=== PATIENT | male | born 1960 | race Caucasian/White ===

== ENCOUNTER 2017-03-27 17:10 | Emergency (ER) | payer OTHER ==
[2017-03-27 17:34] VITALS: BP 131/78
[2017-03-27] MEDS ORDERED: IBUPROFEN 600 MG TABLET PO ONE (17:37)
--- NOTE | 2017-03-27 17:40 | ER Document Report ---
ED Medical Screen (RME) - General Chief Complaint: Fall Stated Complaint: FALL AT WORK/HEAD INJURY Time Seen by Provider: 03/27/17 17:34 Mode of Arrival: Ambulatory Information source: Patient TRAVEL OUTSIDE OF THE [place] IN LAST 30 DAYS: No - HPI Patient complains to provider of: Fall from ladder Onset: This afternoon Notes: 03/27/17 17:39 Patient is a 56-year-old male presenting to the emergency room status post fall from ladder approximately 8 feet in the area, states his right leg got stuck in the latter causing him to land on his head on the ground, he denies loss of consciousness but cannot recall the details of the fall at this point in time, he is complaining of a headache, right sided back pain from the shoulder blade down to the lumbar area, after the fall he went back to work, then went home and took a shower and came to the emergency room - Related Data Allergies/Adverse Reactions: No Known Allergies Allergy (Verified 03/27/17 17:34) Past Medical History - Social History Chew tobacco use (# tins/day): No Frequency of alcohol use: None Drug Abuse: None - Past Medical History Cardiac Medical History: Reports: Hx Hypertension Pulmonary Medical History: Reports: Hx Asthma, Hx COPD Renal/ Medical History: Denies: Hx Peritoneal Dialysis Malignancy Medical History: Reports Hx Skin Cancer - face GI Medical History: Reports: Hx Gastroesophageal Reflux Disease - Immunizations Hx Diphtheria, Pertussis, Tetanus Vaccination: Yes Physical Exam - Vital signs Vitals: Temp Pulse Resp BP Pulse Ox 98.7 F 95 18 131/78 H 98 03/27/17 17:31 03/27/17 17:31 03/27/17 17:31 03/27/17 17:31 03/27/17 17:31 Course - Vital Signs Vital signs: Temp Pulse Resp BP Pulse Ox 98.7 F 95 18 131/78 H 98 03/27/17 17:31 03/27/17 17:31 03/27/17 17:31 03/27/17 17:31 03/27/17 17:31
--- NOTE | 2017-03-27 19:40 | ER Document Report ---
ED Fall - General Chief Complaint: Fall Stated Complaint: FALL AT WORK/HEAD INJURY Time Seen by Provider: 03/27/17 17:34 Mode of Arrival: Ambulatory Information source: Patient TRAVEL OUTSIDE OF THE [place] IN LAST 30 DAYS: No - HPI Patient complains to provider of: fall from ladder Occurred: This afternoon Where: Outdoors, Work Context: Fell from height Associated symptoms: None Location of injury/pain: Back, Head Quality of pain: Achy Severity: Moderate Pain Level: 4 Notes: 03/27/17 17:39 Patient is a 56-year-old male presenting to the emergency room status post fall from ladder approximately 8 feet in the area, states his right leg got stuck in the latter causing him to land on his head on the ground, he denies loss of consciousness but cannot recall the details of the fall at this point in time, he is complaining of a headache, right sided back pain from the shoulder blade down to the lumbar area, after the fall he went back to work, then went home and took a shower and came to the emergency room - Related data Allergies/Adverse Reactions: No Known Allergies Allergy (Verified 03/27/17 17:34) Past Medical History - General Information source: Patient - Social History Smoking Status: Current Some Day Smoker Chew tobacco use (# tins/day): No Frequency of alcohol use: None Drug Abuse: None Family History: Reviewed & Not Pertinent - Past Medical History Cardiac Medical History: Reports: Hx Hypertension Pulmonary Medical History: Reports: Hx Asthma, Hx COPD Renal/ Medical History: Denies: Hx Peritoneal Dialysis Malignancy Medical History: Reports Hx Skin Cancer - face GI Medical History: Reports: Hx Gastroesophageal Reflux Disease - Immunizations Hx Diphtheria, Pertussis, Tetanus Vaccination: Yes Review of Systems - Review of Systems Constitutional: No symptoms reported EENT: No symptoms reported Cardiovascular: No symptoms reported Respiratory: No symptoms reported Gastrointestinal: No symptoms reported Genitourinary: No symptoms reported Male Genitourinary: No symptoms reported Musculoskeletal: See HPI Skin: No symptoms reported Hematologic/Lymphatic: No symptoms reported Neurological/Psychological: No symptoms reported -: Yes All other systems reviewed and negative Physical Exam - Vital signs Vitals: Temp Pulse Resp BP Pulse Ox 98.7 F 95 18 131/78 H 98 03/27/17 17:31 03/27/17 17:31 03/27/17 17:31 03/27/17 17:31 03/27/17 17:31 Interpretation: Normal - General General appearance: Appears well, Alert - HEENT Head: Normocephalic, Atraumatic Eyes: Normal Pupils: PERRL - Respiratory Respiratory status: No respiratory distress Chest status: Nontender Breath sounds: Normal Chest palpation: Normal - Cardiovascular Rhythm: Regular Heart sounds: Normal auscultation Murmur: No - Abdominal Inspection: Normal Distension: No distension Bowel sounds: Normal Tenderness: Nontender Organomegaly: No organomegaly - Back Back: Normal, Tender - Patient has tenderness to palpate in the right paraspinal musculature of the mid to lower thoracic spine in the lumbar spine, there is no ecchymosis, swelling, abrasions or skin lesions - Extremities General upper extremity: Normal inspection, Nontender, Normal color, Normal ROM , Normal temperature General lower extremity: Normal inspection, Nontender, Normal color, Normal ROM , Normal temperature, Normal weight bearing. No: Ludy's sign - Neurological Neuro grossly intact: Yes Cognition: Normal Orientation: AAOx4 [place] Coma Scale Eye Opening: Spontaneous Alex Coma Scale Verbal: Oriented Alex Coma Scale Motor: Obeys Commands [place] Coma Scale Total: 15 Speech: Normal Motor strength normal: LUE, RUE, LLE, RLE Sensory: Normal - Psychological Associated symptoms: Normal affect, Normal mood - Skin Skin Temperature: Warm Skin Moisture: Dry Skin Color: Normal Course - Re-evaluation Re-evalutation: 03/27/17 20:48 Imaging findings were discussed with patient which are unremarkable for acute findings, however he has multiple areas of degenerative changes, he was provided with a copy of CT scan results for the CT head and cervical spine, patient was provided with prescription for pain medication and information for follow-up, advised to return if any additional concerns, patient and spouse acknowledge understanding and agreement with plan - Vital Signs Vital signs: Temp Pulse Resp BP Pulse Ox 98.7 F 95 18 131/78 H 98 03/27/17 17:31 03/27/17 17:31 03/27/17 17:31 03/27/17 17:31 03/27/17 17:31 - Diagnostic Test Radiology reviewed: Image reviewed, Reports reviewed Discharge - Discharge Clinical Impression: Head injury Qualifiers: Encounter type: initial encounter Qualified Code(s): S09.90XA - Unspecified injury of head, initial encounter Lumbar strain Qualifiers: Encounter type: initial encounter Qualified Code(s): S39.012A - Strain of muscle, fascia and tendon of lower back, initial encounter Strain of thoracic region Qualifiers: Encounter type: initial encounter Qualified Code(s): S29.019A - Strain of muscle and tendon of unspecified wall of thorax, initial encounter Condition: Stable Disposition: HOME, SELF-CARE Instructions: Head Injury Precautions ([facility]), Muscle Strain ([facility]), Neck Injury ( Cervical Strain) ([facility]) Additional Instructions: Follow up with your primary care provider in one to 2 days. Return to the emergency room immediately if symptoms worsen or any additional concerns. Prescriptions: Oxycodone HCl/Acetaminophen [Percocet 5-325 mg Tablet] 1 - 2 tab PO ASDIR PRN # 15 tablet PRN Reason: Forms: Return to Work
--- NOTE | 2017-03-29 11:08 | RADIOLOGY REPORT (SQ) ---
EXAM DESCRIPTION: CT CERVICAL SPINE WITHOUT COMPLETED DATE/TIME: 03/27/2017 6:20 pm REASON FOR STUDY: injury COMPARISON: None. TECHNIQUE: Axial images acquired through the cervical spine without intravenous contrast. Images re viewed with lung, soft tissue and bone windows. Reconstructed coronal and sagittal MPR images review ed. Images stored on PACS. LIMITATIONS: None. FINDINGS: ALIGNMENT: Slight scoliosis. No listhesis/subluxation. MINERALIZATION: Normal. VERTEBRAL BODIES: No fractures or dislocation. DISCS: Multilevel disc space narrowing with endplate sclerosis, small osteophytes and irregularities most pronounced at C4-5, C5-6. FACETS, LATERAL MASSES, POSTERIOR ELEMENTS: Lower cervical facet arthropathy. No fracture. VISUALIZED RIBS: No fractures. LUNG APICES AND SOFT TISSUES: No significant or acute findings. OTHER: No other significant finding. IMPRESSION: No acute cervical spine injury evident. TECHNICAL DOCUMENTATION: JOB ID: [id number]
--- NOTE | 2017-03-29 14:05 | RADIOLOGY REPORT (SQ) ---
EXAM DESCRIPTION: T SPINE AP/LAT COMPLETED DATE/TIME: 03/27/2017 7:00 pm REASON FOR STUDY: fall COMPARISON: None. NUMBER OF VIEWS: Two views. TECHNIQUE: AP and lateral radiographic images acquired of the thoracic spine. LIMITATIONS: None. FINDINGS: MINERALIZATION: Normal. ALIGNMENT: Scoliosis convex right thoracolumbar. VERTEBRAE: There appears to be anterior wedge compression of multiple vertebral bodies along the thor acolumbar junction. Associated large osteophytes. Possibly related to Scheuermann's disease althoug h chronic compression fractures in the differential. DISCS: Generalized degenerative disc disease thoracolumbar junction. HARDWARE: None in the spine. MEDIASTINUM AND SOFT TISSUES: Normal heart size and aortic contour. No soft tissue abnormality. VISUALIZED LUNG LARSEN: Clear. OTHER: No other significant finding. IMPRESSION: Thoracolumbar junction scoliosis with anterior wedge compression of multiple to or ronni s and extensive osteophytes. Possibly related to Scheuermann's disease. Appears chronic. TECHNICAL DOCUMENTATION: JOB ID: [id number] [employer]- All Rights Reserved
--- NOTE | 2017-03-29 14:08 | RADIOLOGY REPORT (SQ) ---
EXAM DESCRIPTION: CHEST PA/LAT COMPLETED DATE/TIME: 03/27/2017 7:00 pm REASON FOR STUDY: fall COMPARISON: None. EXAM PARAMETERS: NUMBER OF VIEWS: two views TECHNIQUE: Digital Frontal and Lateral radiographic views of the chest acquired. RADIATION DOSE: NA LIMITATIONS: none FINDINGS: LUNGS AND PLEURA: No opacities, masses or pneumothorax. No pleural effusion. MEDIASTINUM AND HILAR STRUCTURES: No masses or contour abnormalities. HEART AND VASCULAR STRUCTURES: Heart normal size. No evidence for failure. BONES: Multiple age indeterminate thoracolumbar compression fractures. HARDWARE: None in the chest. OTHER: No other significant finding. IMPRESSION: No acute pulmonary disease. TECHNICAL DOCUMENTATION: JOB ID: [id number] [employer]- All Rights Reserved
--- NOTE | 2017-03-29 14:13 | RADIOLOGY REPORT (SQ) ---
EXAM DESCRIPTION: L SPINE WHOLE COMPLETED DATE/TIME: 03/27/2017 7:00 pm REASON FOR STUDY: fall COMPARISON: None. NUMBER OF VIEWS: Five views including obliques. TECHNIQUE: AP, lateral, oblique, and sacral radiographic images acquired of the lumbar spine. LIMITATIONS: None. FINDINGS: MINERALIZATION: Normal. SEGMENTATION: Normal. No transitional anatomy. ALIGNMENT: Scoliosis convex left. VERTEBRAE: There is minimal anterior wedge compression of multiple vertebral bodies at the thoracolum bar junction. Possibly related to Scheuermann's disease. DISCS: Extensive osteophytes in degenerative disc disease thoracolumbar junction at multiple levels. POSTERIOR ELEMENTS: Pedicles and facets are intact. No pars defect or posterior arch defects. HARDWARE: None in the spine. PARASPINAL SOFT TISSUES: Normal. PELVIS: Intact as visualized. No fractures or worrisome bone lesions. SI joints intact. OTHER: No other significant finding. IMPRESSION: Thoracolumbar degenerative disc disease and possible sequelae from Scheuermann's disease . TECHNICAL DOCUMENTATION: JOB ID: [id number] [employer]- All Rights Reserved
--- NOTE | 2017-03-29 15:34 | RADIOLOGY REPORT (SQ) ---
EXAM DESCRIPTION: CT HEAD WITHOUT COMPLETED DATE/TIME: 03/27/2017 6:20 pm REASON FOR STUDY: Injury, pain COMPARISON: none TECHNIQUE: CT brain without IV contrast was performed, 03/27/2017, 1811 hours. Images reviewed at allie ne, subdural, and brain windows. RADIATION DOSE: 64.6 mGy LIMITATIONS: Motion artifact on some of the images FINDINGS: No CT evidence of acute large territory ischemic change, acute intracranial hemorrhage, ma ss effect, or midline shift. Brain parenchyma, ventricles, extra-axial CSF spaces are unremarkable. Bone windows show chronic inflammatory change in the left frontal and left maxillary sinuses. No warner varial fracture. Mastoid air cells clear. IMPRESSION: Limited study from motion artifact. No acute changes.
== END 2017-03-27 19:43 | disposition home or self-care (01) ==
LOC: ER 17:10
DX: S39.012A Strain of muscle, fascia and tendon of lower back, initial encounter (principal); S29.012A Strain of muscle and tendon of back wall of thorax, initial encounter; W11.XXXA Fall on and from ladder, initial encounter; Y99.0 Civilian activity done for income or pay; R51 Headache; F17.200 Nicotine dependence, unspecified, uncomplicated; I10 Essential (primary) hypertension; J44.9 Chronic obstructive pulmonary disease, unspecified; Z85.828 Personal history of other malignant neoplasm of skin; M47.9 Spondylosis, unspecified
CPT/HCPCS: 70450; 71020; 72070; 72110; 72125; 99284

== ENCOUNTER 2017-04-03 12:29 | Emergency (ER) | payer OTHER ==
--- NOTE | 2017-04-03 14:10 | ER Document Report ---
ED General - General Chief Complaint: Back Pain Stated Complaint: WC FOLLOW UP LOWER BACK PAIN Time Seen by Provider: 04/03/17 13:45 Mode of Arrival: Ambulatory Information source: Patient Notes: 56-year-old male presents to ED for complaint of back pain with bilateral arm hand pain and nose pain difficulties urinating. He states he has had back pain since his fall on 03/27/2017 but he has had increased pain now radiating down both legs worse on the left. With no loss of control of bowel or bladder but has had increase in difficulty in urinating. States he since Saturday he has started having difficulty starting his stream even though he feels like he has to urinate. Patient was seen in the emergency room on 03/27/2017. TRAVEL OUTSIDE OF THE [place] IN LAST 30 DAYS: No - HPI Onset: Other - 03/27/2017 with increase in symptoms on 03/30/2017 Onset/Duration: Worse Quality of pain: Sharp, Throbbing Severity: Severe Pain Level: 5 Associated symptoms: Other - Low back pain radiating down to both legs worse on the left increase in difficulty in urinating pain to the left elbow and left hand and increase in pain and the nose. Exacerbated by: Sitting, Movement, Walking Relieved by: Denies Similar symptoms previously: Yes Recently seen / treated by doctor: Yes - Related Data Allergies/Adverse Reactions: No Known Allergies Allergy (Verified 04/03/17 12:48) Past Medical History - General Information source: Patient - Social History Smoking Status: Current Every Day Smoker Cigarette use (# per day): Yes - One third a pack per day Chew tobacco use (# tins/day): No Smoking Education Provided: Yes - Less than 2 minutes Frequency of alcohol use: Social - Couple times a week Drug Abuse: None Occupation: [employer] Lives with: Spouse/Significant other Family History: Reviewed & Not Pertinent Patient has suicidal ideation: No Patient has homicidal ideation: No - Past Medical History Cardiac Medical History: Reports: Hx Hypertension Pulmonary Medical History: Reports: Hx Asthma, Hx COPD Neurological Medical History: Reports: None Endocrine Medical History: Reports: None Renal/ Medical History: Reports: None Malignancy Medical History: Reports Hx Skin Cancer - face GI Medical History: Reports: Hx Gastroesophageal Reflux Disease Musculoskeltal Medical History: Reports None Skin Medical History: Reports None Psychiatric Medical History: Reports: None Traumatic Medical History: Reports: None Infectious Medical History: Reports: None Surgical Hx: Negative Past Surgical History: Reports: None - Immunizations Immunizations up to date: Yes Hx Diphtheria, Pertussis, Tetanus Vaccination: Yes Review of Systems - Review of Systems Constitutional: No symptoms reported EENT: No symptoms reported Cardiovascular: No symptoms reported Respiratory: No symptoms reported Gastrointestinal: No symptoms reported Genitourinary: Other - Difficulty starting his stream but is able to urinate Male Genitourinary: No symptoms reported Musculoskeletal: Back pain, Joint pain - Left elbow and hand, Muscle pain, Muscle stiffness Skin: No symptoms reported Hematologic/Lymphatic: No symptoms reported Neurological/Psychological: No symptoms reported -: Yes All other systems reviewed and negative Physical Exam - Vital signs Vitals: Temp Pulse Resp BP Pulse Ox 98.9 F 84 20 120/60 96 04/03/17 12:52 04/03/17 12:52 04/03/17 12:52 04/03/17 12:52 04/03/17 12:52 Interpretation: Normal - General General appearance: Appears well, Alert - HEENT Head: Normocephalic, Atraumatic Eyes: Normal Pupils: PERRL - Respiratory Respiratory status: No respiratory distress Chest status: Nontender Breath sounds: Normal Chest palpation: Normal - Cardiovascular Rhythm: Regular Heart sounds: Normal auscultation Murmur: No - Abdominal Inspection: Normal Distension: No distension Bowel sounds: Normal Tenderness: Nontender Organomegaly: No organomegaly - Back Back: Normal, Tender, Vertebra tenderness. No: Deformity/step-off, CVA tenderness, Scars, Scoliosis - Extremities General upper extremity: Normal inspection, Nontender, Normal color, Normal ROM , Normal temperature General lower extremity: Normal inspection, Nontender, Normal color, Normal ROM , Normal temperature, Normal weight bearing. No: Ludy's sign - Neurological Neuro grossly intact: Yes Cognition: Normal Orientation: AAOx4 Alex Coma Scale Eye Opening: Spontaneous Alex Coma Scale Verbal: Oriented Mertzon Coma Scale Motor: Obeys Commands Alex Coma Scale Total: 15 Speech: Normal Cranial nerves: Normal Cerebellar coordination: Normal Motor strength normal: LUE, RUE, LLE, RLE Additional motor exam normals: Equal manager protein Babinski reflex: Normal (flexor plantar) Sensory: Normal Biceps - Reflex grade: 2 = Normal Triceps - Reflex grade: 2 = Normal Brachioradialis - Reflex grade: 2 = Normal Knee - Reflex grade: 2 = Normal Ankle - Reflex grade: 2 = Normal - Psychological Associated symptoms: Normal affect, Normal mood - Skin Skin Temperature: Warm Skin Moisture: Dry Skin Color: Normal Course - Re-evaluation Re-evalutation: 04/03/17 17:5 After examining patient early today I called Dr. Valdovinos and discussed his assessment with her and she stated that he would need a MRI with contrast to the lumbar spine. CBC and chemistry were ordered an IV placed. MRI was completed. Dr. Duron just called me and stated that she thinks she can see a fracture of the T10 just out of the line of her MRI and if the pain patient is in a lot of pain and will need some pain medicine and then go to CT for CT of the thoracic spine. CT of the thoracic spine was ordered and morphine was ordered. 04/03/17 19:59 CT of the bite spine showed nothing acute. Patient was discharged home with instructions to follow-up with his Workmen's Comp. doctor tomorrow. Results of the x-ray MRI and CT were given to the patient to take to his primary doctor. Patient encouraged to use ibuprofen ice and warm to his back. Patient instructed to use ice to his elbow and hand. - Vital Signs Vital signs: Temp Pulse Resp BP Pulse Ox 97.8 F 70 12 113/83 96 04/03/17 19:45 04/03/17 19:45 04/03/17 19:45 04/03/17 19:45 04/03/17 19:45 - Laboratory Result Diagrams: 04/03/17 14:20 Laboratory results interpreted by me: 04/03/17 14:20 BUN 26 H - Diagnostic Test Radiology reviewed: Image reviewed, Reports reviewed Discharge - Discharge Clinical Impression: Lumbar strain Qualifiers: Encounter type: subsequent encounter Qualified Code(s): S39.012D - Strain of muscle, fascia and tendon of lower back, subsequent encounter Strain of thoracic region Qualifiers: Encounter type: subsequent encounter Qualified Code(s): S29.019D - Strain of muscle and tendon of unspecified wall of thorax, subsequent encounter Left elbow contusion Qualifiers: Encounter type: initial encounter Qualified Code(s): S50.02XA - Contusion of left elbow, initial encounter Contusion of left hand Qualifiers: Encounter type: initial encounter Qualified Code(s): S60.222A - Contusion of left hand, initial encounter Condition: Stable Disposition: HOME, SELF-CARE Additional Instructions: MUSCLE STRAIN: You have strained a muscle -- torn the fibers within the muscle. This often occurs with strenuous exertion, or during an injury that suddenly stretches the muscle. The seriousness of a strain varies. Some strains heal within days, others cause problems for months. X-rays cannot show a muscle strain. X-rays are taken only if symptoms suggest that a fracture could be present. The usual treatment of a muscle strain is rest and ice packs. Sometimes, a sling, splint, or crutches may be necessary to rest the muscle. The muscle can be used again once pain subsides. Severe strains require a special exercise and stretching program to prevent permanent stiffness and disability. Your doctor will advise you if this will be necessary. Call the doctor immediately if pain or swelling becomes severe, or if numbness or discoloration develop. CONTUSION: Your injury has resulted in a contusion -- a crushing of the deep tissues. No injury to important structures was detected during the physician's exam. Contusions vary in the amount of pain they cause, and in the length of time required for healing. Typically, the area will become bruised, and will remain painful to touch for two or three weeks. However, most patients are back to working and playing within a few days. After the initial period of rest and cold-packs, your symptoms (together with the doctor's recommendations) will determine how rapidly you can get back to full activity. Usually this means "do what feels okay, but don't do things that hurt." If re-examination was recommended, it's important to follow up as instructed. Call the doctor or return any time if pain increases, if swelling becomes severe, if you develop numbness or weakness in an injured extremity, or if any other alarming symptoms occur. LOW BACK PAIN: Three out of every four people will have an episode of disabling back pain during their lifetime. Most commonly the pain is due to straining of the muscles and ligaments in the low back. Usual treatment includes: (1) Rest on a firm surface. Avoid lying on your stomach. (2) Ice pack the painful area. After a few days, gentle heat may be used intermittently to relax the area, or ice packs can be continued. (3) Medication may be needed -- muscle relaxers and antiinflammatory medicines are commonly used. (4) As the back improves, exercises are prescribed to strengthen the back and abdominal muscles. Your doctor will advise you on the proper care for your back at each stage in your recovery. You may be better in a few days -- or healing may take several weeks. If new symptoms of a "herniated disc" (radiation of pain, numbness, or tingling down the back of the leg or weakness in the leg) occur, you should be re-examined. Further testing may be necessary. PAIN MEDICATION INJECTION: You have received an injection of a pain medication. You should experience significant pain relief within 45 minutes. If this medication is a narcotic, it will impair your judgement, slow your reaction time and make you sleepy (as well as relieve your pain). Narcotics also can cause nausea. You should not drive, work with machinery, or perform any task requiring mental alertness until all effects of the medication are gone -- six to eight hours. Do not take any alcohol, or sedatives, and do not take any other medication without checking with your physician. USE OF TYLENOL (ACETAMINOPHEN): Acetaminophen may be taken for pain relief or fever control. It's much safer than aspirin, offering a wider range of "safe" dosages. It is safe during . Some brand names are Tylenol, Panadol, Datril, Anacin 3, Tempra, and Liquiprin. Acetaminophen can be repeated every four hours. The following are maximum recommended dosages: WEIGHT Dose Drops Elixir Chewable( 80mg) (LBS.) drprs=droppers tsp=teaspoon 6 40 mg 0.4 ml (1/2) 6-11 80 mg 0.8 ml (full) tsp 1 tab 12-16 120 mg 1 1/2 drprs 3/4 tsp 1 1/2 tabs 17-23 160 mg 2 drprs 1 tsp 2 tabs 24-30 240 mg 3 drprs 1 1/2 tsp 3 tabs 30-35 320 mg 2 tsp 4 tabs 36-41 360 mg 2 1/4 tsp 4 1/2 tabs 42-47 400 mg 2 1/2 tsp 5 tabs 48-53 480 mg 3 tsp 6 tabs 54-59 520 mg 3 1/4 tsp 6 1/2 tabs 60-64 560 mg 3 1/2 tsp 7 tabs 65-70 600 mg 3 3/4 tsp 7 1/2 tabs 71-76 640 mg 4 tsp 8 tabs 77-82 720 mg 4 1/2 tsp 9 tabs 83-88 800 mg 5 tsp 10 tabs >89 pounds or adults 650 mg to 900 mg Acetaminophen can be repeated every four hours. Maximum dose not to exceed 4000 mg a day. These maximum recommended dosages are slightly higher than the dosages written on the product container, but these dosages are very safe and below the toxic dosage for acetaminophen. ICE PACKS: Apply ice packs frequently against the painful area. Many different schedules are recommended, such as "20 minutes on, 20 minutes off" or "one hour ice, two hours rest." If you need to work, you may need to go longer between ice treatments. You should plan to have the area ice packed AT LEAST one fourth of the time. The ice should be applied over the wrap, tape, or splint, or over a layer of cloth -- not directly against the skin. Some ice bags have a built-in cloth and can be put directly on the skin. WARM PACKS: After approximately two days, apply gentle heat (such as a heating pad or hot water bottle) for about 20 to 30 minutes about every two hours -- at least four times daily. Warmth and elevation will help you make a more rapid recovery , and will ease the pain considerably. Do not use HOT heat, and never apply heat for longer than 30 minutes. The continuous heat can invisibly damage skin and muscles -- even when no burn is seen on the surface. Damaged muscles can make you MORE sore. FOLLOW-UP CARE: If you have been referred to a physician for follow-up care, call the physician s office for an appointment as you were instructed or within the next two days. If you experience worsening or a significant change in your symptoms, notify the physician immediately or return to the Emergency Department at any time for re-evaluation. You have had a x-ray of your hand and elbow that showed no acute injuries. He then had a MRI of your lumbar spine due to you stating you were having difficulty urinating. The MRI showed swelling at the thoracic spine and the radiologist recommended a CT of the thoracic spine. This was completed but there was no fractures of the thoracic spine. All changes were degenerative changes with no acute injuries. A written report of your CT, MRI, and x-rays were given to you to take to your primary doctor to follow-up.
[2017-04-03 14:55] LABS: ANION GAP 6 (5-19); BLOOD UREA NITROGEN 26 mg/dL (7-20); CALCIUM 9.3 mg/dL (8.4-10.2); CARBON DIOXIDE 29 mmol/L (22-30); CHLORIDE 106 mmol/L (98-107); CREATININE RESULT 0.75 mg/dL (0.52-1.25); GLUCOSE 95 mg/dL (75-110); POTASSIUM 4.3 mmol/L (3.6-5.0); SODIUM 141.3 mmol/L (137-145)
[2017-04-03 15:08] LABS: APPEARANCE,URINE CLEAR; BILIRUBIN,URINE NEGATIVE (NEGATIVE); GLUCOSE, URINE NEGATIVE (NEGATIVE); KETONES,URINE NEGATIVE (NEGATIVE); LEUKOCYTE ESTERASE,URINE NEGATIVE (NEGATIVE); NITRITE,URINE NEGATIVE (NEGATIVE); PROTEIN,URINE NEGATIVE (NEGATIVE); URINE SPECIFIC GRAVITY 1.028; UROBILINOGEN,URINE NEGATIVE mg/dL (<2.0)
--- NOTE | 2017-04-03 15:29 | RADIOLOGY REPORT (SQ) ---
EXAM DESCRIPTION: HAND LEFT 3 VIEWS COMPLETED DATE/TIME: 04/03/2017 3:05 pm REASON FOR STUDY: fall 03/27/17 increase in pain COMPARISON: None. EXAM PARAMETERS: NUMBER OF VIEWS: Three views. TECHNIQUE: AP, lateral and oblique radiographic images acquired of the left hand. LIMITATIONS: None. FINDINGS: MINERALIZATION: Normal. BONES: No acute fracture or dislocation. No worrisome bone lesions. JOINTS: Mild joint space narrowing and bony spurring at the left thumb interphalangeal joint. SOFT TISSUES: Faintly radiopaque 4 x 0.5 mm soft tissue foreign body in the ulnar aspect of the thumb soft tissues at the level of the distal phalanx. This is marked with an arrow. OTHER: No other significant finding. IMPRESSION: No acute fracture or malalignment. Faintly radiopaque foreign body in the soft tissues ulnar aspect, left thumb TECHNICAL DOCUMENTATION: JOB ID: [id number] [id number]- All Rights Reserved
--- NOTE | 2017-04-03 15:30 | RADIOLOGY REPORT (SQ) ---
EXAM DESCRIPTION: ELBOW LEFT OVER 2 VIEWS COMPLETED DATE/TIME: 04/03/2017 3:05 pm REASON FOR STUDY: fall 03/27/17 increase in pain COMPARISON: None. NUMBER OF VIEWS: Four views. TECHNIQUE: AP, lateral, and both oblique radiographic images acquired of the left elbow. LIMITATIONS: None. FINDINGS: MINERALIZATION: Normal. BONES: No acute fracture or dislocation. No worrisome bone lesions. JOINT: No effusion. SOFT TISSUES: No soft tissue swelling. No foreign body. OTHER: No other significant finding. IMPRESSION: NEGATIVE STUDY OF THE LEFT ELBOW. NO RADIOGRAPHIC EVIDENCE OF ACUTE INJURY. TECHNICAL DOCUMENTATION: JOB ID: [id number] [employer]- All Rights Reserved
[2017-04-03] MEDS ORDERED: MORPHINE SULFATE 10 MG/ML INJ IV ONE (17:54)
--- NOTE | 2017-04-03 17:59 | RADIOLOGY REPORT (SQ) ---
EXAM DESCRIPTION: MRI LUMBAR SPINE WITHOUT COMPLETED DATE/TIME: 04/03/2017 5:41 pm REASON FOR STUDY: urinary retention back injury consulted Dr Ashford COMPARISON: Lumbar spine plain films 03/27/2017 TECHNIQUE: Sagittal and Axial imaging includes T1, T2, STIR and gradient echo sequences. Coronal T2/ HASTE imaging. LIMITATIONS: Motion artifact on the T1 and STIR images FINDINGS: VISUALIZED UPPER ABDOMEN: Limited evaluation. No acute or suspicious findings suggested. SEGMENTATION: No transitional anatomy. The lowest well-developed disc space is labeled L5-S1. ALIGNMENT: Mild grade 1 anterolisthesis of L4 over L5 related to advanced facet arthropathy. VERTEBRAE: Intact. BONE MARROW: There is edema in the bilateral pedicles at T10 and the facet articular processes. Frac tures do this area could not be excluded. This finding was discussed with Sherry in the emergency ro om DISC SIGNAL: Diffuse decreased T2 weighted intervertebral disc signal with multilevel disc space loss of height. POSTERIOR ELEMENTS: Generally intact. No pars defect evident. HARDWARE: None in the spine. CORD AND CONUS: Normal in size and signal intensity. Conus at the T12-L1 level. SOFT TISSUES: No aortic aneurysm seen. No bulky retroperitoneal adenopathy or mass. No paraspinal mas s or fluid. T10-11: At the upper edge of the field of view. There is broad diffuse posterior disc bulging left greater than right with mild central canal stenosis and moderate left foraminal narrowing. No right foraminal narrowing. T11-12: Broad diffuse posterior disc bulging is present with mild central canal stenosis and mild bi lateral inferior foraminal narrowing. No distal thoracic cord impingement. T12-L1: Broad diffuse posterior disc bulging is present with mild bilateral facet hypertrophy. Mild central canal stenosis. Moderate right, mild left foraminal narrowing from facet hypertrophy and di sc bulging. L1-L2: Moderate central canal stenosis with effacement of the CSF around the lumbar nerve roots from broad diffuse posterior disc bulging and bulky bilateral facet and ligament hypertrophy. Moderate ri ght, mild left foraminal narrowing. L2-L3: Moderate to high-grade central canal stenosis results from broad diffuse posterior disc bulge and bony spurring and bulky bilateral facet and ligament hypertrophy. There is effacement of the CSF around the lumbar nerve roots. This is best shown on axial T2 series 6, image 17. Mild right, mode rate left foraminal narrowing without definite exiting L2 nerve root impingement. L3-L4: Mild central canal stenosis results from broad diffuse disc bulge and bony spurring and bulky bilateral facet and ligament hypertrophy. Mild bilateral inferior foraminal narrowing without exitin g L3 nerve root impingement. L4-L5: Moderate central canal stenosis results from broad diffuse posterior disc bulge and bulky bila teral facet and ligament hypertrophy along with grade 1 anterolisthesis of L4 over L5. This is best shown on axial T2 series 6, image 28. Mild right, moderate left foraminal narrowing without exiting L4 nerve root impingement. L5-S1: No significant spinal stenosis or exit foraminal stenosis. SACRUM: Visualized upper sacrum intact. OTHER: No evidence of epidural hematoma. No evidence of acute lumbar compression fracture. Bilatera l T10 pedicle and posterior facet articular process edema, fracture this area could not be excluded IMPRESSION: Bilateral T10 pedicle and posterior facet articular process edema, fracture in this area could not be excluded. This is at the upper edge of the field of view on today's lumbar MR No acute changes over the lumbar spine TECHNICAL DOCUMENTATION: JOB ID: [id number] [employer]- All Rights Reserved
--- NOTE | 2017-04-03 19:05 | RADIOLOGY REPORT (SQ) ---
EXAM DESCRIPTION: CT THORACIC SPINE WITHOUT COMPLETED DATE/TIME: 04/03/2017 6:26 pm REASON FOR STUDY: back pain recommended ct by Dr Muniz COMPARISON: MRI dated 04/03/2017 TECHNIQUE: Axial images acquired through the thoracic spine without intravenous contrast. Images re viewed with lung, soft tissue and bone windows. Reconstructed coronal and sagittal MPR images review ed. Images stored on PACS. All CT scanners at this facility use dose modulation, iterative reconstruction, and/or weight based d osing when appropriate to reduce radiation dose to as low as reasonably achievable (ALARA). [facility]: Dose Right [facility]: CareDose [facility]: Dose Right [facility]: Teradose 4D [facility]: Smart [employer] RADIATION DOSE: Up-to-date CT equipment and radiation dose reduction techniques were employed. CTDIv ol: 38.2 mGy. DLP: 1366 mGy-cm. mGy. LIMITATIONS: None. FINDINGS: VISUALIZED LUNGS: No acute opacities. No pneumothorax. SOFT TISSUES: No soft tissue swelling. No masses. VERTEBRAL BODIES: Mild chronic wedging of T11 and T12. No acute fracture DISCS: Mild degenerative disc disease extending from T1 through T11 with severe degenerative disc dis ease extending from T11 through L3. ALIGNMENT: Mild scoliosis. TRANSVERSE PROCESSES, POSTERIOR ELEMENTS: No fracture. Severe degenerative changes involving some of the facet joints including T10-T11 which would account for the edema seen on recent MRI. HARDWARE: None in the spine. VISUALIZED RIBS: No fractures. OTHER: No other significant finding. IMPRESSION: 1. Degenerative changes without evidence of acute fracture. 2. The edema described on recent MRI is related to severe degenerative changes involving the facet j oints. TECHNICAL DOCUMENTATION: JOB ID: [id number] Quality ID # [id number]: Final reports with documentation of one or more dose reduction techniques (e.g., Au tomated exposure control, adjustment of the mA and/or kV according to patient size, use of iterative reconstruction technique) 2010 [employer]- All Rights Reserved
[2017-04-03 19:47] VITALS: BP 113/83
== END 2017-04-03 19:52 | disposition home or self-care (01) ==
LOC: ER 12:29
DX: S39.012A Strain of muscle, fascia and tendon of lower back, initial encounter (principal); S29.012A Strain of muscle and tendon of back wall of thorax, initial encounter; S50.02XA Contusion of left elbow, initial encounter; S60.222A Contusion of left hand, initial encounter; W11.XXXA Fall on and from ladder, initial encounter; Y99.0 Civilian activity done for income or pay; R39.12 Poor urinary stream; I10 Essential (primary) hypertension; J44.9 Chronic obstructive pulmonary disease, unspecified; F17.210 Nicotine dependence, cigarettes, uncomplicated
CPT/HCPCS: 99284; 96374; 36415; 80048; 81001; 72148; 73080; 73130; 72128; J2270

== ENCOUNTER 2017-04-25 12:07 | Emergency (ER) | payer OTHER ==
[2017-04-25] MEDS ORDERED: NORMAL SALINE 1000 ML 1,000 ML IV ONE (12:37)
[2017-04-25] MEDS ORDERED: KETOROLAC TROMETHAMINE INJ/PF 30 MG/1 ML SDV IV ONE (12:37)
--- NOTE | 2017-04-25 12:44 | ER Document Report ---
ED Medical Screen (RME) - General Chief Complaint: Abdominal Pain Stated Complaint: RIGH SIDE ABDOMINAL PAIN, SWELLING Time Seen by Provider: 04/25/17 12:36 Mode of Arrival: Ambulatory Information source: Patient TRAVEL OUTSIDE OF THE [place] IN LAST 30 DAYS: No - HPI Patient complains to provider of: abd pain Onset: Other - pt. with 2-3 day h/o R-sided abd pain with exacerbation today. Also has noticed some swelling of abd. on that side. - Related Data Allergies/Adverse Reactions: No Known Allergies Allergy (Verified 04/25/17 12:14) Past Medical History - Social History Chew tobacco use (# tins/day): No Frequency of alcohol use: Occasional Drug Abuse: None - Past Medical History Cardiac Medical History: Reports: Hx Hypertension Pulmonary Medical History: Reports: Hx Asthma, Hx COPD Renal/ Medical History: Denies: Hx Peritoneal Dialysis Malignancy Medical History: Reports Hx Skin Cancer - face GI Medical History: Reports: Hx Gastroesophageal Reflux Disease - Immunizations Immunizations up to date: Yes Hx Diphtheria, Pertussis, Tetanus Vaccination: Yes Physical Exam - Vital signs Vitals: Temp Pulse BP Pulse Ox 97.9 F 103 H 151/89 H 96 04/25/17 12:11 04/25/17 12:11 04/25/17 12:11 04/25/17 12:11 Course - Vital Signs Vital signs: Temp Pulse Resp BP Pulse Ox 97.9 F 103 H 151/89 H 96 04/25/17 12:11 04/25/17 12:11 04/25/17 12:11 04/25/17 12:11
[2017-04-25 13:27] LABS: ABSOLUTE BASOPHILS # (AUTO) 0.1 10^3/uL (0.0-0.2); ABSOLUTE EOSINOPHILS # (AUTO) 0.2 10^3/uL (0.0-0.6); ABSOLUTE LYMPHOCYTES (AUTO) 1.7 10^3/uL (0.5-4.7); ABSOLUTE MONOCYTES (AUTO) 0.5 10^3/uL (0.1-1.4); ABSOLUTE NEUT (AUTO) 4.9 10^3/uL (1.7-8.2); APPEARANCE,URINE CLEAR; BASOPHILS % (AUTO) 0.9 % (0-2); BILIRUBIN,URINE NEGATIVE (NEGATIVE); GLUCOSE, URINE NEGATIVE (NEGATIVE); HEMATOCRIT 48.6 % (37.9-51.0); HEMOGLOBIN 16.6 g/dL (13.5-17.0); HGB HCT DIFFERENCE 1.2; KETONES,URINE NEGATIVE (NEGATIVE); LEUKOCYTE ESTERASE,URINE SMALL (NEGATIVE); LYMPHOCYTES % (AUTO) 23.2 % (13-45); MEAN CORPUSCULAR HEMOGLOBIN 32.4 pg (27.0-33.4); MEAN CORPUSCULAR HGB CONC 34.1 g/dL (32.0-36.0); MEAN CORPUSCULAR VOLUME 95 fl (80-97); NITRITE,URINE NEGATIVE (NEGATIVE); PROTEIN,URINE NEGATIVE (NEGATIVE); RED BLOOD COUNT 5.12 10^6/uL (4.35-5.55); RED CELL DISTRIBUTION WIDTH 13.8 % (11.5-14.0); SEGMENTED NEUTROPHILS % (AUTO) 66.9 % (42-78); URINE SPECIFIC GRAVITY 1.008; UROBILINOGEN,URINE NEGATIVE mg/dL (<2.0); WHITE BLOOD COUNT 7.4 10^3/uL (4.0-10.5)
[2017-04-25 13:43] LABS: ALANINE AMINOTRANSFERASE 38 U/L (21-72); ALBUMIN 4.3 g/dL (3.5-5.0); ALKALINE PHOSPHATASE 129 U/L (38-126); ANION GAP 13 (5-19); ASPARTATE AMINO TRANSFERASE 25 U/L (17-59); BILIRUBIN,DIRECT 0.3 mg/dL (0.0-0.4); BILIRUBIN,TOTAL 0.5 mg/dL (0.2-1.3); BLOOD UREA NITROGEN 14 mg/dL (7-20); CARBON DIOXIDE 26 mmol/L (22-30); CHLORIDE 103 mmol/L (98-107); CREATININE RESULT 0.73 mg/dL (0.52-1.25); GLUCOSE 97 mg/dL (75-110); LIPASE 50.4 U/L (23-300); POTASSIUM 4.6 mmol/L (3.6-5.0); SODIUM 141.7 mmol/L (137-145); TOTAL PROTEIN 7.3 g/dL (6.3-8.2)
[2017-04-25] MEDS ORDERED: MORPHINE SULFATE 10 MG/ML INJ IV ONE (13:53)
--- NOTE | 2017-04-25 13:53 | ER Document Report ---
ED General - General Chief Complaint: Abdominal Pain Stated Complaint: RIGH SIDE ABDOMINAL PAIN, SWELLING Time Seen by Provider: 04/25/17 12:36 Mode of Arrival: Ambulatory Information source: Patient Notes: 56-year-old male presents with complaints of right flank pain that started 2 days prior. Patient denies any fevers or chills denies any nausea vomiting. Patient admits that it hurts on the side more than on the abdomen itself. Patient still has his appendix TRAVEL OUTSIDE OF THE [place] IN LAST 30 DAYS: No - HPI Onset: Other Onset/Duration: Persistent Quality of pain: Achy Severity: Mild Pain Level: 1 Associated symptoms: Other Exacerbated by: Movement Relieved by: Denies Similar symptoms previously: No Recently seen / treated by doctor: No - Related Data Allergies/Adverse Reactions: No Known Allergies Allergy (Verified 04/25/17 12:14) Home Medications: Current Home Medications Amlodipine Besylate/Benazepril [Amlodipine-Benazepril 10-40 mg] 1 cap PO DAILY 04/25/17 [History] Baclofen [Baclofen 20 Mg Tablet] 20 mg PO BID PRN 04/25/17 [History] Budesonide/Formoterol Fumarate [Symbicort 160-4.5 Mcg Inhaler] 2 puff IH BID [History] Clonazepam 0.5 mg PO DAILY 04/25/17 [History] Cyclobenzaprine HCl [Flexeril 10 mg Tablet] 10 mg PO TIDP PRN 04/25/17 [History] Naproxen 500 mg PO BID 04/25/17 [History] Sertraline HCl [Zoloft] 25 mg PO DAILY 04/25/17 [History] Tiotropium [place] [Spiriva] 2 puff IH DAILY 04/25/17 [History] Past Medical History - General Information source: Patient - Social History Smoking Status: Current Some Day Smoker Cigarette use (# per day): Yes Chew tobacco use (# tins/day): No Smoking Education Provided: No Frequency of alcohol use: Occasional Drug Abuse: None Family History: Reviewed & Not Pertinent - Past Medical History Cardiac Medical History: Reports: Hx Hypertension Pulmonary Medical History: Reports: Hx Asthma, Hx COPD Renal/ Medical History: Denies: Hx Peritoneal Dialysis Malignancy Medical History: Reports Hx Skin Cancer - face GI Medical History: Reports: Hx Gastroesophageal Reflux Disease - Immunizations Immunizations up to date: Yes Hx Diphtheria, Pertussis, Tetanus Vaccination: Yes Review of Systems - Review of Systems Notes: REVIEW OF SYSTEMS: CONSTITUTIONAL : Denies fever, chills, or sweats. Denies recent illness. EENT: Denies eye, ear, throat, or mouth pain or symptoms. Denies nasal or sinus congestion or discharge. Denies throat, tongue, or mouth swelling or difficulty swallowing. CARDIOVASCULAR: Denies chest pain. Denies palpitations or racing or irregular heart beat. Denies ankle edema. RESPIRATORY: Denies cough, cold, or chest congestion. Denies shortness of breath, difficulty breathing, or wheezing. GASTROINTESTINAL: Admits to right flank pain GENITOURINARY: Denies difficulty urinating, painful urination, burning, frequency, blood in urine, or discharge. MUSCULOSKELETAL: Denies back or neck pain or stiffness. Denies joint pain or swelling. SKIN: Denies rash, lesions or sores. HEMATOLOGIC : Denies easy bruising or bleeding. LYMPHATIC: Denies swollen, enlarged glands. NEUROLOGICAL: Denies confusion or altered mental status. Denies passing out or loss of consciousness. Denies dizziness or lightheadedness. Denies headache. Denies weakness or paralysis or loss of use of either side. Denies problems with gait or speech. Denies sensory loss, numbness, or tingling. Denies seizures. PSYCHIATRIC: Denies anxiety or stress. Denies depression, suicidal ideation, or homicidal ideation. ALL OTHER SYSTEMS REVIEWED AND NEGATIVE. Dictation was performed using [employer] voice recognition software PHYSICAL EXAMINATION: GENERAL: Well-appearing, well-nourished and in no acute distress. HEAD: Atraumatic, normocephalic. EYES: Pupils equal round and reactive to light, extraocular movements intact, sclera anicteric, conjunctiva are normal. ENT: Nares patent, oropharynx clear without exudates. Moist mucous membranes. NECK: Normal range of motion, supple without lymphadenopathy LUNGS: Breath sounds clear to auscultation bilaterally and equal. No wheezes rales or rhonchi. HEART: Regular rate and rhythm without murmurs ABDOMEN: Soft, right flank pain Musculoskeletal: Normal range of motion, no pitting or edema. No cyanosis. NEUROLOGICAL: Cranial nerves grossly intact. Normal speech, normal gait. Normal sensory, motor exams PSYCH: Normal mood, normal affect. SKIN: Warm, Dry, normal turgor, no rashes or lesions noted. Physical Exam - Vital signs Vitals: Temp Pulse BP Pulse Ox 97.9 F 103 H 151/89 H 96 04/25/17 12:11 04/25/17 12:11 04/25/17 12:11 04/25/17 12:11 Course - Re-evaluation Re-evalutation: 04/25/17 13:52 Patient will be sent for CT imaging, lab work so far notes no significant abnormality - Vital Signs Vital signs: Temp Pulse Resp BP Pulse Ox 97.9 F 103 H 151/89 H 96 04/25/17 12:11 04/25/17 12:11 04/25/17 12:11 04/25/17 12:11 - Laboratory Result Diagrams: 04/25/17 13:10 04/25/17 13:10 Laboratory results interpreted by me: 04/25/17 04/25/17 13:10 13:10 Alkaline Phosphatase 129 H Ur Leukocyte Esterase SMALL H Discharge - Discharge Clinical Impression: Right flank pain DDD (degenerative disc disease) Qualifiers: Spinal region: lumbar Qualified Code(s): M51.36 - Other intervertebral disc degeneration, lumbar region Condition: Stable Disposition: HOME, SELF-CARE Instructions: Flank Pain ([facility]) Additional Instructions: Follow up with your physician tomorrow for further care or return to the ED IMMEDIATELY if symptoms worsen or new concerns occur. If you cannot afford to follow up with your primary care physician a list of low cost clinics have been provided at the end of your discharge papers as well. Prescriptions: Hydrocodone/Acetaminophen [[place] 5-325 mg Tablet] 1 tab PO Q6 #14 tablet
--- NOTE | 2017-04-25 14:37 | RADIOLOGY REPORT (SQ) ---
EXAM DESCRIPTION: CT ABD/PELVIS WITH IV ONLY COMPLETED DATE/TIME: 04/25/2017 2:14 pm REASON FOR STUDY: abd pain COMPARISON: None. TECHNIQUE: CT scan of the abdomen and pelvis performed using helical scanning technique with dynamic intravenous contrast injection. No oral contrast. Images reviewed with lung, soft tissue, and bone windows. Reconstructed coronal and sagittal MPR images reviewed. Delayed images for evaluation of the urinary system also acquired. All images stored on PACS. All CT scanners at this facility use dose modulation, iterative reconstruction, and/or weight based d osing when appropriate to reduce radiation dose to as low as reasonably achievable (ALARA). [facility]: Dose Right [facility]: CareDose [facility]: Dose Right [facility]: Teradose 4D [facility]: [employer] CONTRAST TYPE AND DOSE: contrast/concentration: Isovue 370.00 mg/ml; Total Contrast Delivered: 100.0 ml; Total Saline Delivered: 70.0 ml RENAL FUNCTION: Creatinine 0.73. RADIATION DOSE: Up-to-date CT equipment and radiation dose reduction techniques were employed. CTDIv ol: 16.4 - 19.5 mGy. DLP: 1729 mGy-cm.. LIMITATIONS: None. FINDINGS: LOWER CHEST: No significant findings. No nodules or infiltrates. LIVER: Normal size. No masses. No dilated ducts. SPLEEN: Normal size. No focal lesions. PANCREAS: No masses. No significant calcifications. No adjacent inflammation or peripancreatic fluid collections. Pancreatic duct not dilated. GALLBLADDER: No identified stones by CT criteria. No inflammatory changes to suggest cholecystitis. ADRENAL GLANDS: No significant masses or asymmetry. RIGHT KIDNEY AND URETER: No solid masses. No significant calcifications. No hydronephrosis or hyd roureter. LEFT KIDNEY AND URETER: No solid masses. No significant calcifications. No hydronephrosis or hydr oureter. AORTA AND VESSELS: No aneurysm. No dissection. Renal arteries, SMA, celiac without stenosis. RETROPERITONEUM: No retroperitoneal adenopathy, hemorrhage or masses. BOWEL AND PERITONEAL CAVITY: No masses or inflammatory changes. No free fluid or peritoneal masses. APPENDIX: Normal. PELVIS: No mass. No free fluid. Normal bladder. ABDOMINAL WALL: No masses. No hernias. BONES: No significant or acute findings. Severe degenerative disc disease extending from T11 through L2. Mild chronic anterior wedging of T10 and T11. Mild grade 1 anterolisthesis of L4 on L5 which a ppears degenerative OTHER: No other significant finding. IMPRESSION: ACUTE FINDING IN THE ABDOMEN OR PELVIS ON CT SCAN WITH IV CONTRAST. TECHNICAL DOCUMENTATION: JOB ID: [id number] Quality ID # [id number]: Final reports with documentation of one or more dose reduction techniques (e.g., Au tomated exposure control, adjustment of the mA and/or kV according to patient size, use of iterative reconstruction technique) 2010 [employer]- All Rights Reserved
[2017-04-25 15:30] VITALS: BP 124/84
== END 2017-04-25 15:30 | disposition home or self-care (01) ==
LOC: ER 12:07
DX: R10.9 Unspecified abdominal pain (principal); M51.36 Other intervertebral disc degeneration, lumbar region; F17.210 Nicotine dependence, cigarettes, uncomplicated; I10 Essential (primary) hypertension; J44.9 Chronic obstructive pulmonary disease, unspecified; J45.909 Unspecified asthma, uncomplicated; Z85.828 Personal history of other malignant neoplasm of skin
CPT/HCPCS: 99284; 96361; 96374; 96375; 36415; 83690; 85025; 80053; 81001; 74177; J1885; J2270; J7030

== ENCOUNTER 2018-04-14 14:20 | Emergency (ER) | payer OTHER ==
[2018-04-14] MEDS ORDERED: MORPHINE SULFATE 10 MG/ML INJ IV ONE (15:02)
--- NOTE | 2018-04-14 15:09 | ER Document Report ---
ED General - General Chief Complaint: Breathing Difficulty Stated Complaint: TROUBLE BREATHING Time Seen by Provider: 04/14/18 14:54 TRAVEL OUTSIDE OF THE [place] IN LAST 30 DAYS: No - HPI Notes: 57-year-old male history of COPD and hypertension presents with increasing shortness of breath and left-sided rib pain over the past week. He admits to falling last week and hit his left fist against his left ribs when he fell. He was seen by his primary care physician the next day. X-ray was unremarkable. He was prescribed prednisone and Mobic. He has been using regularly scheduled inhalers and has had continued shortness of breath. He also feels as if his lips are tingling. He feels like his tongue is swollen because he keeps biting the right side of his tongue. He has chronic leg swelling that is unchanged. Denies history of clots or travel. No fevers, but has had sweats and chills. Denies hemoptysis or significant cough. Patient states left-sided rib pain is worse with any attempted cough. After I left the room he told the nurse that he fell again last night and hit his nose while looking in the mirror. - Related Data Allergies/Adverse Reactions: No Known Allergies Allergy (Verified 04/14/18 14:23) Past Medical History - Social History Smoking Status: Current Every Day Smoker Family History: Reviewed & Not Pertinent - Past Medical History Cardiac Medical History: Reports: Hx Hypertension Pulmonary Medical History: Reports: Hx Asthma, Hx COPD Renal/ Medical History: Denies: Hx Peritoneal Dialysis Malignancy Medical History: Reports Hx Skin Cancer - face GI Medical History: Reports: Hx Gastroesophageal Reflux Disease - Immunizations Immunizations up to date: Yes Hx Diphtheria, Pertussis, Tetanus Vaccination: Yes Review of Systems - Review of Systems Notes: Constitutional: Negative for fever. Positive for sweats and chills HENT: Negative for sore throat. Eyes: Negative for visual changes. Cardiovascular: Positive for chest pain. Respiratory: Positive for shortness of breath. Negative for cough or hemoptysis Gastrointestinal: Negative for abdominal pain, vomiting or diarrhea. Genitourinary: Negative for dysuria. Musculoskeletal: Negative for back pain. Skin: Negative for rash. Neurological: Negative for headaches, weakness or numbness. 10 point ROS negative except as marked above and in HPI. Physical Exam - Vital signs Vitals: Temp Pulse Resp BP Pulse Ox 98.6 F 109 H 26 H 138/94 H 96 04/14/18 14:23 04/14/18 14:23 04/14/18 14:23 04/14/18 14:23 04/14/18 14:23 - Notes Notes: PHYSICAL EXAMINATION: GENERAL: Well-appearing, well-nourished and in no acute distress. Appears anxious HEAD: Atraumatic, normocephalic. EYES: Pupils equal round and reactive to light, extraocular movements intact, conjunctiva are normal. ENT: nares patent, oropharynx clear without exudates. Moist mucous membranes. NECK: Normal range of motion, supple without lymphadenopathy LUNGS: Breath sounds clear to auscultation bilaterally and equal. No wheezes rales or rhonchi. Tachypnea. Slightly diminished breath sounds HEART: Regular rhythm, tachycardic, moderate left lower lateral rib tenderness. Few scattered areas of ecchymosis. No crepitus ABDOMEN: Soft, nontender, normoactive bowel sounds. No guarding, no rebound. No masses appreciated. EXTREMITIES: Normal range of motion, mild bilateral nonpitting edema. No cyanosis. NEUROLOGICAL: Cranial nerves grossly intact. Normal speech, normal gait. Normal sensory and motor exams. PSYCH: Normal mood, normal affect. SKIN: Warm, Dry, normal turgor, no rashes or lesions noted. Course - Re-evaluation Re-evalutation: 04/14/18 19:34 Extensive workup unremarkable. No hypoxia. CT shows no pulmonary embolism, small pleural effusion or pneumothorax. No obvious rib fractures. 2 troponins negative. No significant wheezing or diminished lung sounds. Advised importance of primary care follow-up. At this time will discharge with return precautions and follow-up recommendations. Verbal discharge instructions given a the bedside and opportunity for questions given. Medication warnings reviewed. Patient is in agreement with this plan and has verbalized understanding of return precautions and the need for primary care follow-up in the next 24-72 hours. Voice dictation software was used. Chart was reviewed, but errors may exist. - Vital Signs Vital signs: Temp Pulse Resp BP Pulse Ox 98.6 F 109 H 23 H 147/96 H 92 04/14/18 14:23 04/14/18 14:23 04/14/18 16:00 04/14/18 15:16 04/14/18 16:00 - Laboratory Result Diagrams: 04/14/18 15:15 04/14/18 15:15 Laboratory results interpreted by me: 04/14/18 04/14/18 04/14/18 15:15 15:15 15:15 WBC 11.7 H RBC 4.14 L Hgb 13.1 L Absolute Neutrophils 8.4 H D-Dimer 0.96 H BUN 39 H AST 87 H Discharge - Discharge Clinical Impression: Left-sided chest wall pain Dyspnea Qualifiers: Dyspnea type: unspecified Qualified Code(s): R06.00 - Dyspnea, unspecified Condition: Stable Disposition: HOME, SELF-CARE Instructions: Chest Wall Pain ([facility]) Additional Instructions: You must follow-up with your doctor for further evaluation and treatment. Return for worsening or concerning symptoms. Referrals: NASH HAQ MD [ACTIVE STAFF] - Follow up in 3-5 days
[2018-04-14 15:38] LABS: ABSOLUTE EOSINOPHILS # (AUTO) 0.1 10^3/uL (0.0-0.6); ABSOLUTE MONOCYTES (AUTO) 1.1 10^3/uL (0.1-1.4); ABSOLUTE NEUT (AUTO) 8.4 10^3/uL (1.7-8.2); BASOPHILS % (AUTO) 0.4 % (0-2); EOSINOPHILS % (AUTO) 0.9 % (0-6); HEMATOCRIT 39.3 % (37.9-51.0); HEMOGLOBIN 13.1 g/dL (13.5-17.0); LYMPHOCYTES % (AUTO) 17.6 % (13-45); MEAN CORPUSCULAR HEMOGLOBIN 31.6 pg (27.0-33.4); MEAN CORPUSCULAR HGB CONC 33.3 g/dL (32.0-36.0); MEAN CORPUSCULAR VOLUME 95 fl (80-97); MONOCYTES % (AUTO) 9.5 % (3-13); PLATELET COUNT 272 10^3/uL (150-450); RED BLOOD COUNT 4.14 10^6/uL (4.35-5.55); SEGMENTED NEUTROPHILS % (AUTO) 71.6 % (42-78); TOTAL CELLS COUNTED % (AUTO) 100 %; WHITE BLOOD COUNT 11.7 10^3/uL (4.0-10.5)
[2018-04-14 15:51] LABS: ALANINE AMINOTRANSFERASE 64 U/L (21-72); ALKALINE PHOSPHATASE 115 U/L (38-126); ANION GAP 12 (5-19); ASPARTATE AMINO TRANSFERASE 87 U/L (17-59); BILIRUBIN,DIRECT 0.4 mg/dL (0.0-0.4); BILIRUBIN,TOTAL 0.9 mg/dL (0.2-1.3); BLOOD UREA NITROGEN 39 mg/dL (7-20); CALCIUM 9.3 mg/dL (8.4-10.2); CARBON DIOXIDE 24 mmol/L (22-30); CHLORIDE 106 mmol/L (98-107); GLUCOSE 86 mg/dL (75-110); POTASSIUM 4.4 mmol/L (3.6-5.0); SODIUM 141.7 mmol/L (137-145); TOTAL PROTEIN 6.5 g/dL (6.3-8.2)
--- NOTE | 2018-04-14 15:56 | RADIOLOGY REPORT (SQ) ---
EXAM DESCRIPTION: CHEST 2 VIEWS COMPLETED DATE/TIME: 04/14/2018 3:35 pm REASON FOR STUDY: sob, left rib pain COMPARISON: 03/27/2017 EXAM PARAMETERS: NUMBER OF VIEWS: two views TECHNIQUE: Digital Frontal and Lateral radiographic views of the chest acquired. RADIATION DOSE: NA LIMITATIONS: none FINDINGS: LUNGS AND PLEURA: No opacities, masses or pneumothorax. No pleural effusion. MEDIASTINUM AND HILAR STRUCTURES: No masses or contour abnormalities. HEART AND VASCULAR STRUCTURES: Heart normal size. No evidence for failure. BONES: No acute findings. HARDWARE: None in the chest. OTHER: No other significant finding. IMPRESSION: NO ACUTE RADIOGRAPHIC FINDING IN THE CHEST. TECHNICAL DOCUMENTATION: JOB ID: [id number] [employer]- All Rights Reserved Reading location - IP/workstation name: [email or web address]
[2018-04-14] MEDS ORDERED: IPRATROPIUM/ALBUTEROL 0.5-2.5 MG/3 ML AMPUL NEB ONE (16:00)
--- NOTE | 2018-04-14 17:17 | EKG REPORT ---
SEVERITY:- OTHERWISE NORMAL ECG - SINUS TACHYCARDIA : Confirmed by: Ovidio Shukla MD 14-Apr-2018 17:16:45
--- NOTE | 2018-04-14 18:12 | RADIOLOGY REPORT (SQ) ---
EXAM DESCRIPTION: CTA CHEST COMPLETED DATE/TIME: 04/14/2018 5:17 pm REASON FOR STUDY: sob, elevated d dimer COMPARISON: Chest x-ray 04/14/2018 TECHNIQUE: CT scan of the chest performed using helical scanning technique with dynamic intravenous contrast injection. Images reviewed with lung, soft tissue and bone windows. Reconstructed coronal and sagittal MPR images reviewed. Additional 3 dimensional post-processing performed to develop Maximal Intensity Projection images (GA P). All images stored on PACS. All CT scanners at this facility use dose modulation, iterative reconstruction, and/or weight based d osing when appropriate to reduce radiation dose to as low as reasonably achievable (ALARA). [facility]: Dose Right [facility]: CareDose [facility]: Dose Right [facility]: Teradose 4D [facility]: [employer] CONTRAST TYPE AND DOSE: contrast/concentration: Isovue 350.00 mg/ml; Total Contrast Delivered: 154.0 ml; Total Saline Delivered: 185.0 ml Contrast bolus optimized for the pulmonary arteries. Not diagnostic for the aorta. RENAL FUNCTION: BUN 39 creatinine 0.8 RADIATION DOSE: CT Rad equipment meets quality standard of care and radiation dose reduction techniq ues were employed. CTDIvol: 26.9 - 46.3 mGy. DLP: 2000 mGy-cm. . LIMITATIONS: None. FINDINGS: LUNGS AND PLEURA: No masses, infiltrates, or pneumothorax. No pleural effusions or pleura l calcifications. AORTA AND GREAT VESSELS: No aneurysm. Contrast bolus not optimized for the aorta. HEART: No pericardial effusion. No significant coronary artery calcifications. PULMONARY ARTERIES: No emboli visualized in the main pulmonary arteries or the segmental branches. HILAR AND MEDIASTINAL STRUCTURES: No identified masses or abnormal nodes. HARDWARE: None in the chest. UPPER ABDOMEN: No significant findings. Limited exam. THYROID AND OTHER SOFT TISSUES: No masses. No adenopathy. BONES: Scoliosis. No acute findings. 3D MIPS: Confirm above findings. OTHER: No other significant finding. IMPRESSION: NORMAL CTA OF THE CHEST. NO PULMONARY EMBOLI. COMMENT: Quality ID # 436: Final reports with documentation of one or more dose reduction techniques (e.g., Automated exposure control, adjustment of the mA and/or kV according to patient size, use of iterative reconstruction technique) TECHNICAL DOCUMENTATION: JOB ID: [id number] [employer]- All Rights Reserved Reading location - IP/workstation name: [email or web address]
[2018-04-14 19:52] VITALS: BP 141/85
== END 2018-04-14 19:42 | disposition home or self-care (01) ==
LOC: ER 14:20
DX: R07.89 Other chest pain (principal); R06.00 Dyspnea, unspecified; J44.9 Chronic obstructive pulmonary disease, unspecified; I10 Essential (primary) hypertension; R07.81 Pleurodynia; W19.XXXA Unspecified fall, initial encounter; R20.0 Anesthesia of skin; M79.89 Other specified soft tissue disorders; F17.200 Nicotine dependence, unspecified, uncomplicated
CPT/HCPCS: 93005; 94640; 99285; 96374; 36415; 85025; 80053; 84484; 85379; 71046; 71275; 93010; J2270; J7620

== ENCOUNTER 2018-12-31 08:54 | Inpatient (IN) | payer OTHER ==
[2018-12-31] MEDS ORDERED: NORMAL SALINE 1000 ML 1,000 ML IV ONE ×3 (09:04→11:19)
[2018-12-31 09:19] LABS: HEMATOCRIT 44.7 % (37.9-51.0); HEMOGLOBIN 14.8 g/dL (13.5-17.0); MEAN CORPUSCULAR HEMOGLOBIN 31.1 pg (27.0-33.4); MEAN CORPUSCULAR HGB CONC 33.2 g/dL (32.0-36.0); MEAN CORPUSCULAR VOLUME 94 fl (80-97); PLATELET COUNT 305 10^3/uL (150-450); RED BLOOD COUNT 4.77 10^6/uL (4.35-5.55); RED CELL DISTRIBUTION WIDTH 14.9 % (11.5-14.0)
--- NOTE | 2018-12-31 09:23 | ER Document Report ---
Entered by GERMAIN LEY SCRIBE 12/31/18 0919 Acting as scribe for:ARIELLA CARDENAS MD ED General - General Stated Complaint: POSSIBLE STROKE Mode of Arrival: Medic Information source: Emergency Med Personnel Notes: Patient is a 58 year old male with HTN presents to the emergency department via EMS due to altered mental status. According to EMS, patient's neighbors went to check on the patient after they haven't heard from him this morning. They state the patient was found supine in the living room floor in his underwear, wrapped in a shower curtain and chewing on his right hand. They state the patient normal ly lives with his and disabled son however his is currently in [place]. According to EMS patient became combative upon their arrival and they administered 400 mg of ketamine IM. TRAVEL OUTSIDE OF THE [place] IN LAST 30 DAYS: No - Related Data Allergies/Adverse Reactions: No Known Allergies Allergy (Verified 04/14/18 14:23) Past Medical History - General Information source: Emergency Med Personnel, [facility] Records - Social History Smoking Status: Current Every Day Smoker Cigarette use (# per day): Yes Chew tobacco use (# tins/day): No Family History: Reviewed & Not Pertinent - Past Medical History Cardiac Medical History: Reports: Hx Hypertension Pulmonary Medical History: Reports: Hx Asthma, Hx COPD Malignancy Medical History: Reports Hx Skin Cancer - face GI Medical History: Reports: Hx Gastroesophageal Reflux Disease - Immunizations Immunizations up to date: Yes Hx Diphtheria, Pertussis, Tetanus Vaccination: Yes Review of Systems - Review of Systems Notes: ROS obtained from EMS. Constitutional: No symptoms reported EENT: No symptoms reported Cardiovascular: No symptoms reported Respiratory: No symptoms reported Gastrointestinal: No symptoms reported Genitourinary: No symptoms reported Male Genitourinary: No symptoms reported Musculoskeletal: No symptoms reported Skin: No symptoms reported Hematologic/Lymphatic: No symptoms reported Neurological/Psychological: See HPI -: Yes All other systems reviewed and negative Physical Exam - Vital signs Vitals: Pulse Ox 94 12/31/18 09:02 - Notes Notes: GENERAL: Patient is encephalopathic. He is thrashing about, he is yelling out in a moaning manner. He is completely unaware of his surroundings. HEAD: Bald. Several old wounds that are scabbing over on his forehead and top of the head. There is a history of him falling a few weeks ago and striking his head. EYES: Pupils equal approximately 2mm, reactive to light. Extraocular movements intact. ENT: Oral mucosa dry, tongue midline. NECK: Full range of motion. Supple. Trachea midline. LUNGS: Clear to auscultation bilaterally, no wheezes, rales, or rhonchi. No respiratory distress. HEART: Regular rate and rhythm. No murmurs, gallops, or rubs. ABDOMEN: Obese. Soft, non-tender. Non-distended. Bowel sounds present in all 4 quadrants. No guarding, rigidity, or rebound. EXTREMITIES: Moves all 4 extremities spontaneously. No edema, radial and dorsalis pedis pulses 2/4 bilaterally. No cyanosis. There are abrasions and minor skin avulsions on both hands with the right worse than left. These are reportedly from him chewing on his hands this morning. NEUROLOGICAL: Encephalopathic, not aware of his surroundings or communicating. PSYCH: Encephalopathic. SKIN: Warm, dry, normal turgor. Linear erythema to the anterior chest wall. What appears to be chewing hernandez to the bilateral hands consistent with history. Old wounds to the forehead and top of head, consistent with history of recent fall. Course - Re-evaluation Re-evalutation: 12/31/18 10:30 Late history obtained from family: States the patient was with his 5 year old step granddaughter last night. They state she reported the patient was complaining of tooth pain and began pulling at his teeth. He then began to appear confused and started knocking things over in his home. They also report a history of heavy alcohol use. 12/31/18 10:42 As the ketamine began to wear off, the patient again yelling and fighting against his restraints, is still completely unaware of his surroundings. 12/31/18 11:53 The patient was given 75 mg of ketamine IV which provided some control of his combativeness. He received an additional 75 mg of ketamine when he was taken to radiology for f luoroscopic lumbar puncture. During the procedure he received several more doses of ketamine 30 mg IV each time. The radiologist made several attempts including a long needle that he was certain went to the back of the vertebra, it still no fluid came out. This is most likely due to his severe dehydration. The lumbar puncture attempt was stopped at this point the patient was brought back to the emergency department. - Vital Signs Vital signs: Temp Pulse Resp BP Pulse Ox 19 121/66 94 12/31/18 09:21 12/31/18 09:21 12/31/18 09:21 - Laboratory Result Diagrams: 12/31/18 08:45 12/31/18 08:45 Laboratory results interpreted by me: 12/31/18 12/31/18 12/31/18 08:45 08:45 08:45 WBC 23.0 H RDW 14.9 H Seg Neuts % (Manual) 85 H Lymphocytes % (Manual) 11 L Abs Neuts (Manual) 19.6 H Sodium 150.0 H Potassium 5.1 H Chloride 108 H Carbon Dioxide 18 L Anion Gap 24 H BUN 89 H Creatinine 4.93 H Est GFR ( Amer) 15 L Est GFR (Non-Af Amer) 12 L Glucose 73 L Magnesium 2.9 H Total Bilirubin 1.5 H Direct Bilirubin 0.7 H AST 97 H Alkaline Phosphatase 156 H Creatine Kinase 8363 H CK-MB (CK-2) 18.40 H Urine Protein Urine Ketones Urine Blood 12/31/18 11:15 WBC RDW Seg Neuts % (Manual) Lymphocytes % (Manual) Abs Neuts (Manual) Sodium Potassium Chloride Carbon Dioxide Anion Gap BUN Creatinine Est GFR ( Amer) Est GFR (Non-Af Amer) Glucose Magnesium Total Bilirubin Direct Bilirubin AST Alkaline Phosphatase Creatine Kinase CK-MB (CK-2) Urine Protein 30 H Urine Ketones 100 H Urine Blood LARGE H - Diagnostic Test Radiology reviewed: Image reviewed, Reports reviewed - CT scan of the head does not show any acute abnormality. - EKG Interpretation by Me EKG shows normal: Sinus rhythm, [place], Intervals, QRS Complexes, ST-T Waves Rate: Tachycardia - 115 Rhythm: PVC's Critical Care Note - Critical Care Note Total time excluding time spent on procedures (mins): 65 Discharge - Discharge Clinical Impression: Encephalopathy acute, Dehydration Rhabdomyolysis Qualifiers: Rhabdomyolysis type: traumatic Encounter type: initial encounter Qualified Code(s): T79.6XXA - Traumatic ischemia of muscle, initial encounter Acute renal failure Qualifiers: Acute renal failure type: unspecified Qualified Code(s): N17.9 - Acute kidney failure, unspecified Condition: Fair Disposition: ADMITTED INPATIENT Admitting Provider: Darcy (Hospitalist) Unit Admitted: ICU Scribe Attestation: 12/31/18 11:13 I personally performed the services described in the documentation, reviewed and edited the documentation which was dictated to the scribe in my presence, and it accurately records my words and actions. I personally performed the services described in the documentation, reviewed and edited the documentation which was dictated to the scribe in my presence, and it accurately records my words and actions.
--- NOTE | 2018-12-31 09:31 | RADIOLOGY REPORT (SQ) ---
EXAM DESCRIPTION: CT HEAD WITHOUT COMPLETED DATE/TIME: 12/31/2018 9:20 am REASON FOR STUDY: Altered mental status COMPARISON: 03/27/2017 TECHNIQUE: Axial images acquired through the brain without intravenous contrast. Images reviewed wi th bone, brain and subdural windows. Additional sagittal and coronal reconstructions were generated. Images stored on PACS. All CT scanners at this facility use dose modulation, iterative reconstruction, and/or weight based d osing when appropriate to reduce radiation dose to as low as reasonably achievable (ALARA). [facility]: Dose Right [facility]: CareDose [facility]: Dose Right [facility]: Teradose 4D [facility]: [employer] RADIATION DOSE: CT Rad equipment meets quality standard of care and radiation dose reduction techniq ues were employed. CTDIvol: 53.2 mGy. DLP: 1017 mGy-cm. mGy. LIMITATIONS: None. FINDINGS: VENTRICLES: Normal size and contour. CEREBRUM: No masses. No hemorrhage. No midline shift. No evidence for acute infarction. Normal gra y/white matter differentiation. No areas of low density in the white matter. There is physiologic ca lcification in the basal ganglia. CEREBELLUM: No masses. No hemorrhage. No alteration of density. No evidence for acute infarction. EXTRAAXIAL SPACES: No fluid collections. No masses. ORBITS AND GLOBE: No intra- or extraconal masses. Normal contour of globe without masses. CALVARIUM: No fracture. PARANASAL SINUSES: There is chronic left maxillary sinusitis. SOFT TISSUES: No mass or hematoma. OTHER: No other significant finding. IMPRESSION: NORMAL BRAIN CT WITHOUT CONTRAST. EVIDENCE OF ACUTE STROKE: NO. COMMENT: Quality ID # 436: Final reports with documentation of one or more dose reduction techniques (e.g., Automated exposure control, adjustment of the mA and/or kV according to patient size, use of iterative reconstruction technique) TECHNICAL DOCUMENTATION: JOB ID: [id number] [employer]- All Rights Reserved Reading location - IP/workstation name: [email or web address]
[2018-12-31 09:49] LABS: ALANINE AMINOTRANSFERASE 51 U/L (21-72); ALBUMIN 4.8 g/dL (3.5-5.0); ALKALINE PHOSPHATASE 156 U/L (38-126); ASPARTATE AMINO TRANSFERASE 97 U/L (17-59); BILIRUBIN,DIRECT 0.7 mg/dL (0.0-0.4); BILIRUBIN,TOTAL 1.5 mg/dL (0.2-1.3); BLOOD UREA NITROGEN 89 mg/dL (7-20); CALCIUM 9.4 mg/dL (8.4-10.2); GLUCOSE 73 mg/dL (75-110); POTASSIUM 5.1 mmol/L (3.6-5.0); TOTAL PROTEIN 7.4 g/dL (6.3-8.2)
[2018-12-31 09:54] LABS: CARBON DIOXIDE 18 mmol/L (22-30); CHLORIDE 108 mmol/L (98-107)
[2018-12-31 09:57] LABS: ABSOLUTE LYMPHOCYTES# (MANUAL) 2.5 10^3/uL (0.5-4.7); ABSOLUTE MONOCYTES # (MANUAL) 0.9 10^3/uL (0.1-1.4); ABSOLUTE NEUTROPHILS# (MANUAL) 19.6 10^3/uL (1.7-8.2); BASOPHILS % (MANUAL) 0 % (0-2); EOSINOPHILS % (MANUAL) 0 % (0-6); LYMPHOCYTES % (MANUAL) 11 % (13-45); MONOCYTES % (MANUAL) 4 % (3-13); SEGMENTED NEUTROPHILS % (MAN) 85 % (42-78); TOTAL CELLS COUNTED 100
[2018-12-31 09:58] LABS: ANISOCYTOSIS SLIGHT; OVALOCYTES SLIGHT; PLATELET COMMENT ADEQUATE; POIKILOCYTOSIS SLIGHT
[2018-12-31 09:59] LABS: ANION GAP 24 (5-19)
[2018-12-31 10:11] LABS: TROPONIN I < 0.012 ng/mL
[2018-12-31 10:12] LABS: CREATINE KINASE 8363 U/L (55-170)
[2018-12-31] MEDS ORDERED: LORAZEPAM INJ 2 MG/1 ML VIAL IV ONE ×2 (10:25→10:39)
[2018-12-31 10:30] LABS: ALCOHOL < 10 mg/dL (NONE DETECTED)
[2018-12-31 10:40] LABS: INTERNATIONAL RATION (INR) 1.03
[2018-12-31] MEDS ORDERED: KETAMINE HCL INJ 500 MG/10 ML VIAL IV ONE ×3 (10:45→12:24)
[2018-12-31] MEDS ORDERED: KETAMINE HCL INJ 500 MG/10 ML VIAL ONE (11:07)
[2018-12-31] MEDS ORDERED: ACYCLOVIR SODIUM INJ/PF 500 MG/10 ML SDV IV ONE (12:02)
[2018-12-31 12:16] LABS: APPEARANCE,URINE SLIGHTLY HAZY; BILIRUBIN,URINE NEGATIVE (NEGATIVE); COLOR,URINE YELLOW; GLUCOSE, URINE NEGATIVE (NEGATIVE); KETONES,URINE 100 mg/dL (NEGATIVE); PROTEIN,URINE 30 mg/dL (NEGATIVE)
[2018-12-31 12:17] LABS: ADD MANUAL MICROSCOPIC YES; LEUKOCYTE ESTERASE,URINE NEGATIVE (NEGATIVE); NITRITE,URINE NEGATIVE (NEGATIVE); UROBILINOGEN,URINE NEGATIVE mg/dL (<2.0)
[2018-12-31 12:25] LABS: URINE AMPHETAMINES SCREEN NEGATIVE; URINE BARBITURATES SCREEN NEGATIVE; URINE BENZODIAZEPINES SCREEN NEGATIVE; URINE COCAINE SCREEN NEGATIVE; URINE MARIJUANA (THC) SCREEN NEGATIVE; URINE METHADONE SCREEN NEGATIVE; URINE PHENCYCLIDINE SCREEN NEGATIVE
[2018-12-31 12:27] LABS: RBC,URINE 0-1 /HPF
[2018-12-31 12:28] LABS: AMORPHOUS SEDIMENT,UR 2+; BACTERIA,URINE TRACE /HPF; WAXY CASTS,URINE 0-1 /LPF
[2018-12-31] MEDS ORDERED: CEFTRIAXONE 2 GM/D5W RTU 2 GM/50 ML RTUPB IV ONE (12:30)
[2018-12-31] MEDS ORDERED: HALOPERIDOL LACTATE INJ 5 MG/1 ML VIAL IV PRN (12:49)
[2018-12-31] MEDS ORDERED: NORMAL SALINE 1000 ML 1,000 ML IV PRN (12:49)
[2018-12-31] MEDS ORDERED: DEXTROSE 40% GEL 15 GM TUBE PO PRN ×2 (12:55)
[2018-12-31] MEDS ORDERED: DEXTROSE 50%-WATER 25 GM/50 ML DISP.SYRIN IV PRN ×2 (12:55)
[2018-12-31] MEDS ORDERED: GLUCAGON,HUMAN RECOMB 1 MG INJ IM PRN (12:55)
[2018-12-31] MEDS ORDERED: VANCOMYCIN HCL 0 MG in DEXTROSE 5%-WATER 250 ML IV NR (13:00)
[2018-12-31] MEDS ORDERED: DIAZEPAM INJ 10 MG/2 ML DISP.SYRIN IV ONE (14:20)
--- NOTE | 2018-12-31 14:33 | RADIOLOGY REPORT (SQ) ---
EXAM DESCRIPTION: CHEST SINGLE VIEW COMPLETED DATE/TIME: 12/31/2018 2:20 pm REASON FOR STUDY: sob COMPARISON: 04/14/2018 NUMBER OF VIEWS: One view. TECHNIQUE: Single frontal radiographic image of the chest acquired. LIMITATIONS: None. FINDINGS: LUNGS AND PLEURA: Stable appearance. MEDIASTINUM AND HILAR STRUCTURES: Stable heart size and mediastinal structures. HEART AND VASCULAR STRUCTURES: Stable appearance. SUPPORT DEVICES: Appropriate location without change. BONES: No acute findings. OTHER: No other significant finding. IMPRESSION: STABLE APPEARANCE OF THE CHEST. SUPPORT DEVICES UNCHANGED. TECHNICAL DOCUMENTATION: JOB ID: [id number] [employer]- All Rights Reserved Reading location - IP/workstation name: [email or web address]
[2018-12-31] MEDS: CEFTRIAXONE 2 GM/D5W RTU 2 GM/50 ML RTUPB IV SCH (14:52)
[2018-12-31] MEDS ORDERED: CHLORPROMAZINE HCL INJ 25 MG/1 ML AMPULE IV ONE (15:19)
[2018-12-31 15:20] LABS: ARTERIAL BLOOD BASE EXCESS -10.9 mmol/L; ARTERIAL BLOOD H2CO3 0.84 mmol/L (1.05-1.35); ARTERIAL BLOOD HCO3 13.7 mmol/L (20-24); ARTERIAL BLOOD O2 SATURATION 99.3 % (94-98); ARTERIAL BLOOD PCO2 27.8 mmHg (35-45); ARTERIAL BLOOD PH 7.31 (7.35-7.45); ARTERIAL BLOOD PO2 201.9 mmHg (80-100); ARTERIAL BLOOD TOTAL CO2 14.6 mmol/L (23-27)
[2018-12-31] MEDS ORDERED: DIPHENHYDRAMINE HCL 50 MG/ML VIAL IV ONE (15:20)
[2018-12-31 15:23] LABS: ARTERIAL BLOOD FIO2 10
[2018-12-31] MEDS: DEXAMETHASONE SOD PHOS INJ 10 MG/1 ML VIAL IV SCH (15:27)
[2018-12-31 15:33] LABS: ABSOLUTE BASOPHILS # (AUTO) 0.1 10^3/uL (0.0-0.2); ABSOLUTE LYMPHOCYTES (AUTO) 1.1 10^3/uL (0.5-4.7); ABSOLUTE MONOCYTES (AUTO) 1.1 10^3/uL (0.1-1.4); ABSOLUTE NEUT (AUTO) 13.4 10^3/uL (1.7-8.2); BASOPHILS % (AUTO) 0.3 % (0-2); HEMATOCRIT 37.3 % (37.9-51.0); LYMPHOCYTES % (AUTO) 6.9 % (13-45); MEAN CORPUSCULAR HEMOGLOBIN 30.7 pg (27.0-33.4); MEAN CORPUSCULAR HGB CONC 32.9 g/dL (32.0-36.0); MEAN CORPUSCULAR VOLUME 94 fl (80-97); MONOCYTES % (AUTO) 7.1 % (3-13); PLATELET COUNT 264 10^3/uL (150-450); RED BLOOD COUNT 3.99 10^6/uL (4.35-5.55); RED CELL DISTRIBUTION WIDTH 14.7 % (11.5-14.0); SEGMENTED NEUTROPHILS % (AUTO) 85.7 % (42-78); TOTAL CELLS COUNTED % (AUTO) 100 %; WHITE BLOOD COUNT 15.7 10^3/uL (4.0-10.5)
--- NOTE | 2018-12-31 15:36 | RADIOLOGY REPORT (SQ) ---
EXAM DESCRIPTION: FLUORO/NEEDLE PLACEMENT/SPINE COMPLETE DATE/TIME: 12/31/2018 3:20 pm REASON FOR STUDY: ALTERED MENTAL STATUS, LEUKOCYTOSIS FINDINGS: Please see combined report for performance of procedure and radiologic supervision and int erpretation. IMPRESSION: Please see combined report for performance of procedure and radiologic supervision and i nterpretation. Reading location - IP/workstation name: [email or web address]
--- NOTE | 2018-12-31 15:36 | RADIOLOGY REPORT (SQ) ---
EXAM DESCRIPTION: LUMBAR PUNCTURE COMPLETED DATE/TIME: 12/31/2018 3:20 pm REASON FOR STUDY: Altered mental status, leukocytosis COMPARISON: None. FLUOROSCOPY TIME: 1 minutes 42 seconds 3 images saved to PACS. TECHNIQUE: Fluoroscopic guided lumbar puncture. LIMITATIONS: None. PROCEDURE: After written consent and assessment were obtained, the patient was brought into the fluo roscopy room and placed prone on the table. The patient's lower back was prepped in a sterile fashio n and an entry site was selected under live fluoroscopic guidance. The entry site was anesthetized wi th 1% lidocaine. A 22 gauge needle was advanced through the skin and into the thecal sac at multiple levels including L4 and L5. Despite AP and cross-table lateral films demonstrating good positioning of the needle CSF could not be obtained. The patient will be hydrated in the LP re- attempted at a l ater time. FINDINGS: Unsuccessful lumbar puncture attempt. IMPRESSION: Lumbar puncture under fluoroscopy. No immediate complication. COMMENT: Patient medication list reviewed: Yes- Quality ID# [id number]:Eligible professional attests to doc umenting in the medical record they obtained, updated, or reviewed the patient's current medications. . Quality ID 145: Final reports for procedures using fluoroscopy that document radiation exposure marge siobhan, or exposure time and number of fluorographic images (if radiation exposure indices are not avail able) TECHNICAL DOCUMENTATION: JOB ID: [id number] [employer]- All Rights Reserved Reading location - IP/workstation name: [email or web address]
--- NOTE | 2018-12-31 15:38 | PDOC H&P ---
History of Present Illness Admission Date/PCP: 12/31/18 12:35 DORETHA CAMPOS MD Patient complains of: confusion History of Present Illness: NASH MORAN is a 58 year old male with a past medical history of COPD, hypertension, currently being worked up for possible rheumatoid arthritis and chronic alcohol abuse who was brought in due to acute confusion. Patient is on bedside. Patient was reportedly fine yesterday until last night when he reportedly complained that his these were hurting. He was then reported to be having an episode of confusion last night. This morning, patient was found on the floor minimally responsive and was also noted to be confused. EMS was called and he was noted to be very agitated and required multiple doses of ketamine. In the ER he was given p.o. doses of ketamine. His initial head CT is unremarkable. BMP is remarkable for acute renal failure and rhabdomyolysis. Multiple attempts to do a lumbar puncture by radiology where unsuccessful unfortunately. Patient's says that he only drinks 4 beers a day. However another family member did report that he drinks at least 10 cans of beer a day and that patient also uses amphetamine from time to time and after unrecalled recreational drugs. Nobody is able to determine when his last alcohol intake was. UDS and alcohol levels are unremarkable. Family denies any recent fever or chills. On encounter he appears to have a mild left facial droop which the family says they have noticed for 40 minutes prior to this encounter. Past Medical History Cardiac Medical History: Reports: Hypertension Pulmonary Medical History: Reports: Asthma, Chronic Obstructive Pulmonary Disease (COPD) Malignancy Medical History: Reports: Skin Cancer - face GI Medical History: Reports: Gastroesophageal Reflux Disease Social History Smoking Status: Current Every Day Smoker Family History Family History: Reviewed & Not Pertinent Parental Family History Reviewed: Yes - no premature CAD Children Family History Reviewed: No Sibling(s) Family History Reviewed.: No Medication/Allergy Home Medications: Amlodipine Besylate/Benazepril [Amlodipine-Benazepril 10-40 mg] 1 cap PO DAILY 04/25/17 Clonazepam 0.5 mg PO DAILY 04/25/17 Budesonide/Formoterol Fumarate [Symbicort Hfa 160-4.5 Mcg Inhaler 6 gm] 1 puff IH Q12 12/31/18 Fluticasone/Vilanterol [Breo 200-25 Mcg Ellipta 14 Dose/Dpi] 1 inh IH Q12 12/31/18 Naproxen/Esomeprazole Mag [Vimovo Dr 500-20 mg Tablet] 1 each PO Q12 12/31/18 Sertraline HCl [Zoloft 50 mg Tablet] 150 mg PO DAILY 12/31/18 Tiotropium [place] [Spiriva Respimat] 1 puff IH BID 12/31/18 Trazodone HCl [Desyrel 50 mg Tablet] 100 mg PO QHS 12/31/18 Allergies/Adverse Reactions: No Known Allergies Allergy (Verified 04/14/18 14:23) Review of Systems ROS unobtainable: Due to mental status Physical Exam Vital Signs: Temp Pulse Resp BP Pulse Ox 19 121/66 94 12/31/18 09:21 12/31/18 09:21 12/31/18 09:21 Intake & Output 12/30/18 12/31/18 01/01/19 06:59 06:59 06:59 Intake Total 2700 Balance 2700 General appearance: PRESENT: other - agitated Eye exam: PRESENT: conjunctiva pink, EOMI, PERRLA. ABSENT: scleral icterus Ear exam: PRESENT: normal external ear exam Mouth exam: PRESENT: moist, tongue midline Neck exam: ABSENT: carotid bruit, JVD, lymphadenopathy, thyromegaly Respiratory exam: PRESENT: clear to auscultation mandi. ABSENT: rales, rhonchi, wheezes Cardiovascular exam: PRESENT: RRR. ABSENT: diastolic murmur, rubs, systolic murmur Vascular exam: PRESENT: normal capillary refill GI/Abdominal exam: PRESENT: normal bowel sounds, soft. ABSENT: distended, guarding, mass, organolmegaly, rebound, tenderness Rectal exam: PRESENT: deferred Neurological exam: PRESENT: altered, awake, CN II-XII grossly intact - left facial droop. ABSENT: motor sensory deficit Results Laboratory Results: 12/31/18 08:45 12/31/18 08:45 12/31/18 12/31/18 12/31/18 08:45 08:45 11:15 WBC 23.0 H RBC 4.77 Hgb 14.8 Hct 44.7 MCV 94 MCH 31.1 MCHC 33.2 RDW 14.9 H Plt Count 305 Seg Neutrophils % Not Reportable Lymphocytes % Not Reportable Monocytes % Not Reportable Eosinophils % Not Reportable Basophils % Not Reportable Absolute Neutrophils Not Reportable Absolute Lymphocytes Not Reportable Absolute Monocytes Not Reportable Absolute Eosinophils Not Reportable Absolute Basophils Not Reportable Sodium 150.0 H Potassium 5.1 H Chloride 108 H Carbon Dioxide 18 L Anion Gap 24 H BUN 89 H Creatinine 4.93 H Est GFR ( Amer) 15 L Est GFR (Non-Af Amer) 12 L Glucose 73 L Calcium 9.4 Magnesium 2.9 H Total Bilirubin 1.5 H AST 97 H ALT 51 Alkaline Phosphatase 156 H Total Protein 7.4 Albumin 4.8 Urine Color YELLOW Urine Appearance SLIGHTLY HAZY Urine pH 6.0 Ur Specific [place] 1.020 Urine Protein 30 H Urine Glucose (UA) NEGATIVE Urine Ketones 100 H Urine Blood LARGE H Urine Nitrite NEGATIVE Ur Leukocyte Esterase NEGATIVE 12/31/18 12/31/18 08:45 08:45 Creatine Kinase 8363 H CK-MB (CK-2) 18.40 H Troponin I < 0.012 Impressions: Head CT 12/31/18 09:02 IMPRESSION: NORMAL BRAIN CT WITHOUT CONTRAST. EVIDENCE OF ACUTE STROKE: NO. Assessment and Plan - Diagnosis (1) Acute encephalopathy Is this a current diagnosis for this admission?: Yes Plan: Multifactorial. Differentials include encephalopathy from acute renal failure, possibility of alcohol withdrawal will with reported history of heavy alcohol abuse and normal alcohol level on presentation. As mentioned, multiple attempts to do an LP by radiology were unsuccessful. On encounter he appears to have a mild left facial droop which the family says they have noticed for 40 minutes prior to this encounter. CT of the head was unremarkable. Will try to sedate patient to pursue an MRI. No nuchal rigidity on examination. No Kernig's or Brudzinski's signs. Will however empirically cover with Rocephin and vancomycin for now until LP is done. He is currently protecting his airway. (2) Acute renal failure Qualifiers: Acute renal failure type: unspecified Qualified Code(s): N17.9 - Acute kidney failure, unspecified Is this a current diagnosis for this admission?: Yes Plan: He has received 3 L of fluid bolus in the ER. We will continue normal saline at 150 cc/h. Repeat BMP later today. (3) Rhabdomyolysis Qualifiers: Rhabdomyolysis type: traumatic Encounter type: initial encounter Qualified Code(s): T79.6XXA - Traumatic ischemia of muscle, initial encounter Is this a current diagnosis for this admission?: Yes Plan: IV fluids as mentioned. (4) Hypernatremia Is this a current diagnosis for this admission?: Yes Plan: Possibly from dehydration. IV fluids as mentioned. Repeat BMP this afternoon. (5) Alcohol abuse Is this a current diagnosis for this admission?: Yes - Time Time Spent with patient: 25-34 minutes
[2018-12-31 15:44] LABS: HEMOGLOBIN 12.3 g/dL (13.5-17.0)
--- NOTE | 2018-12-31 15:49 | ADVANCED CARE ---
- Diagnosis (1) Acute encephalopathy Diagnosis Current: Yes (2) Acute renal failure Diagnosis Current: Yes (3) Rhabdomyolysis Diagnosis Current: Yes (4) Hypernatremia Diagnosis Current: Yes (5) Alcohol abuse Diagnosis Current: Yes Attendance: Family sent bedside including children and . They expressed patient is a full code. Patient surrogate decision-maker is his . Resuscitation Status: Full Code
[2018-12-31 15:55] LABS: ALANINE AMINOTRANSFERASE 50 U/L (21-72); ALBUMIN 3.5 g/dL (3.5-5.0); ALKALINE PHOSPHATASE 112 U/L (38-126); ANION GAP 17 (5-19); ASPARTATE AMINO TRANSFERASE 92 U/L (17-59); BILIRUBIN,DIRECT 0.4 mg/dL (0.0-0.4); BILIRUBIN,TOTAL 0.8 mg/dL (0.2-1.3); BLOOD UREA NITROGEN 89 mg/dL (7-20); CALCIUM 8.3 mg/dL (8.4-10.2); CARBON DIOXIDE 15 mmol/L (22-30); CHLORIDE 117 mmol/L (98-107); GLUCOSE 92 mg/dL (75-110); POTASSIUM 5.3 mmol/L (3.6-5.0); SODIUM 149.3 mmol/L (137-145); TOTAL PROTEIN 6.1 g/dL (6.3-8.2)
[2018-12-31] MEDS ORDERED: VANCOMYCIN HCL 2,000 MG in DEXTROSE 5%-WATER 500 ML IV ONE (16:00)
--- NOTE | 2018-12-31 18:08 | RADIOLOGY REPORT (SQ) ---
EXAM DESCRIPTION: CT ABD/PELVIS NO ORAL OR IV COMPLETED DATE/TIME: 12/31/2018 5:56 pm REASON FOR STUDY: acute renal failure,?hepatic enceph COMPARISON: None. TECHNIQUE: CT scan of the abdomen and pelvis performed without intravenous or oral contrast. Images reviewed with lung, soft tissue, and bone windows. Reconstructed coronal and sagittal MPR images revi ewed. All images stored on PACS. All CT scanners at this facility use dose modulation, iterative reconstruction, and/or weight based d osing when appropriate to reduce radiation dose to as low as reasonably achievable (ALARA). [facility]: Dose Right [facility]: CareDose [facility]: Dose Right [facility]: Teradose 4D [facility]: [employer] RADIATION DOSE: CT Rad equipment meets quality standard of care and radiation dose reduction techniq ues were employed. CTDIvol: 15.8 mGy. DLP: 854 mGy-cm.mGy. LIMITATIONS: None. FINDINGS: LOWER CHEST: There is considerable opacification in the right lower lobe. NON-CONTRASTED LIVER, SPLEEN, ADRENALS: Evaluation limited by lack of IV contrast. No identified sign ificant masses. PANCREAS: No masses. No peripancreatic inflammatory changes. GALLBLADDER: No identified stones by CT criteria. No inflammatory changes to suggest cholecystitis. RIGHT KIDNEY AND URETER: No suspicious masses. Assessment limited by lack of IV contrast. No signif icant calcifications. No hydronephrosis or hydroureter. LEFT KIDNEY AND URETER: No suspicious masses. Assessment limited by lack of IV contrast. No signifi cant calcifications. No hydronephrosis or hydroureter. AORTA AND RETROPERITONEUM: No aneurysm. No retroperitoneal masses or adenopathy. BOWEL AND PERITONEAL CAVITY: No obvious masses or inflammatory changes. No free fluid. APPENDIX: Normal. PELVIS, BLADDER, AND ABDOMINAL WALL:A Martel catheter is present in the urinary bladder. No pelvic ma sses or fluid collections. BONES: Mild scoliosis. Degenerative disc disease. OTHER: No other significant finding. IMPRESSION: Right lower lobe pneumonia. No acute finding in the abdomen or pelvis. Osseous finding s as described COMMENT: Quality ID # [id number]: Final reports with documentation of one or more dose reduction techniques (e.g., Automated exposure control, adjustment of the mA and/or kV according to patient size, use of iterative reconstruction technique) TECHNICAL DOCUMENTATION: JOB ID: [id number]- All Rights Reserved Reading location - IP/workstation name: [email or web address]
--- NOTE | 2018-12-31 18:09 | RADIOLOGY REPORT (SQ) ---
EXAM DESCRIPTION: MRI HEAD WITHOUT COMPLETED DATE/TIME: 12/31/2018 5:53 pm REASON FOR STUDY: acute facial droop COMPARISON: CT brain 12/31/2018 TECHNIQUE: Multiplanar imaging includes non-contrasted T1, T2, FLAIR, and diffusion with ADC map seq uences. Images stored on PACS. LIMITATIONS: Motion artifact. FINDINGS: ANATOMY: No anomalies. Normal vascular flow voids. Pituitary fossa normal. CSF SPACES: Normal in size and contour. No hemorrhage. CEREBRUM: Sulci and gyri normal in size and contour. Normal white matter signal on FLAIR imaging. No evidence of hemorrhage, mass, or extraaxial fluid collection. POSTERIOR FOSSA: No signal alteration. No hemorrhage. No edema, masses or mass effect. Internal german tory canals, cerebello-pontine angles, mastoids normal. DIFFUSION IMAGING: Negative for acute or sub-acute infarction. ORBITS: No masses. Globes normal. PARANASAL SINUSES: Left maxillary and frontal sinus disease. OTHER: No other significant finding. IMPRESSION: NORMAL MRI OF THE BRAIN WITHOUT INTRAVENOUS GADOLINIUM CONTRAST. EVIDENCE OF ACUTE STROKE: NO. TECHNICAL DOCUMENTATION: JOB ID: [id number] [employer]- All Rights Reserved Reading location - IP/workstation name: [email or web address]
[2018-12-31] MEDS: INSULIN LISPRO 100 UNIT/ML 3 ML VIAL SUBCUT SCH (18:22)
[2018-12-31 21:04] LABS: ARTERIAL BLOOD H2CO3 1.63 mmol/L (1.05-1.35); ARTERIAL BLOOD HCO3 18.1 mmol/L (20-24); ARTERIAL BLOOD O2 SATURATION 98.4 % (94-98); ARTERIAL BLOOD PCO2 54.2 mmHg (35-45); ARTERIAL BLOOD PO2 158.7 mmHg (80-100); ARTERIAL BLOOD TOTAL CO2 19.7 mmol/L (23-27)
[2018-12-31 21:09] LABS: ARTERIAL BLOOD FIO2 60%; ARTERIAL BLOOD PH 7.14 (7.35-7.45)
[2018-12-31] MEDS ORDERED: 1/2 NORMAL SALINE 1,000 ML IV SCH (21:15)
[2018-12-31] MEDS ORDERED: PHARMACY COMMUNICATION ORDER MC NR ×2 (21:15→21:30)
--- NOTE | 2018-12-31 21:25 | RADIOLOGY REPORT (SQ) ---
EXAM DESCRIPTION: [facility]Lex: XR CHEST 1 VIEW CLINICAL HISTORY: 58 years Male, shortness of breath FINDINGS: Since earlier today at 1418, lungs are hypoinflated. This results in interstitial crowding bilaterally. In the lateral right upper lobe, there is a slightly denser area of alveolar/interstitial infiltrate. No pneumothorax or pleural effusion. No mediastinal shift. IMPRESSION: 1. Hypoinflation since earlier this afternoon. 2. Focal density in the lateral right upper lobe is somewhat suspicious for pneumonia. Depending on level of clinical suspicion, repeat radiographs (with better inspiratory effort) may be helpful to confirm pneumonia.
[2018-12-31] MEDS: FENTANYL CITRATE INJ/PF 100 MCG/2 ML AMPUL IV PRN (21:30)
[2018-12-31] MEDS: MIDAZOLAM HCL 50 MG/100 ML RTUINJ IV PRN (21:37)
--- NOTE | 2018-12-31 22:06 | RADIOLOGY REPORT (SQ) ---
XR CHEST 1 VIEW HISTORY: ET/ NG placement. COMPARISON: Radiographs from earlier the same day. FINDINGS: There is a new endotracheal tube with the tip approximately 2 cm from the noel. There is an enteric tube with the tip overlying the proximal stomach near the GE junction. Unchanged appearance of lungs. Stable heart size. IMPRESSION: ET tube in satisfactory position. Enteric tube tip near GE junction; recommend advancement 2 to 3 cm.
[2018-12-31] MEDS ORDERED: LORAZEPAM INJ 2 MG/1 ML VIAL IV PRN (22:20)
[2018-12-31] MEDS ORDERED: FENTANYL CITRATE INJ/PF 100 MCG/2 ML AMPUL ONE (22:21)
[2018-12-31] MEDS ORDERED: LORAZEPAM INJ 2 MG/1 ML VIAL ONE (22:21)
--- NOTE | 2018-12-31 23:39 | EKG REPORT ---
SEVERITY:- ABNORMAL ECG - SINUS TACHYCARDIA SINUS PAUSE/ARREST W/ SUPRAVENTRICULAR ESCAPE : Confirmed by: Beti House 31-Dec-2018 23:38:24
[2018-12-31 23:59] LABS: ARTERIAL BLOOD BASE EXCESS -9.5 mmol/L; ARTERIAL BLOOD FIO2 50%; ARTERIAL BLOOD H2CO3 1.29 mmol/L (1.05-1.35); ARTERIAL BLOOD HCO3 17.6 mmol/L (20-24); ARTERIAL BLOOD O2 SATURATION 98.8 % (94-98); ARTERIAL BLOOD PCO2 42.7 mmHg (35-45); ARTERIAL BLOOD PH 7.23 (7.35-7.45); ARTERIAL BLOOD PO2 167.6 mmHg (80-100); ARTERIAL BLOOD TOTAL CO2 18.9 mmol/L (23-27)
[2019-01-01 01:42] LABS: ANION GAP 11 (5-19); BLOOD UREA NITROGEN 92 mg/dL (7-20); CALCIUM 8.2 mg/dL (8.4-10.2); CARBON DIOXIDE 18 mmol/L (22-30); CHLORIDE 119 mmol/L (98-107); GLUCOSE 128 mg/dL (75-110); POTASSIUM 5.6 mmol/L (3.6-5.0); SODIUM 147.9 mmol/L (137-145)
[2019-01-01] MEDS: MIDAZOLAM HCL 50 MG/100 ML RTUINJ IV PRN ×4 (02:21→17:07)
[2019-01-01] MEDS: 1/2 NORMAL SALINE 1,000 ML IV PRN ×3 (02:29→13:19)
[2019-01-01] MEDS: INSULIN LISPRO 100 UNIT/ML 3 ML VIAL SUBCUT SCH ×4 (02:44→17:09)
[2019-01-01] MEDS: DEXAMETHASONE SOD PHOS INJ 10 MG/1 ML VIAL IV SCH ×5 (02:47→21:37)
[2019-01-01] MEDS ORDERED: SODIUM POLYSTYRENE SULFONATE 15 GM/60 ML NG ONE (05:00)
[2019-01-01 05:31] LABS: HEMATOCRIT 34.7 % (37.9-51.0); HEMOGLOBIN 11.5 g/dL (13.5-17.0); MEAN CORPUSCULAR HEMOGLOBIN 31.3 pg (27.0-33.4); MEAN CORPUSCULAR VOLUME 95 fl (80-97); PLATELET COUNT 197 10^3/uL (150-450); RED BLOOD COUNT 3.67 10^6/uL (4.35-5.55); RED CELL DISTRIBUTION WIDTH 15.1 % (11.5-14.0); WHITE BLOOD COUNT 13.5 10^3/uL (4.0-10.5)
[2019-01-01 05:49] LABS: ABSOLUTE LYMPHOCYTES# (MANUAL) 0.3 10^3/uL (0.5-4.7); ABSOLUTE MONOCYTES # (MANUAL) 0.3 10^3/uL (0.1-1.4); BASOPHILS % (MANUAL) 0 % (0-2); EOSINOPHILS % (MANUAL) 0 % (0-6); LYMPHOCYTES % (MANUAL) 2 % (13-45); MONOCYTES % (MANUAL) 2 % (3-13); PLATELET COMMENT ADEQUATE; SEGMENTED NEUTROPHILS % (MAN) 96 % (42-78); TOTAL CELLS COUNTED 100
[2019-01-01 05:50] LABS: RBC MORPHOLOGY COMMENT NORMO-CYTIC/CHROMIC
[2019-01-01 05:54] LABS: ALANINE AMINOTRANSFERASE 63 U/L (21-72); ALBUMIN 3.3 g/dL (3.5-5.0); ALKALINE PHOSPHATASE 98 U/L (38-126); ANION GAP 9 (5-19); ASPARTATE AMINO TRANSFERASE 110 U/L (17-59); BILIRUBIN,DIRECT 0.3 mg/dL (0.0-0.4); BILIRUBIN,TOTAL 0.6 mg/dL (0.2-1.3); BLOOD UREA NITROGEN 80 mg/dL (7-20); CALCIUM 8.7 mg/dL (8.4-10.2); CARBON DIOXIDE 19 mmol/L (22-30); CHLORIDE 119 mmol/L (98-107); GLUCOSE 130 mg/dL (75-110); POTASSIUM 5.2 mmol/L (3.6-5.0); SODIUM 146.8 mmol/L (137-145); TOTAL PROTEIN 5.8 g/dL (6.3-8.2)
[2019-01-01 06:28] LABS: ARTERIAL BLOOD BASE EXCESS -8.3 mmol/L; ARTERIAL BLOOD H2CO3 1.04 mmol/L (1.05-1.35); ARTERIAL BLOOD O2 SATURATION 96.8 % (94-98); ARTERIAL BLOOD PCO2 34.4 mmHg (35-45); ARTERIAL BLOOD PH 7.31 (7.35-7.45); ARTERIAL BLOOD PO2 95.5 mmHg (80-100)
[2019-01-01 06:30] LABS: ARTERIAL BLOOD FIO2 30%
[2019-01-01] MEDS: CEFTRIAXONE 2 GM/D5W RTU 2 GM/50 ML RTUPB IV SCH ×3 (07:33→21:36)
[2019-01-01] MEDS: HEPARIN SOD (PORCINE) 5,000 UNIT/ML 1 ML SYRINGE SUBCUT SCH ×3 (07:33→21:39)
--- NOTE | 2019-01-01 08:44 | RADIOLOGY REPORT (SQ) ---
EXAM DESCRIPTION: CHEST SINGLE VIEW COMPLETED DATE/TIME: 01/01/2019 6:30 am REASON FOR STUDY: resp. failure NGT placement COMPARISON: 12/31/2018 NUMBER OF VIEWS: One view. TECHNIQUE: Single frontal radiographic image of the chest acquired. LIMITATIONS: None. FINDINGS: LUNGS AND PLEURA: Perihilar and right upper lobe airspace opacities are not significantly changed. There is no pneumothorax. MEDIASTINUM AND HEART: Stable heart size and mediastinal structures. SUPPORT DEVICES: Appropriate location without change. BONY STRUCTURES: No acute findings. HARDWARE: None. OTHER: No other significant finding. IMPRESSION: STABLE APPEARANCE OF THE CHEST. SUPPORT DEVICES UNCHANGED. Reading location - IP/workstation name: [email or web address]
[2019-01-01 09:08] LABS: HEMATOCRIT 34.8 % (37.9-51.0); HEMOGLOBIN 11.4 g/dL (13.5-17.0); MEAN CORPUSCULAR HEMOGLOBIN 30.8 pg (27.0-33.4); MEAN CORPUSCULAR HGB CONC 32.7 g/dL (32.0-36.0); MEAN CORPUSCULAR VOLUME 94 fl (80-97); PLATELET COUNT 191 10^3/uL (150-450); RED BLOOD COUNT 3.69 10^6/uL (4.35-5.55); WHITE BLOOD COUNT 11.8 10^3/uL (4.0-10.5)
[2019-01-01 09:38] LABS: ABSOLUTE LYMPHOCYTES# (MANUAL) 0.1 10^3/uL (0.5-4.7); ABSOLUTE MONOCYTES # (MANUAL) 0.2 10^3/uL (0.1-1.4); ABSOLUTE NEUTROPHILS# (MANUAL) 11.4 10^3/uL (1.7-8.2); BASOPHILS % (MANUAL) 0 % (0-2); EOSINOPHILS % (MANUAL) 0 % (0-6); LYMPHOCYTES % (MANUAL) 1 % (13-45); MONOCYTES % (MANUAL) 2 % (3-13); SEGMENTED NEUTROPHILS % (MAN) 97 % (42-78); TOTAL CELLS COUNTED 100
[2019-01-01 09:39] LABS: PLATELET COMMENT ADEQUATE; RBC MORPHOLOGY COMMENT NORMO-CYTIC/CHROMIC
[2019-01-01] MEDS: VANCOMYCIN HCL 750 MG in DEXTROSE 5%-WATER 250 ML IV SCH ×2 (09:39→21:40)
[2019-01-01] MEDS: PANTOPRAZOLE SODIUM 40 MG VIAL IV SCH (09:39)
[2019-01-01] MEDS ORDERED: PROPOFOL 1,000 MG/100 ML INFUS..BTL IV ONE (09:42)
[2019-01-01] MEDS: PROPOFOL 1,000 MG/100 ML INFUS..BTL IV PRN ×3 (09:50→21:34)
[2019-01-01] MEDS ORDERED: ALPRAZOLAM 0.5 MG TABLET NG PRN (10:09)
[2019-01-01 10:35] LABS: APPEARANCE,URINE CLEAR; BILIRUBIN,URINE NEGATIVE (NEGATIVE); COLOR,URINE YELLOW; GLUCOSE, URINE NEGATIVE (NEGATIVE); KETONES,URINE 20 mg/dL (NEGATIVE); LEUKOCYTE ESTERASE,URINE TRACE (NEGATIVE); NITRITE,URINE NEGATIVE (NEGATIVE); PROTEIN,URINE NEGATIVE (NEGATIVE); URINE SPECIFIC GRAVITY 1.016; UROBILINOGEN,URINE NEGATIVE mg/dL (<2.0)
--- NOTE | 2019-01-01 12:00 | PDOC PROGRESS REPORT ---
Subjective Progress Note for:: 01/01/19 Subjective:: This is a 58 years old male patient with past medical history of COPD, hypertension, alcohol and drug abuse brought with chief complaint of altered mental status. Patient was found on the floor minimally responsive and also noted to be confused. His initial blood work shows marked leukocytosis of 23,000 and markedly elevated creatinine of 4.93. Possibility of bacterial meningitis considered and the patient has been empirically started on ceftriaxone vancomycin and dexamethasone. 3 attempts to get lumbar puncture by interventional radiology failed. I put in the order for LP today. On top of Vanco and ceftriaxone I started him also on acyclovir. This morning his blood work shows his white cells is trending remarkably down yesterday it was 26,000 today it is 13.5 and his creatinine dropped from 4.932 2.10. Reason For Visit: ACUTE ENCEPHALOPATHY,ACUTE RENAL FAILURE, Physical Exam Vital Signs: Temp Pulse Resp BP Pulse Ox 97.5 F 85 18 97/85 L 97 01/01/19 08:00 01/01/19 10:00 01/01/19 10:00 01/01/19 10:00 01/01/19 10:00 Intake & Output 12/31/18 01/01/19 01/02/19 06:59 06:59 06:59 Intake Total 5336 1359 Output Total 1795 730 Balance 3541 629 Weight 90.1 kg General appearance: PRESENT: no acute distress Head exam: PRESENT: atraumatic Eye exam: PRESENT: conjunctiva pink Neck exam: ABSENT: carotid bruit, JVD, lymphadenopathy, thyromegaly Respiratory exam: PRESENT: clear to auscultation mandi. ABSENT: rales, rhonchi, wheezes Cardiovascular exam: PRESENT: RRR. ABSENT: diastolic murmur, rubs, systolic murmur GI/Abdominal exam: PRESENT: normal bowel sounds, soft. ABSENT: distended, guarding, mass, organolmegaly, rebound, tenderness Results Laboratory Results: 01/01/19 08:57 01/01/19 05:18 12/31/18 12/31/18 12/31/18 11:15 15:05 15:11 WBC 15.7 H RBC 3.99 L Hgb 12.3 L D Hct 37.3 L MCV 94 MCH 30.7 MCHC 32.9 RDW 14.7 H Plt Count 264 Seg Neutrophils % 85.7 H Lymphocytes % 6.9 L Monocytes % 7.1 Eosinophils % 0.0 Basophils % 0.3 Absolute Neutrophils 13.4 H Absolute Lymphocytes 1.1 Absolute Monocytes 1.1 Absolute Eosinophils 0.0 Absolute Basophils 0.1 Carbonic Acid 0.84 L HCO3/H2CO3 Ratio 16:1 ABG pH 7.31 L ABG pCO2 27.8 L ABG pO2 201.9 H ABG HCO3 13.7 L ABG O2 Saturation 99.3 H ABG Base Excess -10.9 Carboxyhemoglobin FiO2 10 Sodium Potassium Chloride Carbon Dioxide Anion Gap BUN Creatinine Est GFR ( Amer) Est GFR (Non-Af Amer) Glucose Serum Osmolality Lactic Acid Calcium Total Bilirubin AST ALT Alkaline Phosphatase Ammonia Total Protein Albumin Urine Color YELLOW Urine Appearance SLIGHTLY HAZY Urine pH 6.0 Ur Specific [place] 1.020 Urine Protein 30 H Urine Glucose (UA) NEGATIVE Urine Ketones 100 H Urine Blood LARGE H Urine Nitrite NEGATIVE Ur Leukocyte Esterase NEGATIVE Urine WBC (Auto) Urine RBC (Auto) 12/31/18 12/31/18 12/31/18 15:11 19:06 19:06 WBC RBC Hgb Hct MCV MCH MCHC RDW Plt Count Seg Neutrophils % Lymphocytes % Monocytes % Eosinophils % Basophils % Absolute Neutrophils Absolute Lymphocytes Absolute Monocytes Absolute Eosinophils Absolute Basophils Carbonic Acid HCO3/H2CO3 Ratio ABG pH ABG pCO2 ABG pO2 ABG HCO3 ABG O2 Saturation ABG Base Excess Carboxyhemoglobin 1.4 FiO2 Sodium 149.3 H Potassium 5.3 H Chloride 117 H Carbon Dioxide 15 L Anion Gap 17 BUN 89 H Creatinine 4.01 H Est GFR ( Amer) 19 L Est GFR (Non-Af Amer) 16 L Glucose 92 Serum Osmolality Lactic Acid Calcium 8.3 L Total Bilirubin 0.8 AST 92 H ALT 50 Alkaline Phosphatase 112 Ammonia 15.7 Total Protein 6.1 L Albumin 3.5 Urine Color Urine Appearance Urine pH Ur Specific [place] Urine Protein Urine Glucose (UA) Urine Ketones Urine Blood Urine Nitrite Ur Leukocyte Esterase Urine WBC (Auto) Urine RBC (Auto) 12/31/18 12/31/18 12/31/18 19:06 20:57 23:15 WBC RBC Hgb Hct MCV MCH MCHC RDW Plt Count Seg Neutrophils % Lymphocytes % Monocytes % Eosinophils % Basophils % Absolute Neutrophils Absolute Lymphocytes Absolute Monocytes Absolute Eosinophils Absolute Basophils Carbonic Acid 1.63 H Cancelled HCO3/H2CO3 Ratio 11:1 Cancelled ABG pH 7.14 L* Cancelled ABG pCO2 54.2 H Cancelled ABG pO2 158.7 H Cancelled ABG HCO3 18.1 L Cancelled ABG O2 Saturation 98.4 H Cancelled ABG Base Excess -11.0 Cancelled Carboxyhemoglobin FiO2 60% Cancelled Sodium Potassium Chloride Carbon Dioxide Anion Gap BUN Creatinine Est GFR ( Amer) Est GFR (Non-Af Amer) Glucose Serum Osmolality 343 H Lactic Acid Calcium Total Bilirubin AST ALT Alkaline Phosphatase Ammonia Total Protein Albumin Urine Color Urine Appearance Urine pH Ur Specific [place] Urine Protein Urine Glucose (UA) Urine Ketones Urine Blood Urine Nitrite Ur Leukocyte Esterase Urine WBC (Auto) Urine RBC (Auto) 12/31/18 01/01/19 01/01/19 23:52 00:46 01:17 WBC RBC Hgb Hct MCV MCH MCHC RDW Plt Count Seg Neutrophils % Lymphocytes % Monocytes % Eosinophils % Basophils % Absolute Neutrophils Absolute Lymphocytes Absolute Monocytes Absolute Eosinophils Absolute Basophils Carbonic Acid 1.29 HCO3/H2CO3 Ratio 13:1 ABG pH 7.23 L ABG pCO2 42.7 ABG pO2 167.6 H ABG HCO3 17.6 L ABG O2 Saturation 98.8 H ABG Base Excess -9.5 Carboxyhemoglobin FiO2 50% Sodium Cancelled 147.9 H Potassium Cancelled 5.6 H Chloride Cancelled 119 H Carbon Dioxide Cancelled 18 L Anion Gap Cancelled 11 BUN Cancelled 92 H Creatinine Cancelled 2.64 H Est GFR ( Amer) Cancelled 31 L Est GFR (Non-Af Amer) Cancelled 25 L Glucose Cancelled 128 H Serum Osmolality Lactic Acid Calcium Cancelled 8.2 L Total Bilirubin AST ALT Alkaline Phosphatase Ammonia Total Protein Albumin Urine Color Urine Appearance Urine pH Ur Specific [place] Urine Protein Urine Glucose (UA) Urine Ketones Urine Blood Urine Nitrite Ur Leukocyte Esterase Urine WBC (Auto) Urine RBC (Auto) 01/01/19 01/01/19 01/01/19 05:18 05:18 06:20 WBC 13.5 H RBC 3.67 L Hgb 11.5 L Hct 34.7 L MCV 95 MCH 31.3 MCHC 33.0 RDW 15.1 H Plt Count 197 Seg Neutrophils % Not Reportable Lymphocytes % Not Reportable Monocytes % Not Reportable Eosinophils % Not Reportable Basophils % Not Reportable Absolute Neutrophils Not Reportable Absolute Lymphocytes Not Reportable Absolute Monocytes Not Reportable Absolute Eosinophils Not Reportable Absolute Basophils Not Reportable Carbonic Acid 1.04 L HCO3/H2CO3 Ratio 16:1 ABG pH 7.31 L ABG pCO2 34.4 L ABG pO2 95.5 ABG HCO3 17.0 L ABG O2 Saturation 96.8 ABG Base Excess -8.3 Carboxyhemoglobin FiO2 30% Sodium 146.8 H Potassium 5.2 H Chloride 119 H Carbon Dioxide 19 L Anion Gap 9 BUN 80 H Creatinine 2.10 H Est GFR ( Amer) 40 L Est GFR (Non-Af Amer) 33 L Glucose 130 H Serum Osmolality Lactic Acid Calcium 8.7 Total Bilirubin 0.6 AST 110 H ALT 63 Alkaline Phosphatase 98 Ammonia Total Protein 5.8 L Albumin 3.3 L Urine Color Urine Appearance Urine pH Ur Specific [place] Urine Protein Urine Glucose (UA) Urine Ketones Urine Blood Urine Nitrite Ur Leukocyte Esterase Urine WBC (Auto) Urine RBC (Auto) 01/01/19 01/01/19 01/01/19 08:57 09:58 10:00 WBC 11.8 H RBC 3.69 L Hgb 11.4 L Hct 34.8 L MCV 94 MCH 30.8 MCHC 32.7 RDW 15.0 H Plt Count 191 Seg Neutrophils % Not Reportable Lymphocytes % Not Reportable Monocytes % Not Reportable Eosinophils % Not Reportable Basophils % Not Reportable Absolute Neutrophils Not Reportable Absolute Lymphocytes Not Reportable Absolute Monocytes Not Reportable Absolute Eosinophils Not Reportable Absolute Basophils Not Reportable Carbonic Acid HCO3/H2CO3 Ratio ABG pH ABG pCO2 ABG pO2 ABG HCO3 ABG O2 Saturation ABG Base Excess Carboxyhemoglobin FiO2 Sodium Potassium Chloride Carbon Dioxide Anion Gap BUN Creatinine Est GFR ( Amer) Est GFR (Non-Af Amer) Glucose Serum Osmolality Lactic Acid 0.6 L Calcium Total Bilirubin AST ALT Alkaline Phosphatase Ammonia Total Protein Albumin Urine Color YELLOW Urine Appearance CLEAR Urine pH 6.0 Ur Specific [place] 1.016 Urine Protein NEGATIVE Urine Glucose (UA) NEGATIVE Urine Ketones 20 H Urine Blood LARGE H Urine Nitrite NEGATIVE Ur Leukocyte Esterase TRACE H Urine WBC (Auto) 2 Urine RBC (Auto) 3 12/31/18 12/31/18 01/01/19 08:45 08:45 05:18 Creatine Kinase 8363 H 6942 H CK-MB (CK-2) 18.40 H Troponin I < 0.012 Impressions: Abdomen/Pelvis CT 12/31/18 00:00 IMPRESSION: Right lower lobe pneumonia. No acute finding in the abdomen or pelvis. Osseous findings as described Guidance Fluoroscopy 12/31/18 00:00 IMPRESSION: Please see combined report for performance of procedure and radiologic supervision and interpretation. Head CT 12/31/18 09:02 IMPRESSION: NORMAL BRAIN CT WITHOUT CONTRAST. EVIDENCE OF ACUTE STROKE: NO. Lumbar Puncture 12/31/18 10:00 IMPRESSION: Lumbar puncture under fluoroscopy. No immediate complication. Head MRI 12/31/18 12:55 IMPRESSION: NORMAL MRI OF THE BRAIN WITHOUT INTRAVENOUS GADOLINIUM CONTRAST. EVIDENCE OF ACUTE STROKE: NO. Chest X-Ray 01/01/19 00:00 IMPRESSION: STABLE APPEARANCE OF THE CHEST. SUPPORT DEVICES UNCHANGED. Assessment and Plan - Diagnosis (1) Acute metabolic encephalopathy Is this a current diagnosis for this admission?: Yes Plan: Lipid failed 3 times. The order is in place. Patient is being empirically treated with vancomycin, ceftriaxone, dexamethasone and acyclovir. (2) Leukocytosis Is this a current diagnosis for this admission?: Yes Plan: Trending down (3) Acute kidney injury Is this a current diagnosis for this admission?: Yes Plan: Has been improving (4) Hypernatremia Is this a current diagnosis for this admission?: Yes Plan: Continue monitoring. (5) Rhabdomyolysis Qualifiers: Rhabdomyolysis type: non-traumatic Qualified Code(s): M62.82 - Rhabdomyolysis Is this a current diagnosis for this admission?: Yes Plan: It is mild and it will improve with hydration. (6) Alcohol abuse Is this a current diagnosis for this admission?: Yes Plan: We will counseled and encouraged patient to its alcohol.
[2019-01-01] MEDS: ACYCLOVIR SODIUM 500 MG in NORMAL SALINE 100 ML IV SCH ×2 (12:41→17:07)
--- NOTE | 2019-01-01 14:51 | RADIOLOGY REPORT (SQ) ---
EXAM DESCRIPTION: LUMBAR PUNCTURE; FLUORO/NEEDLE PLACEMENT/SPINE COMPLETED DATE/TIME: 01/01/2019 2:26 pm REASON FOR STUDY: Acute encephalopathy; ACUTE ENCEPHALOPATHY COMPARISON: None. FLUOROSCOPY TIME: 36 seconds 3 images saved to PACS. TECHNIQUE: Fluoroscopic guided lumbar puncture. LIMITATIONS: None. PROCEDURE: After written consent and assessment were obtained, the patient was brought into the fluo roscopy room and placed prone on the table. The patient's lower back was prepped in a sterile fashio n and an entry site was selected under live fluoroscopic guidance. The entry site was anesthetized wi th 1% lidocaine. A 22 gauge needle was advanced through the skin and into the thecal sac at the level of L4-L5. After approximately 7 ml was drained, the needle was removed and a sterile bandage was reid rocael of the site. Specimens were sent to the lab for testing. A fluoroscopic spot image was saved to PACS confirming level access. FINDINGS: Cloudy CSF. IMPRESSION: Lumbar puncture under fluoroscopy. No immediate complication. COMMENT: Patient medication list reviewed: Yes- Quality ID# [id number]:Eligible professional attests to doc umenting in the medical record they obtained, updated, or reviewed the patient's current medications. . Quality ID 145: Final reports for procedures using fluoroscopy that document radiation exposure marge siobhan, or exposure time and number of fluorographic images (if radiation exposure indices are not avail able) TECHNICAL DOCUMENTATION: JOB ID: [id number] [employer]- All Rights Reserved Reading location - IP/workstation name: [email or web address]
[2019-01-01 15:00] LABS: GLUCOSE,CSF 126 mg/dL (40-70)
[2019-01-01 15:19] LABS: COLOR TUBE 1 STRAW; COLOR TUBE 2 YELLOW; COLOR TUBE 3 YELLOW; COLOR TUBE 4 STRAW; CSF TUBE NUMBER 3
[2019-01-01 15:20] LABS: APPEARANCE TUBE 1 HAZY; APPEARANCE TUBE 2 SLIGHTLY HAZY; APPEARANCE TUBE 3 CLEAR; APPEARANCE TUBE 4 CLEAR; VOLUME TUBE 2 1.3 CC; VOLUME TUBE 3 1.8 CC
[2019-01-01 15:21] LABS: CSF TOTAL VOLUME 7.1 CC; RED BLOOD CELL,CSF 675 /uL (0-10); WHITE BLOOD CELL,CSF 12 /uL (0-5)
[2019-01-01 15:45] LABS: MONONUCLEAR CELLS CSF 68 %; POLYMORPHONUCLEAR CELLS CSF 32 %
[2019-01-01 15:58] LABS: PROTEIN,CSF 2125 mg/dL (12-60)
[2019-01-02] MEDS: MIDAZOLAM HCL 50 MG/100 ML RTUINJ IV PRN ×3 (01:35→23:15)
[2019-01-02] MEDS: ACYCLOVIR SODIUM 500 MG in NORMAL SALINE 100 ML IV SCH ×3 (01:39→17:29)
[2019-01-02] MEDS: PROPOFOL 1,000 MG/100 ML INFUS..BTL IV PRN ×5 (02:27→22:15)
[2019-01-02] MEDS: DEXAMETHASONE SOD PHOS INJ 10 MG/1 ML VIAL IV SCH ×4 (02:29→22:03)
[2019-01-02 04:23] LABS: ARTERIAL BLOOD BASE EXCESS -6.2 mmol/L; ARTERIAL BLOOD H2CO3 1.04 mmol/L (1.05-1.35); ARTERIAL BLOOD HCO3 18.7 mmol/L (20-24); ARTERIAL BLOOD O2 SATURATION 96.5 % (94-98); ARTERIAL BLOOD PCO2 34.4 mmHg (35-45); ARTERIAL BLOOD PH 7.35 (7.35-7.45); ARTERIAL BLOOD PO2 88.6 mmHg (80-100); ARTERIAL BLOOD TOTAL CO2 19.7 mmol/L (23-27)
[2019-01-02 04:26] LABS: ARTERIAL BLOOD FIO2 35%
[2019-01-02 04:59] LABS: HEMATOCRIT 34.9 % (37.9-51.0); HEMOGLOBIN 11.7 g/dL (13.5-17.0); MEAN CORPUSCULAR HEMOGLOBIN 31.5 pg (27.0-33.4); MEAN CORPUSCULAR HGB CONC 33.5 g/dL (32.0-36.0); MEAN CORPUSCULAR VOLUME 94 fl (80-97); PLATELET COUNT 182 10^3/uL (150-450); RED BLOOD COUNT 3.72 10^6/uL (4.35-5.55); RED CELL DISTRIBUTION WIDTH 14.4 % (11.5-14.0); WHITE BLOOD COUNT 9.6 10^3/uL (4.0-10.5)
[2019-01-02 05:03] LABS: ALANINE AMINOTRANSFERASE 64 U/L (21-72); ALKALINE PHOSPHATASE 87 U/L (38-126); ANION GAP 8 (5-19); ASPARTATE AMINO TRANSFERASE 79 U/L (17-59); BILIRUBIN,DIRECT 0.3 mg/dL (0.0-0.4); BILIRUBIN,TOTAL 0.4 mg/dL (0.2-1.3); BLOOD UREA NITROGEN 62 mg/dL (7-20); CARBON DIOXIDE 20 mmol/L (22-30); CHLORIDE 118 mmol/L (98-107); GLUCOSE 129 mg/dL (75-110); POTASSIUM 4.4 mmol/L (3.6-5.0); TOTAL PROTEIN 5.6 g/dL (6.3-8.2)
[2019-01-02 05:17] LABS: CREATINE KINASE 2143 U/L (55-170)
[2019-01-02 05:42] LABS: ABSOLUTE LYMPHOCYTES# (MANUAL) 0.4 10^3/uL (0.5-4.7); ABSOLUTE MONOCYTES # (MANUAL) 0.2 10^3/uL (0.1-1.4); ANISOCYTOSIS SLIGHT; BASOPHILS % (MANUAL) 0 % (0-2); EOSINOPHILS % (MANUAL) 0 % (0-6); LYMPHOCYTES % (MANUAL) 4 % (13-45); MONOCYTES % (MANUAL) 2 % (3-13); PLATELET COMMENT ADEQUATE; SEGMENTED NEUTROPHILS % (MAN) 94 % (42-78); TOTAL CELLS COUNTED 100
[2019-01-02] MEDS: 1/2 NORMAL SALINE 1,000 ML IV PRN (06:30)
--- NOTE | 2019-01-02 07:37 | RADIOLOGY REPORT (SQ) ---
EXAM DESCRIPTION: XR CHEST 1 VIEW COMPLETED DATE/TME: 01/02/2019 06:00 CLINICAL HISTORY: 58 years Male, pna/resp failure COMPARISON: One day prior. NUMBER OF VIEWS/TECHNIQUE: 1/AP FINDINGS: Mild/moderate mixed interstitial and airspace opacity, small left basilar atelectasis or scar.Adequate appearing endotracheal tube. Adequate appearing enteric tube partially obscured. Normal cardiac silhouette size. No pneumothorax. Stable bony thorax. IMPRESSION: No significant change.
[2019-01-02] MEDS: INSULIN LISPRO 100 UNIT/ML 3 ML VIAL SUBCUT SCH ×5 (08:12→23:20)
[2019-01-02] MEDS: CEFTRIAXONE 2 GM/D5W RTU 2 GM/50 ML RTUPB IV SCH ×2 (09:31→22:04)
[2019-01-02] MEDS: HEPARIN SOD (PORCINE) 5,000 UNIT/ML 1 ML SYRINGE SUBCUT SCH ×2 (09:31→22:03)
[2019-01-02] MEDS: PANTOPRAZOLE SODIUM 40 MG VIAL IV SCH (09:31)
[2019-01-02] MEDS: VANCOMYCIN HCL 750 MG in DEXTROSE 5%-WATER 250 ML IV SCH ×2 (09:32→22:04)
--- NOTE | 2019-01-02 13:19 | PDOC PROGRESS REPORT ---
Subjective Progress Note for:: 01/02/19 Subjective:: Patient seen while lying in bed and intubated and on mechanical ventilation. Patient is hemodynamically stable. Yesterday he he had lumbar puncture and CSF analysis shows WBC of 12, protein 2125 and glucose of 126 it has questionable picture of septic meningitis. Patient has been on vancomycin, ceftriaxone, dexamethasone and acyclovir. Dr. Alessandro lopez has been consulted. I reviewed his labs and it shows remarkable improvement his white cell count was 23,000 now 9000 and his creatinine was 4 now it is 1.04. All these parameters shows positive progress. Reason For Visit: ACUTE ENCEPHALOPATHY,ACUTE RENAL FAILURE, Physical Exam Vital Signs: Temp Pulse Resp BP Pulse Ox 98.1 F 96 21 H 143/87 H 96 01/02/19 10:00 01/02/19 10:00 01/02/19 10:01 01/02/19 10:01 01/02/19 12:00 Intake & Output 01/01/19 01/02/19 01/03/19 06:59 06:59 06:59 Intake Total 5336 2183 710 Output Total 1795 2180 360 Balance 3541 3 350 Weight 90.1 kg 92.4 kg General appearance: PRESENT: no acute distress Eye exam: PRESENT: conjunctiva pink Mouth exam: PRESENT: moist, tongue midline Respiratory exam: PRESENT: clear to auscultation mandi. ABSENT: rales, rhonchi, wheezes Cardiovascular exam: PRESENT: RRR. ABSENT: diastolic murmur, rubs, systolic murmur Results Laboratory Results: 01/02/19 04:12 01/02/19 04:12 01/01/19 01/01/19 01/02/19 14:07 14:07 04:04 WBC RBC Hgb Hct MCV MCH MCHC RDW Plt Count Seg Neutrophils % Lymphocytes % Monocytes % Eosinophils % Basophils % Absolute Neutrophils Absolute Lymphocytes Absolute Monocytes Absolute Eosinophils Absolute Basophils Carbonic Acid 1.04 L HCO3/H2CO3 Ratio 17:1 ABG pH 7.35 ABG pCO2 34.4 L ABG pO2 88.6 ABG HCO3 18.7 L ABG O2 Saturation 96.5 ABG Base Excess -6.2 FiO2 35% Sodium Potassium Chloride Carbon Dioxide Anion Gap BUN Creatinine Est GFR ( Amer) Est GFR (Non-Af Amer) Glucose Calcium Phosphorus Magnesium Total Bilirubin AST ALT Alkaline Phosphatase Total Protein Albumin Fluid Tube Number 3 CSF Volume 7.1 CSF WBC 12 H CSF RBC 675 CSF Color (1) STRAW CSF Appearance (1) HAZY CSF Color (2) YELLOW CSF Appearance (2) SLIGHTLY HAZY CSF Color (3) YELLOW CSF Appearance (3) CLEAR CSF Color (4) STRAW CSF Appearance (4) CLEAR CSF Polymorphonuclear 32 CSF Glucose 126 H CSF Total Protein 2125 H 01/02/19 01/02/19 04:12 04:12 WBC 9.6 RBC 3.72 L Hgb 11.7 L Hct 34.9 L MCV 94 MCH 31.5 MCHC 33.5 RDW 14.4 H Plt Count 182 Seg Neutrophils % Not Reportable Lymphocytes % Not Reportable Monocytes % Not Reportable Eosinophils % Not Reportable Basophils % Not Reportable Absolute Neutrophils Not Reportable Absolute Lymphocytes Not Reportable Absolute Monocytes Not Reportable Absolute Eosinophils Not Reportable Absolute Basophils Not Reportable Carbonic Acid HCO3/H2CO3 Ratio ABG pH ABG pCO2 ABG pO2 ABG HCO3 ABG O2 Saturation ABG Base Excess FiO2 Sodium 146.0 H Potassium 4.4 Chloride 118 H Carbon Dioxide 20 L Anion Gap 8 BUN 62 H Creatinine 1.04 Est GFR ( Amer) > 60 Est GFR (Non-Af Amer) > 60 Glucose 129 H Calcium 9.0 Phosphorus 4.0 Magnesium 2.8 H Total Bilirubin 0.4 AST 79 H ALT 64 Alkaline Phosphatase 87 Total Protein 5.6 L Albumin 3.0 L Fluid Tube Number CSF Volume CSF WBC CSF RBC CSF Color (1) CSF Appearance (1) CSF Color (2) CSF Appearance (2) CSF Color (3) CSF Appearance (3) CSF Color (4) CSF Appearance (4) CSF Polymorphonuclear CSF Glucose CSF Total Protein 12/31/18 12/31/18 01/01/19 08:45 08:45 05:18 Creatine Kinase 8363 H 6942 H CK-MB (CK-2) 18.40 H Troponin I < 0.012 01/02/19 04:12 Creatine Kinase 2143 H CK-MB (CK-2) Troponin I Impressions: Abdomen/Pelvis CT 12/31/18 00:00 IMPRESSION: Right lower lobe pneumonia. No acute finding in the abdomen or pelvis. Osseous findings as described Head CT 12/31/18 09:02 IMPRESSION: NORMAL BRAIN CT WITHOUT CONTRAST. EVIDENCE OF ACUTE STROKE: NO. Head MRI 12/31/18 12:55 IMPRESSION: NORMAL MRI OF THE BRAIN WITHOUT INTRAVENOUS GADOLINIUM CONTRAST. EVIDENCE OF ACUTE STROKE: NO. Guidance Fluoroscopy 01/01/19 00:00 IMPRESSION: Lumbar puncture under fluoroscopy. No immediate complication. Lumbar Puncture 01/01/19 00:00 IMPRESSION: Lumbar puncture under fluoroscopy. No immediate complication. Chest X-Ray 01/02/19 06:00 IMPRESSION: No significant change. Assessment and Plan - Diagnosis (1) Acute metabolic encephalopathy Is this a current diagnosis for this admission?: Yes Plan: Patient still remains intubated. (2) Leukocytosis Is this a current diagnosis for this admission?: Yes Plan: Has resolved (3) Acute kidney injury Is this a current diagnosis for this admission?: Yes Plan: Has been resolving (4) Hypernatremia Is this a current diagnosis for this admission?: Yes Plan: Improved (5) Rhabdomyolysis Qualifiers: Rhabdomyolysis type: non-traumatic Qualified Code(s): M62.82 - Rhabdomyolysis Is this a current diagnosis for this admission?: Yes Plan: Improving (6) Alcohol abuse Is this a current diagnosis for this admission?: Yes Plan: We will counseled and encouraged patient to its alcohol.
--- NOTE | 2019-01-02 17:51 | Progress Note ---
Provider Note Provider Note: ID Consult Note Asked to review patient's chart by Dr Padilla. Pt not seen or examined. Mr. Arriaga is a 58 year old man who was PMH of obesity, COPD, HTN, and chronic alcohol abuse who was brought in due to acute confusion. He was found on the floor minimally responsive and became agitated when transported by EMS. In the ED on 12/31, the history was obtained that the patient was found wrapped in a shower curtain and chewing on his hand. Last alcohol intake unknown. Pt also reportedly also engages in some amphetamine use and other unknown recreational drugs. In the ED he became combative. He was noted to have tachycardia, temperature of 100.3-100.5 F, minor skin avulsions on his right hand worse than the left. He was able to move all extremities spontaneously. His pupils were described as equal. Oral mucosa was dry. Mild acute facial droop was noted. Initial labs included serum sodium 150, creatinine 4.9, bicarb 18, WBC 23. CPK was elevated. He required sedation and intubation. His CSF had 12 WBCs, a remarkably high protein 2125, normal glucose 126, and 675 RBCs. UDS and alcohol levels were unremarkable. His initial peripheral leukocytosis has improved, as has his serum creatinine. CT abdomen/pelvis was read as showing RLL consolidation, which was not seen on subsequent CXR, although a RUL airspace opacity was noted instead. MRI of the brain without contrast did not show any abnormalities. He has had no fever since admission. Impression/Recommendations This is a challenging case of a patient with acute encephalopathy and a markedly abnormal CSF protein but otherwise a CSF formula that is not particularly suggestive of an infectious etiology with no hypoglychorrhachia and only minimally abnormal CSF WBC count. Fungal and mycobacterial causes of meningitis would be expected to present as a chronic meningitis or to have subacute presentation, evolving over weeks, not acute. Bacterial meningitis would be expected to result in more profound changes with regard to CSF glucose and WBC count. Even a viral process would typically have more of an elevation in CSF WBC count. Rocephin, vancomycin and dexamethasone were started empirically, but with the above information now available regarding the CSF formula, the patient does not appear to have a bacterial meningitis. CSF Gram stain shows no organisms. Thus far CSF bacterial culture has been negative. Blood cultures are negative. He should not need Rocephin, vancomycin and dexamethasone for this indication. Typically with encephalitis WBC count would be higher, but it is reasonable to continue IV acyclovir pending result of CSF HSV PCR. Acyclovir needs to be dose adjusted based on renal function and, if he has recovered renal function, full dose of 10 mg/kg q8h IV may be appropriate. Other considerations - Even though he is and presumably at less risk for HIV, screening all adults at some point is recommended. Alessandro Ely MD [facility] Infectious Diseases pager [phone]
[2019-01-02 22:35] LABS: VANCOMYCIN,TROUGH 14.5 ug/mL (5.0-20.0)
[2019-01-03] MEDS: ACYCLOVIR SODIUM 500 MG in NORMAL SALINE 100 ML IV SCH ×3 (01:15→18:04)
[2019-01-03] MEDS: PROPOFOL 1,000 MG/100 ML INFUS..BTL IV PRN ×5 (02:41→19:50)
[2019-01-03] MEDS: DEXAMETHASONE SOD PHOS INJ 10 MG/1 ML VIAL IV SCH ×3 (02:43→22:03)
[2019-01-03 04:14] LABS: ABSOLUTE LYMPHOCYTES (AUTO) 0.4 10^3/uL (0.5-4.7); ABSOLUTE MONOCYTES (AUTO) 0.3 10^3/uL (0.1-1.4); ABSOLUTE NEUT (AUTO) 7.1 10^3/uL (1.7-8.2); BASOPHILS % (AUTO) 0.1 % (0-2); HEMATOCRIT 33.9 % (37.9-51.0); HEMOGLOBIN 11.3 g/dL (13.5-17.0); LYMPHOCYTES % (AUTO) 5.1 % (13-45); MEAN CORPUSCULAR HGB CONC 33.3 g/dL (32.0-36.0); MEAN CORPUSCULAR VOLUME 93 fl (80-97); MONOCYTES % (AUTO) 4.3 % (3-13); PLATELET COUNT 209 10^3/uL (150-450); RED BLOOD COUNT 3.64 10^6/uL (4.35-5.55); RED CELL DISTRIBUTION WIDTH 14.5 % (11.5-14.0); SEGMENTED NEUTROPHILS % (AUTO) 90.5 % (42-78); TOTAL CELLS COUNTED % (AUTO) 100 %; WHITE BLOOD COUNT 7.8 10^3/uL (4.0-10.5)
[2019-01-03 04:27] LABS: ALANINE AMINOTRANSFERASE 57 U/L (21-72); ALBUMIN 2.9 g/dL (3.5-5.0); ALKALINE PHOSPHATASE 76 U/L (38-126); ANION GAP 6 (5-19); ASPARTATE AMINO TRANSFERASE 36 U/L (17-59); BILIRUBIN,DIRECT 0.3 mg/dL (0.0-0.4); BILIRUBIN,TOTAL 0.4 mg/dL (0.2-1.3); BLOOD UREA NITROGEN 55 mg/dL (7-20); CALCIUM 8.8 mg/dL (8.4-10.2); CARBON DIOXIDE 22 mmol/L (22-30); CHLORIDE 117 mmol/L (98-107); GLUCOSE 124 mg/dL (75-110); PHOSPHORUS 3.6 mg/dL (2.5-4.5); POTASSIUM 4.8 mmol/L (3.6-5.0); SODIUM 145.2 mmol/L (137-145); TOTAL PROTEIN 5.3 g/dL (6.3-8.2)
[2019-01-03 04:57] LABS: ARTERIAL BLOOD BASE EXCESS -1.1 mmol/L; ARTERIAL BLOOD FIO2 35%; ARTERIAL BLOOD H2CO3 1.11 mmol/L (1.05-1.35); ARTERIAL BLOOD HCO3 23.2 mmol/L (20-24); ARTERIAL BLOOD O2 SATURATION 96.7 % (94-98); ARTERIAL BLOOD PH 7.42 (7.35-7.45); ARTERIAL BLOOD PO2 85.7 mmHg (80-100); ARTERIAL BLOOD TOTAL CO2 24.3 mmol/L (23-27)
[2019-01-03] MEDS: INSULIN LISPRO 100 UNIT/ML 3 ML VIAL SUBCUT SCH ×3 (05:13→18:04)
[2019-01-03] MEDS: 1/2 NORMAL SALINE 1,000 ML IV PRN ×2 (05:23→22:04)
--- NOTE | 2019-01-03 07:10 | RADIOLOGY REPORT (SQ) ---
EXAM DESCRIPTION: XR CHEST 1 VIEW COMPLETED DATE/TME: 01/03/2019 06:00 CLINICAL HISTORY: 58 years Male, pna COMPARISON: One day prior. NUMBER OF VIEWS/TECHNIQUE: 1/AP FINDINGS: Tip of an endotracheal tube is 1.4 cm from the noel; consider 3.6 cm retraction. Adequate appearing enteric tube.Mild interstitial markings. Small patchy opacity of the lateral right upper lung. Normal cardiac silhouette size. No pneumothorax. Stable bony thorax. IMPRESSION: No significant change.
[2019-01-03 07:39] LABS: HSV I DNA Negative (Negative)
[2019-01-03] MEDS: PANTOPRAZOLE SODIUM 40 MG VIAL IV SCH (09:42)
[2019-01-03] MEDS: HEPARIN SOD (PORCINE) 5,000 UNIT/ML 1 ML SYRINGE SUBCUT SCH ×2 (09:42→22:04)
--- NOTE | 2019-01-03 12:30 | PDOC PROGRESS REPORT ---
Subjective Progress Note for:: 01/03/19 Subjective:: Patient remains intubated. His vital signs are stable. His white cell swelling his kidney function completely normalized. Is on weaning trial for possible extubation. The input of Dr. Alessandro lopez appreciated and I discontinue ceftriaxone and vancomycin per her recommendation. And continue with acyclovir. Reason For Visit: ACUTE ENCEPHALOPATHY,ACUTE RENAL FAILURE, Physical Exam Vital Signs: Temp Pulse Resp BP Pulse Ox 98.4 F 64 18 113/72 95 01/03/19 11:59 01/03/19 11:59 01/03/19 11:59 01/03/19 11:59 01/03/19 11:59 Intake & Output 01/02/19 01/03/19 01/04/19 06:59 06:59 06:59 Intake Total 2183 2557 289 Output Total 2180 1795 490 Balance 3 762 -201 Weight 92.4 kg 94.4 kg General appearance: PRESENT: no acute distress Respiratory exam: PRESENT: crackles, decreased breath sounds Cardiovascular exam: PRESENT: RRR. ABSENT: diastolic murmur, rubs, systolic murmur GI/Abdominal exam: PRESENT: normal bowel sounds, soft. ABSENT: distended, guarding, mass, organolmegaly, rebound, tenderness Results Laboratory Results: 01/03/19 03:37 01/03/19 03:37 01/02/19 01/03/19 01/03/19 21:40 03:37 03:37 WBC 7.8 RBC 3.64 L Hgb 11.3 L Hct 33.9 L MCV 93 MCH 31.0 MCHC 33.3 RDW 14.5 H Plt Count 209 Seg Neutrophils % 90.5 H Lymphocytes % 5.1 L Monocytes % 4.3 Eosinophils % 0.0 Basophils % 0.1 Absolute Neutrophils 7.1 Absolute Lymphocytes 0.4 L Absolute Monocytes 0.3 Absolute Eosinophils 0.0 Absolute Basophils 0.0 Carbonic Acid HCO3/H2CO3 Ratio ABG pH ABG pCO2 ABG pO2 ABG HCO3 ABG O2 Saturation ABG Base Excess FiO2 Sodium 145.2 H Potassium 4.8 Chloride 117 H Carbon Dioxide 22 Anion Gap 6 BUN 55 H Creatinine 0.93 1.00 Est GFR ( Amer) > 60 > 60 Est GFR (Non-Af Amer) > 60 > 60 Glucose 124 H Calcium 8.8 Phosphorus 3.6 Magnesium 2.7 H Total Bilirubin 0.4 AST 36 ALT 57 Alkaline Phosphatase 76 Total Protein 5.3 L Albumin 2.9 L Triglycerides 01/03/19 01/03/19 03:37 04:43 WBC RBC Hgb Hct MCV MCH MCHC RDW Plt Count Seg Neutrophils % Lymphocytes % Monocytes % Eosinophils % Basophils % Absolute Neutrophils Absolute Lymphocytes Absolute Monocytes Absolute Eosinophils Absolute Basophils Carbonic Acid 1.11 HCO3/H2CO3 Ratio 20:1 ABG pH 7.42 ABG pCO2 37.0 ABG pO2 85.7 ABG HCO3 23.2 ABG O2 Saturation 96.7 ABG Base Excess -1.1 FiO2 35% Sodium Potassium Chloride Carbon Dioxide Anion Gap BUN Creatinine Est GFR ( Amer) Est GFR (Non-Af Amer) Glucose Calcium Phosphorus Magnesium Total Bilirubin AST ALT Alkaline Phosphatase Total Protein Albumin Triglycerides 248 H 12/31/18 12/31/18 01/01/19 08:45 08:45 05:18 Creatine Kinase 8363 H 6942 H CK-MB (CK-2) 18.40 H Troponin I < 0.012 01/02/19 04:12 Creatine Kinase 2143 H CK-MB (CK-2) Troponin I Impressions: Abdomen/Pelvis CT 12/31/18 00:00 IMPRESSION: Right lower lobe pneumonia. No acute finding in the abdomen or pelvis. Osseous findings as described Head CT 12/31/18 09:02 IMPRESSION: NORMAL BRAIN CT WITHOUT CONTRAST. EVIDENCE OF ACUTE STROKE: NO. Head MRI 12/31/18 12:55 IMPRESSION: NORMAL MRI OF THE BRAIN WITHOUT INTRAVENOUS GADOLINIUM CONTRAST. EVIDENCE OF ACUTE STROKE: NO. Guidance Fluoroscopy 01/01/19 00:00 IMPRESSION: Lumbar puncture under fluoroscopy. No immediate complication. Lumbar Puncture 01/01/19 00:00 IMPRESSION: Lumbar puncture under fluoroscopy. No immediate complication. Chest X-Ray 01/03/19 06:00 IMPRESSION: No significant change. Assessment and Plan - Diagnosis (1) Acute metabolic encephalopathy Is this a current diagnosis for this admission?: Yes Plan: Patient still remains intubated. (2) Leukocytosis Is this a current diagnosis for this admission?: Yes Plan: Resolved (3) Acute kidney injury Is this a current diagnosis for this admission?: Yes Plan: Resolved (4) Hypernatremia Is this a current diagnosis for this admission?: Yes (5) Rhabdomyolysis Qualifiers: Rhabdomyolysis type: non-traumatic Qualified Code(s): M62.82 - Rhabdo myolysis Is this a current diagnosis for this admission?: Yes Plan: Improving (6) Alcohol abuse Is this a current diagnosis for this admission?: Yes Plan: We will counseled and encouraged patient to its alcohol.
[2019-01-03] MEDS: MIDAZOLAM HCL 50 MG/100 ML RTUINJ IV PRN (15:20)
[2019-01-03] MEDS ORDERED: IPRATROPIUM/ALBUTEROL 0.5-2.5 MG/3 ML AMPUL NEB PRN (15:50)
[2019-01-03 17:35] LABS: HSV II DNA Negative (Negative)
[2019-01-03] MEDS: FENTANYL CITRATE INJ/PF 100 MCG/2 ML AMPUL IV PRN (22:03)
[2019-01-04] MEDS: PROPOFOL 1,000 MG/100 ML INFUS..BTL IV PRN ×7 (00:11→23:03)
[2019-01-04] MEDS: MIDAZOLAM HCL 50 MG/100 ML RTUINJ IV PRN ×2 (00:13→13:00)
[2019-01-04] MEDS: ACYCLOVIR SODIUM 500 MG in NORMAL SALINE 100 ML IV SCH ×3 (01:49→17:14)
[2019-01-04] MEDS: INSULIN LISPRO 100 UNIT/ML 3 ML VIAL SUBCUT SCH ×4 (01:49→17:11)
[2019-01-04] MEDS: FENTANYL CITRATE INJ/PF 100 MCG/2 ML AMPUL IV PRN (03:41)
[2019-01-04 03:45] LABS: ARTERIAL BLOOD H2CO3 1.11 mmol/L (1.05-1.35); ARTERIAL BLOOD HCO3 22.3 mmol/L (20-24); ARTERIAL BLOOD O2 SATURATION 81.9 % (94-98); ARTERIAL BLOOD PCO2 36.9 mmHg (35-45); ARTERIAL BLOOD PO2 45.6 mmHg (80-100); ARTERIAL BLOOD TOTAL CO2 23.5 mmol/L (23-27)
[2019-01-04 03:46] LABS: ARTERIAL BLOOD FIO2 35%
[2019-01-04 03:52] LABS: ABSOLUTE EOSINOPHILS # (AUTO) 0.1 10^3/uL (0.0-0.6); ABSOLUTE LYMPHOCYTES (AUTO) 0.6 10^3/uL (0.5-4.7); ABSOLUTE MONOCYTES (AUTO) 0.6 10^3/uL (0.1-1.4); BASOPHILS % (AUTO) 0.2 % (0-2); EOSINOPHILS % (AUTO) 0.7 % (0-6); HEMATOCRIT 34.7 % (37.9-51.0); HEMOGLOBIN 11.6 g/dL (13.5-17.0); LYMPHOCYTES % (AUTO) 6.2 % (13-45); MEAN CORPUSCULAR HEMOGLOBIN 31.3 pg (27.0-33.4); MEAN CORPUSCULAR HGB CONC 33.4 g/dL (32.0-36.0); MEAN CORPUSCULAR VOLUME 94 fl (80-97); MONOCYTES % (AUTO) 6.2 % (3-13); PLATELET COUNT 197 10^3/uL (150-450); RED BLOOD COUNT 3.71 10^6/uL (4.35-5.55); RED CELL DISTRIBUTION WIDTH 14.1 % (11.5-14.0); SEGMENTED NEUTROPHILS % (AUTO) 86.7 % (42-78); TOTAL CELLS COUNTED % (AUTO) 100 %; WHITE BLOOD COUNT 9.2 10^3/uL (4.0-10.5)
[2019-01-04 04:11] LABS: ANION GAP 8 (5-19); BLOOD UREA NITROGEN 49 mg/dL (7-20); CALCIUM 8.3 mg/dL (8.4-10.2); CARBON DIOXIDE 23 mmol/L (22-30); CHLORIDE 112 mmol/L (98-107); GLUCOSE 111 mg/dL (75-110); POTASSIUM 4.6 mmol/L (3.6-5.0); SODIUM 142.5 mmol/L (137-145)
--- NOTE | 2019-01-04 07:05 | RADIOLOGY REPORT (SQ) ---
EXAM DESCRIPTION: XR CHEST 1 VIEW COMPLETED DATE/TME: 01/04/2019 06:00 CLINICAL HISTORY: 58 years Male, VENTED/ETT PLACEMENT COMPARISON: One day prior. NUMBER OF VIEWS/TECHNIQUE: 1/AP FINDINGS: Small left basilar atelectasis or scar. Adequate appearing endotracheal tube. Adequate appearing enteric tube partially obscured. Mild interstitial markings. Normal cardiac silhouette size. No pneumothorax. Stable bony thorax. IMPRESSION: No significant change.
[2019-01-04] MEDS: HEPARIN SOD (PORCINE) 5,000 UNIT/ML 1 ML SYRINGE SUBCUT SCH ×2 (09:54→22:28)
[2019-01-04] MEDS: DEXAMETHASONE SOD PHOS INJ 10 MG/1 ML VIAL IV SCH ×2 (09:55→22:22)
--- NOTE | 2019-01-04 10:58 | PDOC PROGRESS REPORT ---
Subjective Progress Note for:: 01/04/19 Subjective:: Patient remained intubated. Yesterday he failed weaning trial. His blood works are unremarkable. We do not know the patient how long he had been unconscious and face down when he was found by EMS. The possibility of anoxic brain damage considered and EEG requested for evaluation. Reason For Visit: ACUTE ENCEPHALOPATHY,ACUTE RENAL FAILURE, Physical Exam Vital Signs: Temp Pulse Resp BP Pulse Ox 98.1 F 56 L 16 111/70 98 01/04/19 10:00 01/04/19 10:00 01/04/19 10:00 01/04/19 10:00 01/04/19 10:00 Intake & Output 01/03/19 01/04/19 01/05/19 06:59 06:59 06:59 Intake Total 2557 2414 41 Output Total 1795 1915 250 Balance 762 499 -209 Weight 94.4 kg 93.6 kg General appearance: PRESENT: no acute distress Head exam: PRESENT: atraumatic Eye exam: PRESENT: conjunctiva pink Mouth exam: PRESENT: moist, tongue midline Respiratory exam: PRESENT: crackles, decreased breath sounds Cardiovascular exam: PRESENT: RRR. ABSENT: diastolic murmur, rubs, systolic murmur Results Laboratory Results: 01/04/19 03:35 01/04/19 03:35 01/04/19 01/04/19 01/04/19 03:30 03:35 03:35 WBC 9.2 RBC 3.71 L Hgb 11.6 L Hct 34.7 L MCV 94 MCH 31.3 MCHC 33.4 RDW 14.1 H Plt Count 197 Seg Neutrophils % 86.7 H Lymphocytes % 6.2 L Monocytes % 6.2 Eosinophils % 0.7 Basophils % 0.2 Absolute Neutrophils 8.0 Absolute Lymphocytes 0.6 Absolute Monocytes 0.6 Absolute Eosinophils 0.1 Absolute Basophils 0.0 Carbonic Acid 1.11 HCO3/H2CO3 Ratio 20:1 ABG pH 7.40 ABG pCO2 36.9 ABG pO2 45.6 L ABG HCO3 22.3 ABG O2 Saturation 81.9 L ABG Base Excess -2.0 FiO2 35% Sodium 142.5 Potassium 4.6 Chloride 112 H Carbon Dioxide 23 Anion Gap 8 BUN 49 H Creatinine 0.71 Est GFR ( Amer) > 60 Est GFR (Non-Af Amer) > 60 Glucose 111 H Calcium 8.3 L 12/31/18 12/31/18 01/01/19 08:45 08:45 05:18 Creatine Kinase 8363 H 6942 H CK-MB (CK-2) 18.40 H Troponin I < 0.012 01/02/19 04:12 Creatine Kinase 2143 H CK-MB (CK-2) Troponin I Impressions: Abdomen/Pelvis CT 12/31/18 00:00 IMPRESSION: Right lower lobe pneumonia. No acute finding in the abdomen or pelvis. Osseous findings as described Head CT 12/31/18 09:02 IMPRESSION: NORMAL BRAIN CT WITHOUT CONTRAST. EVIDENCE OF ACUTE STROKE: NO. Head MRI 12/31/18 12:55 IMPRESSION: NORMAL MRI OF THE BRAIN WITHOUT INTRAVENOUS GADOLINIUM CONTRAST. EVIDENCE OF ACUTE STROKE: NO. Guidance Fluoroscopy 01/01/19 00:00 IMPRESSION: Lumbar puncture under fluoroscopy. No immediate complication. Lumbar Puncture 01/01/19 00:00 IMPRESSION: Lumbar puncture under fluoroscopy. No immediate complication. Chest X-Ray 01/04/19 06:00 IMPRESSION: No significant change. Assessment and Plan - Diagnosis (1) Acute metabolic encephalopathy Is this a current diagnosis for this admission?: Yes Plan: Patient still remained intubated. The possibility of anoxic brain damage considered and EEG requested. (2) Leukocytosis Is this a current diagnosis for this admission?: Yes Plan: Resolved (3) Acute kidney injury Is this a current diagnosis for this admission?: Yes Plan: Resolved (4) Hypernatremia Is this a current diagnosis for this admission?: Yes Plan: Improved (5) Rhabdomyolysis Qualifiers: Rhabdomyolysis type: non-traumatic Qualified Code(s): M62.82 - Rhabdomyolysis Is this a current diagnosis for this admission?: Yes Plan: Improving (6) Alcohol abuse Is this a current diagnosis for this admission?: Yes Plan: We will counseled and encouraged patient to its alcohol.
[2019-01-04] MEDS: 1/2 NORMAL SALINE 1,000 ML IV PRN (14:32)
[2019-01-05] MEDS: MIDAZOLAM HCL 50 MG/100 ML RTUINJ IV PRN ×3 (00:09→22:36)
[2019-01-05] MEDS: INSULIN LISPRO 100 UNIT/ML 3 ML VIAL SUBCUT SCH ×5 (00:14→23:04)
[2019-01-05] MEDS: PROPOFOL 1,000 MG/100 ML INFUS..BTL IV PRN ×5 (02:43→19:59)
[2019-01-05] MEDS: ACYCLOVIR SODIUM 500 MG in NORMAL SALINE 100 ML IV SCH ×3 (02:43→17:52)
[2019-01-05 04:12] LABS: ARTERIAL BLOOD H2CO3 1.05 mmol/L (1.05-1.35); ARTERIAL BLOOD HCO3 22.8 mmol/L (20-24); ARTERIAL BLOOD O2 SATURATION 97.2 % (94-98); ARTERIAL BLOOD PH 7.43 (7.35-7.45); ARTERIAL BLOOD PO2 90.1 mmHg (80-100); ARTERIAL BLOOD TOTAL CO2 23.9 mmol/L (23-27)
[2019-01-05 04:15] LABS: HEMATOCRIT 32.5 % (37.9-51.0); HEMOGLOBIN 10.9 g/dL (13.5-17.0); MEAN CORPUSCULAR HEMOGLOBIN 31.4 pg (27.0-33.4); MEAN CORPUSCULAR HGB CONC 33.5 g/dL (32.0-36.0); MEAN CORPUSCULAR VOLUME 94 fl (80-97); PLATELET COUNT 176 10^3/uL (150-450); RED BLOOD COUNT 3.46 10^6/uL (4.35-5.55); RED CELL DISTRIBUTION WIDTH 14.4 % (11.5-14.0); WHITE BLOOD COUNT 7.2 10^3/uL (4.0-10.5)
[2019-01-05 04:18] LABS: ARTERIAL BLOOD FIO2 45%
[2019-01-05 04:31] LABS: ALANINE AMINOTRANSFERASE 105 U/L (21-72); ALBUMIN 2.5 g/dL (3.5-5.0); ALKALINE PHOSPHATASE 69 U/L (38-126); ANION GAP 5 (5-19); ASPARTATE AMINO TRANSFERASE 40 U/L (17-59); BILIRUBIN,DIRECT 0.3 mg/dL (0.0-0.4); BILIRUBIN,TOTAL 0.4 mg/dL (0.2-1.3); BLOOD UREA NITROGEN 35 mg/dL (7-20); CARBON DIOXIDE 24 mmol/L (22-30); CHLORIDE 113 mmol/L (98-107); GLUCOSE 104 mg/dL (75-110); PHOSPHORUS 4.2 mg/dL (2.5-4.5); POTASSIUM 4.4 mmol/L (3.6-5.0); SODIUM 142.3 mmol/L (137-145); TOTAL PROTEIN 4.7 g/dL (6.3-8.2)
[2019-01-05 04:32] LABS: ABSOLUTE LYMPHOCYTES# (MANUAL) 1.1 10^3/uL (0.5-4.7); ABSOLUTE MONOCYTES # (MANUAL) 0.5 10^3/uL (0.1-1.4); ABSOLUTE NEUTROPHILS# (MANUAL) 5.6 10^3/uL (1.7-8.2); BAND NEUTROPHILS % (MANUAL) 2 % (3-5); BASOPHILS % (MANUAL) 0 % (0-2); EOSINOPHILS % (MANUAL) 0 % (0-6); LYMPHOCYTES % (MANUAL) 15 % (13-45); MONOCYTES % (MANUAL) 7 % (3-13); SEGMENTED NEUTROPHILS % (MAN) 76 % (42-78); TOTAL CELLS COUNTED 100
[2019-01-05 04:33] LABS: PLATELET COMMENT ADEQUATE
[2019-01-05 04:34] LABS: ANISOCYTOSIS SLIGHT; TEAR DROP CELLS SLIGHT
[2019-01-05] MEDS ORDERED: SUCRALFATE 1 GM TABLET NG SCH (06:00)
[2019-01-05] MEDS: FENTANYL CITRATE INJ/PF 100 MCG/2 ML AMPUL IV PRN (06:34)
[2019-01-05] MEDS: 1/2 NORMAL SALINE 1,000 ML IV PRN ×2 (06:37→22:36)
--- NOTE | 2019-01-05 07:31 | RADIOLOGY REPORT (SQ) ---
EXAM DESCRIPTION: XR CHEST 1 VIEW COMPLETED DATE/TME: 01/05/2019 06:00 CLINICAL HISTORY: 58 years Male, resp failure COMPARISON: One day prior. NUMBER OF VIEWS/TECHNIQUE: 1/AP FINDINGS: Small left basilar opacity-effusion and mild interstitial markings. Interval worsening.Adequate appearing endotracheal tube. Adequate appearing enteric tube partially obscured. Mildly enlarged cardiac silhouette. No pneumothorax. Stable bony thorax. IMPRESSION: Small left basilar opacity-effusion and mild interstitial markings. Interval worsening.
[2019-01-05] MEDS: DEXAMETHASONE SOD PHOS INJ 10 MG/1 ML VIAL IV SCH ×2 (10:07→21:02)
[2019-01-05] MEDS: HEPARIN SOD (PORCINE) 5,000 UNIT/ML 1 ML SYRINGE SUBCUT SCH ×2 (10:07→21:01)
[2019-01-05] MEDS: SUCRALFATE 1 GM TABLET NG SCH ×3 (11:58→23:02)
--- NOTE | 2019-01-05 12:51 | PDOC PROGRESS REPORT ---
Subjective Progress Note for:: 01/05/19 Subjective:: This is a 58 years old male patient with past medical history of COPD, hypertension, alcohol and drug abuse brought with chief complaint of altered mental status. Patient was found on the floor minimally responsive and also noted to be confused. His initial blood work shows marked leukocytosis of 23,000 and markedly elevated creatinine of 4.93. Possibility of bacterial meningitis considered and the patient has been empirically started on ceftriaxone vancomycin and dexamethasone. 3 attempts to get lumbar puncture by interventional radiology failed. Finally, lumbar puncture done successfully and the CSF analysis shows WBC of 12, protein of 126 and protein of 2125. ID Dr. Alessandro lopez was consulted and after reviewing the CSF profile she recommended to stop his antibiotics and continues acyclovir since CSF analysis did not not match bacterial meningitis. At admission his white cell count was around 23,000 now it is normalized it and his creatinine was 4 now his creatinine is less than 1. About 2 weaning trials has been attempted and patient failed both. Patient is still unresponsive only responds to painful stimuli. EEG is requested for possible anoxic brain damage. Reason For Visit: ACUTE ENCEPHALOPATHY,ACUTE RENAL FAILURE, Physical Exam Vital Signs: Temp Pulse Resp BP Pulse Ox 99.9 F 80 17 126/64 H 94 01/04/19 18:00 01/05/19 08:19 01/05/19 10:41 01/05/19 10:41 01/05/19 10:41 Intake & Output 01/04/19 01/05/19 01/06/19 06:59 06:59 06:59 Intake Total 2414 3128 145 Output Total 4140 4115 685 Balance 499 733 -540 Weight 93.6 kg 93.3 kg General appearance: PRESENT: no acute distress Eye exam: PRESENT: conjunctiva pink Neck exam: ABSENT: carotid bruit, JVD, lymphadenopathy, thyromegaly Respiratory exam: PRESENT: clear to auscultation mandi. ABSENT: rales, rhonchi, wheezes Cardiovascular exam: PRESENT: RRR. ABSENT: diastolic murmur, rubs, systolic murmur Neurological exam: PRESENT: altered Results Laboratory Results: 01/05/19 03:33 01/05/19 03:33 01/05/19 01/05/19 01/05/19 03:33 03:33 04:00 WBC 7.2 RBC 3.46 L Hgb 10.9 L Hct 32.5 L MCV 94 MCH 31.4 MCHC 33.5 RDW 14.4 H Plt Count 176 Seg Neutrophils % Not Reportable Lymphocytes % Not Reportable Monocytes % Not Reportable Eosinophils % Not Reportable Basophils % Not Reportable Absolute Neutrophils Not Reportable Absolute Lymphocytes Not Reportable Absolute Monocytes Not Reportable Absolute Eosinophils Not Reportable Absolute Basophils Not Reportable Carbonic Acid 1.05 HCO3/H2CO3 Ratio 21:1 ABG pH 7.43 ABG pCO2 35.0 ABG pO2 90.1 ABG HCO3 22.8 ABG O2 Saturation 97.2 ABG Base Excess -1.0 FiO2 45% Sodium 142.3 Potassium 4.4 Chloride 113 H Carbon Dioxide 24 Anion Gap 5 BUN 35 H Creatinine 0.67 Est GFR ( Amer) > 60 Est GFR (Non-Af Amer) > 60 Glucose 104 Calcium 8.0 L Phosphorus 4.2 Magnesium 2.1 Total Bilirubin 0.4 AST 40 ALT 105 H Alkaline Phosphatase 69 Total Protein 4.7 L Albumin 2.5 L 12/31/18 10:20 Blood Blood Culture - Final NO GROWTH IN 5 DAYS 12/31/18 09:45 Blood Blood Culture - Final NO GROWTH IN 5 DAYS 01/01/19 14:07 Cerebral Spinal Fluid - Csf Gram Stain - Final 01/01/19 14:07 Cerebral Spinal Fluid - Csf CSF Culture - Final NO GROWTH 3 DAYS 12/31/18 12/31/18 01/01/19 08:45 08:45 05:18 Creatine Kinase 8363 H 6942 H CK-MB (CK-2) 18.40 H Troponin I < 0.012 01/02/19 04:12 Creatine Kinase 2143 H CK-MB (CK-2) Troponin I Impressions: Abdomen/Pelvis CT 12/31/18 00:00 IMPRESSION: Right lower lobe pneumonia. No acute finding in the abdomen or pelvis. Osseous findings as described Head CT 12/31/18 09:02 IMPRESSION: NORMAL BRAIN CT WITHOUT CONTRAST. EVIDENCE OF ACUTE STROKE: NO. Head MRI 12/31/18 12:55 IMPRESSION: NORMAL MRI OF THE BRAIN WITHOUT INTRAVENOUS GADOLINIUM CONTRAST. EVIDENCE OF ACUTE STROKE: NO. Guidance Fluoroscopy 01/01/19 00:00 IMPRESSION: Lumbar puncture under fluoroscopy. No immediate complication. Lumbar Puncture 01/01/19 00:00 IMPRESSION: Lumbar puncture under fluoroscopy. No immediate complication. Chest X-Ray 01/05/19 06:00 IMPRESSION: Small left basilar opacity-effusion and mild interstitial markings. Interval worsening. Assessment and Plan - Diagnosis (1) Probable septic meningitis Is this a current diagnosis for this admission?: Yes Plan: Continue acyclovir (2) Acute metabolic encephalopathy Is this a current diagnosis for this admission?: Yes Plan: Patient still remained intubated. The possibility of anoxic brain damage considered and EEG requested. (3) Leukocytosis Is this a current diagnosis for this admission?: Yes Plan: Resolved (4) Acute kidney injury Is this a current diagnosis for this admission?: Yes Plan: Resolved (5) Hypernatremia Is this a current diagnosis for this admission?: Yes Plan: Improved (6) Rhabdomyolysis Qualifiers: Rhabdomyolysis type: non-traumatic Qualified Code(s): M62.82 - Rhabdomyoly sis Is this a current diagnosis for this admission?: Yes Plan: Improving (7) Alcohol abuse Is this a current diagnosis for this admission?: Yes Plan: We will counseled and encouraged patient to its alcohol.
[2019-01-06] MEDS: PROPOFOL 1,000 MG/100 ML INFUS..BTL IV PRN ×5 (00:28→23:23)
[2019-01-06] MEDS: ACYCLOVIR SODIUM 500 MG in NORMAL SALINE 100 ML IV SCH ×3 (01:09→17:37)
[2019-01-06 03:31] LABS: ARTERIAL BLOOD BASE EXCESS -1.4 mmol/L; ARTERIAL BLOOD H2CO3 1.12 mmol/L (1.05-1.35); ARTERIAL BLOOD HCO3 22.9 mmol/L (20-24); ARTERIAL BLOOD PCO2 37.1 mmHg (35-45); ARTERIAL BLOOD PH 7.41 (7.35-7.45); ARTERIAL BLOOD PO2 107.1 mmHg (80-100)
[2019-01-06 03:36] LABS: ARTERIAL BLOOD FIO2 45%
[2019-01-06 04:24] LABS: HEMOGLOBIN 11.4 g/dL (13.5-17.0); MEAN CORPUSCULAR HGB CONC 33.7 g/dL (32.0-36.0)
[2019-01-06 04:29] LABS: MEAN CORPUSCULAR VOLUME 92 fl (80-97); PLATELET COUNT 185 10^3/uL (150-450); RED BLOOD COUNT 3.69 10^6/uL (4.35-5.55); RED CELL DISTRIBUTION WIDTH 13.9 % (11.5-14.0); WHITE BLOOD COUNT 8.5 10^3/uL (4.0-10.5)
[2019-01-06] MEDS: SUCRALFATE 1 GM TABLET NG SCH ×4 (04:59→23:23)
[2019-01-06 05:01] LABS: ANION GAP 5 (5-19); BLOOD UREA NITROGEN 28 mg/dL (7-20); CALCIUM 8.8 mg/dL (8.4-10.2); CARBON DIOXIDE 25 mmol/L (22-30); CHLORIDE 112 mmol/L (98-107); GLUCOSE 108 mg/dL (75-110); PHOSPHORUS 4.2 mg/dL (2.5-4.5); POTASSIUM 4.8 mmol/L (3.6-5.0)
[2019-01-06] MEDS: INSULIN LISPRO 100 UNIT/ML 3 ML VIAL SUBCUT SCH ×4 (05:01→23:24)
[2019-01-06 05:02] LABS: ABSOLUTE LYMPHOCYTES# (MANUAL) 0.6 10^3/uL (0.5-4.7); ABSOLUTE MONOCYTES # (MANUAL) 0.2 10^3/uL (0.1-1.4); ABSOLUTE NEUTROPHILS# (MANUAL) 7.7 10^3/uL (1.7-8.2); BASOPHILS % (MANUAL) 0 % (0-2); EOSINOPHILS % (MANUAL) 0 % (0-6); LYMPHOCYTES % (MANUAL) 7 % (13-45); MONOCYTES % (MANUAL) 2 % (3-13); SEGMENTED NEUTROPHILS % (MAN) 91 % (42-78); TOTAL CELLS COUNTED 100
[2019-01-06 05:03] LABS: PLATELET COMMENT ADEQUATE; RBC MORPHOLOGY COMMENT NORMO-CYTIC/CHROMIC
[2019-01-06] MEDS: FENTANYL CITRATE INJ/PF 100 MCG/2 ML AMPUL IV PRN ×3 (06:23→18:48)
[2019-01-06] MEDS ORDERED: METOPROLOL TARTRATE 100 MG TABLET PO ONE (08:15)
--- NOTE | 2019-01-06 08:23 | RADIOLOGY REPORT (SQ) ---
EXAM DESCRIPTION: CHEST SINGLE VIEW COMPLETED DATE/TIME: 01/06/2019 6:28 am REASON FOR STUDY: Respiratory failure/intubation/tube placement COMPARISON: 12/31/2018, 01/02/2019, 01/03/2019, 01/04/2019, 01/05/2019 EXAM PARAMETERS: NUMBER OF VIEWS: One view. TECHNIQUE: Single frontal radiographic view of the chest acquired. RADIATION DOSE: NA LIMITATIONS: None. FINDINGS: LUNGS AND PLEURA: Minimal bandlike atelectasis at the left lung base. Right lung clear. No gross pleural effusion or pneumothorax. MEDIASTINUM AND HILAR STRUCTURES: No masses. Contour normal. HEART AND VASCULAR STRUCTURES: No cardiomegaly BONES: No acute findings. HARDWARE: Endotracheal tube tip 5 cm above the noel. Nasogastric tube tip and side port in the sto mach. OTHER: No other significant finding. IMPRESSION: Minimal left basilar atelectasis TECHNICAL DOCUMENTATION: JOB ID: [id number] [employer]- All Rights Reserved Reading location - IP/workstation name: [email or web address]
[2019-01-06] MEDS: DEXAMETHASONE SOD PHOS INJ 10 MG/1 ML VIAL IV SCH ×2 (10:18→21:11)
[2019-01-06] MEDS: HEPARIN SOD (PORCINE) 5,000 UNIT/ML 1 ML SYRINGE SUBCUT SCH ×2 (10:18→21:11)
--- NOTE | 2019-01-06 13:10 | PDOC PROGRESS REPORT ---
Subjective Progress Note for:: 01/06/19 Subjective:: This is a 58 years old male patient with past medical history of COPD, hypertension, alcohol and drug abuse brought with chief complaint of altered mental status. Patient was found on the floor minimally responsive and also noted to be confused. His initial blood work shows marked leukocytosis of 23,000 and markedly elevated creatinine of 4.93. Possibility of bacterial meningitis considered and the patient has been empirically started on ceftriaxone vancomycin and dexamethasone. 3 attempts to get lumbar puncture by interventional radiology failed. Finally, lumbar puncture done successfully and the CSF analysis shows WBC of 12, protein of 126 and protein of 2125. ID Dr. Alessandro lopez was consulted and after reviewing the CSF profile she recommended to stop his antibiotics and continues acyclovir since CSF analysis did not not match bacterial meningitis. At admission his white cell count was around 23,000 now it is normalized it and his creatinine was 4 now his creatinine is less than 1. This morning patient seen and examined at bedside. He remained intubated. EEG was done to rule out anoxic brain damage and the results pending. Reason For Visit: ACUTE ENCEPHALOPATHY,ACUTE RENAL FAILURE, Physical Exam Vital Signs: Temp Pulse Resp BP Pulse Ox 98.4 F 90 19 146/91 H 96 01/06/19 08:00 01/06/19 10:00 01/06/19 10:00 01/06/19 10:00 01/06/19 10:00 Intake & Output 01/05/19 01/06/19 01/07/19 06:59 06:59 06:59 Intake Total 3128 2015 77 Output Total 2395 3275 1050 Balance 733 -1260 -973 Weight 93.3 kg 92.9 kg General appearance: PRESENT: no acute distress Head exam: PRESENT: atraumatic Eye exam: PRESENT: conjunctiva pink Neck exam: ABSENT: carotid bruit, JVD, lymphadenopathy, thyromegaly Respiratory exam: PRESENT: clear to auscultation mandi. ABSENT: rales, rhonchi, wheezes Cardiovascular exam: PRESENT: RRR. ABSENT: diastolic murmur, rubs, systolic murmur GI/Abdominal exam: PRESENT: normal bowel sounds, soft. ABSENT: distended, guarding, mass, organolmegaly, rebound, tenderness Results Laboratory Results: 01/06/19 04:07 01/06/19 04:07 01/06/19 01/06/19 01/06/19 03:15 04:07 04:07 WBC 8.5 RBC 3.69 L Hgb 11.4 L Hct 34.0 L MCV 92 MCH 31.0 MCHC 33.7 RDW 13.9 Plt Count 185 Seg Neutrophils % Not Reportable Lymphocytes % Not Reportable Monocytes % Not Reportable Eosinophils % Not Reportable Basophils % Not Reportable Absolute Neutrophils Not Reportable Absolute Lymphocytes Not Reportable Absolute Monocytes Not Reportable Absolute Eosinophils Not Reportable Absolute Basophils Not Reportable Carbonic Acid 1.12 HCO3/H2CO3 Ratio 20:1 ABG pH 7.41 ABG pCO2 37.1 ABG pO2 107.1 H ABG HCO3 22.9 ABG O2 Saturation 98.0 ABG Base Excess -1.4 FiO2 45% Sodium 142.0 Potassium 4.8 Chloride 112 H Carbon Dioxide 25 Anion Gap 5 BUN 28 H Creatinine 0.62 Est GFR ( Amer) > 60 Est GFR (Non-Af Amer) > 60 Glucose 108 Calcium 8.8 Phosphorus 4.2 Magnesium 2.0 01/01/19 14:07 Cerebral Spinal Fluid - Csf Gram Stain - Final 01/01/19 14:07 Cerebral Spinal Fluid - Csf CSF Culture - Final NO GROWTH 3 DAYS 12/31/18 10:20 Blood Blood Culture - Final NO GROWTH IN 5 DAYS 12/31/18 09:45 Blood Blood Culture - Final NO GROWTH IN 5 DAYS 12/31/18 12/31/18 01/01/19 08:45 08:45 05:18 Creatine Kinase 8363 H 6942 H CK-MB (CK-2) 18.40 H Troponin I < 0.012 01/02/19 04:12 Creatine Kinase 2143 H CK-MB (CK-2) Troponin I Impressions: Abdomen/Pelvis CT 12/31/18 00:00 IMPRESSION: Right lower lobe pneumonia. No acute finding in the abdomen or pelvis. Osseous findings as described Head CT 12/31/18 09:02 IMPRESSION: NORMAL BRAIN CT WITHOUT CONTRAST. EVIDENCE OF ACUTE STROKE: NO. Head MRI 12/31/18 12:55 IMPRESSION: NORMAL MRI OF THE BRAIN WITHOUT INTRAVENOUS GADOLINIUM CONTRAST. EVIDENCE OF ACUTE STROKE: NO. Guidance Fluoroscopy 01/01/19 00:00 IMPRESSION: Lumbar puncture under fluoroscopy. No immediate complication. Lumbar Puncture 01/01/19 00:00 IMPRESSION: Lumbar puncture under fluoroscopy. No immediate complication. Chest X-Ray 01/06/19 06:00 IMPRESSION: Minimal left basilar atelectasis Assessment and Plan - Diagnosis (1) Probable septic meningitis Is this a current diagnosis for this admission?: Yes Plan: Continue acyclovir (2) Acute metabolic encephalopathy Is this a current diagnosis for this admission?: Yes Plan: Patient still remained intubated. The possibility of anoxic brain damage considered and EEG requested. (3) Leukocytosis Is this a current diagnosis for this admission?: Yes Plan: Resolved (4) Acute kidney injury Is this a current diagnosis for this admission?: Yes Plan: Resolved (5) Hypernatremia Is this a current diagnosis for this admission?: Yes Plan: Improved (6) Rhabdomyolysis Qualifiers: Rhabdomyolysis type: non-traumatic Qualified Code(s): M62.82 - Rhabdomyolysis Is this a current diagnosis for this admission?: Yes Plan: Improving (7) Alcohol abuse Is this a current diagnosis for this admission?: Yes Plan: We will counseled and encouraged patient to its alcohol.
[2019-01-06] MEDS: 1/2 NORMAL SALINE 1,000 ML IV PRN (14:54)
[2019-01-06] MEDS ORDERED: HYDRALAZINE HCL INJ/PF 20 MG/1 ML SDV IV PRN (17:53)
[2019-01-06] MEDS ORDERED: HYDRALAZINE HCL INJ/PF 20 MG/1 ML SDV ONE (18:05)
[2019-01-06] MEDS: MIDAZOLAM HCL 50 MG/100 ML RTUINJ IV PRN (18:23)
[2019-01-06] MEDS: METOPROLOL TARTRATE 50 MG TABLET PO SCH (21:12)
[2019-01-07] MEDS: ACYCLOVIR SODIUM 500 MG in NORMAL SALINE 100 ML IV SCH ×3 (01:19→17:36)
[2019-01-07] MEDS: PROPOFOL 1,000 MG/100 ML INFUS..BTL IV PRN ×2 (02:22→05:41)
[2019-01-07 03:46] LABS: ARTERIAL BLOOD BASE EXCESS 1.7 mmol/L; ARTERIAL BLOOD H2CO3 1.17 mmol/L (1.05-1.35); ARTERIAL BLOOD HCO3 25.8 mmol/L (20-24); ARTERIAL BLOOD O2 SATURATION 97.4 % (94-98); ARTERIAL BLOOD PCO2 38.8 mmHg (35-45); ARTERIAL BLOOD PH 7.44 (7.35-7.45); ARTERIAL BLOOD PO2 94.1 mmHg (80-100)
[2019-01-07 03:48] LABS: ARTERIAL BLOOD FIO2 35%
[2019-01-07 04:32] LABS: HEMATOCRIT 35.3 % (37.9-51.0); HEMOGLOBIN 12.1 g/dL (13.5-17.0); MEAN CORPUSCULAR HEMOGLOBIN 31.7 pg (27.0-33.4); MEAN CORPUSCULAR HGB CONC 34.2 g/dL (32.0-36.0); MEAN CORPUSCULAR VOLUME 93 fl (80-97); PLATELET COUNT 201 10^3/uL (150-450); RED BLOOD COUNT 3.81 10^6/uL (4.35-5.55); RED CELL DISTRIBUTION WIDTH 13.9 % (11.5-14.0); WHITE BLOOD COUNT 10.3 10^3/uL (4.0-10.5)
[2019-01-07 04:50] LABS: ANION GAP 10 (5-19); BLOOD UREA NITROGEN 23 mg/dL (7-20); CALCIUM 8.5 mg/dL (8.4-10.2); CARBON DIOXIDE 22 mmol/L (22-30); CHLORIDE 109 mmol/L (98-107); GLUCOSE 95 mg/dL (75-110); POTASSIUM 4.3 mmol/L (3.6-5.0); SODIUM 140.8 mmol/L (137-145)
[2019-01-07 05:07] LABS: BASOPHILS % (AUTO) 0.2 % (0-2); EOSINOPHILS % (AUTO) 0.2 % (0-6); LYMPHOCYTES % (AUTO) 9.6 % (13-45); MONOCYTES % (AUTO) 5.3 % (3-13); SEGMENTED NEUTROPHILS % (AUTO) 84.7 % (42-78)
[2019-01-07 05:08] LABS: ABSOLUTE MONOCYTES (AUTO) 0.5 10^3/uL (0.1-1.4); ABSOLUTE NEUT (AUTO) 8.7 10^3/uL (1.7-8.2)
[2019-01-07 05:09] LABS: TOTAL CELLS COUNTED % (AUTO) 100 %
[2019-01-07] MEDS: SUCRALFATE 1 GM TABLET NG SCH ×3 (05:20→17:32)
[2019-01-07] MEDS: INSULIN LISPRO 100 UNIT/ML 3 ML VIAL SUBCUT SCH ×4 (05:21→23:42)
[2019-01-07] MEDS: 1/2 NORMAL SALINE 1,000 ML IV PRN ×2 (05:41→21:31)
[2019-01-07] MEDS: FENTANYL CITRATE INJ/PF 100 MCG/2 ML AMPUL IV PRN ×2 (07:20→13:00)
--- NOTE | 2019-01-07 08:17 | RADIOLOGY REPORT (SQ) ---
EXAM DESCRIPTION: CHEST SINGLE VIEW COMPLETED DATE/TIME: 01/07/2019 6:29 am REASON FOR STUDY: Respiratory failure/intubation/tube placement COMPARISON: 01/06/2019 EXAM PARAMETERS: NUMBER OF VIEWS: One view. TECHNIQUE: Single frontal radiographic view of the chest acquired. RADIATION DOSE: NA LIMITATIONS: None. FINDINGS: LUNGS AND PLEURA: No new airspace disease, pleural effusion or pneumothorax. MEDIASTINUM AND HILAR STRUCTURES: No masses. Contour normal. HEART AND VASCULAR STRUCTURES: Normal heart size. Aortic atherosclerosis. BONES: No acute findings. HARDWARE: Endotracheal tube tip overlies midthoracic trachea. Enteric tube tip overlies gastric body . OTHER: No other significant finding. IMPRESSION: Stable chest without evidence of new cardiopulmonary process. Stable support lines and tubes as above. TECHNICAL DOCUMENTATION: JOB ID: [id number] [employer]- All Rights Reserved Reading location - IP/workstation name: [email or web address]
[2019-01-07] MEDS: HEPARIN SOD (PORCINE) 5,000 UNIT/ML 1 ML SYRINGE SUBCUT SCH ×2 (10:44→21:31)
[2019-01-07] MEDS: METOPROLOL TARTRATE 50 MG TABLET PO SCH ×2 (10:44→21:31)
[2019-01-07] MEDS: DEXAMETHASONE SOD PHOS INJ 10 MG/1 ML VIAL IV SCH ×2 (10:44→21:31)
--- NOTE | 2019-01-07 12:03 | NEURO WORKBENCH EEG REPORT ---
EEG Report Patient: Raghav Arriaga ID: [id number] Referring Doctor: Oly Padilla DOS: 01/06/2019 Medications: duoneb, decadron, fentanyl, Haldol, porcine, insulin, Ativan, versed, diprivan, carafate History This is a 58 year old right handed man with a history of hypertension, COPD, asthma, GERD, gastric ulcer, depression, skin cancer removed from face who is on life support since 12/31/2018. He is sedated on 2mg Versed, 20mg diprivan during the study and has soft limb restraints. This EEG was requested for abnormal reflexes. EEG Interpretation This EEG was recorded in the awake state only. The awake EEG is characterized by a moderately well organized background with a moderately well developed and minimally reactive PDR of 7.5Hz to passive eye opening/closing. There was FIRDA (frontal intermittent rhythmic delta activity) occasionally noted. The remainder of the background consisted of a mix of mostly theta with alpha. Photic stimulation resulted in a moderate driving response. There were no epileptiform abnormalities. The EKG showed a regular rhythm. There was artifact throughout much of the study impairing interpretation. The patient was seen to spontaneously move during the study. No note of abnormal reflexes was made by the certified nuclear medicine technologist. EEG Classification Generalized background slowing, mild FIRDA EEG Impression This EEG is abnormal. The generalized background slowing and FIRDA are consistent with nonspecific diffuse cerebral dysfunction. Of note, the patient was sedated during the study. INTERPRETING NEUROLOGIST: Chelle Roque MD, [facility] Board Certified in Neurology, with special qualification in Child Neurology, and in Clinical Neurophysiology [facility]
--- NOTE | 2019-01-07 12:42 | PDOC PROGRESS REPORT ---
Subjective Progress Note for:: 01/07/19 Subjective:: The patient was extubated earlier this morning. He is somewhat groggy. He does attempt to answer questions by words and shaking his head. Reason For Visit: ACUTE ENCEPHALOPATHY,ACUTE RENAL FAILURE, Physical Exam Vital Signs: Temp Pulse Resp BP Pulse Ox 98.1 F 112 H 18 183/105 H 97 01/07/19 08:00 01/07/19 10:00 01/07/19 10:00 01/07/19 10:00 01/07/19 10:00 Intake & Output 01/06/19 01/07/19 01/08/19 06:59 06:59 06:59 Intake Total 2014 2867 101 Output Total 3279 4022 550 Balance -2900 -2558 -243 Weight 92.9 kg 89.1 kg General appearance: PRESENT: no acute distress, cooperative, well-developed Head exam: PRESENT: atraumatic, normocephalic Ear exam: PRESENT: normal external ear exam Mouth exam: PRESENT: moist, tongue midline Respiratory exam: PRESENT: clear to auscultation mandi, symmetrical, unlabored. ABSENT: accessory muscle use, rales, rhonchi, wheezes Cardiovascular exam: PRESENT: RRR, +S1, +S2, systolic murmur - 2/6 GI/Abdominal exam: PRESENT: normal bowel sounds, soft. ABSENT: distended, tenderness Rectal exam: PRESENT: deferred Gentrourinary exam: PRESENT: indwelling catheter Extremities exam: ABSENT: pedal edema Musculoskeletal exam: PRESENT: normal inspection Neurological exam: PRESENT: awake. ABSENT: alert - Still somewhat groggy. He was just extubated earlier this morning. Psychiatric exam: PRESENT: flat affect. ABSENT: agitated, anxious Skin exam: PRESENT: dry, warm. ABSENT: rash Results Laboratory Results: 01/07/19 06:00 01/07/19 04:01 01/07/19 01/07/19 01/07/19 03:38 04:01 06:00 WBC 10.3 RBC 3.81 L Hgb 12.1 L Hct 35.3 L MCV 93 MCH 31.7 MCHC 34.2 RDW 13.9 Plt Count 201 Seg Neutrophils % 84.7 H Lymphocytes % 9.6 L Monocytes % 5.3 Eosinophils % 0.2 Basophils % 0.2 Absolute Neutrophils 8.7 H Absolute Lymphocytes 1.0 Absolute Monocytes 0.5 Absolute Eosinophils 0.0 Absolute Basophils 0.0 Carbonic Acid 1.17 HCO3/H2CO3 Ratio 22:1 ABG pH 7.44 ABG pCO2 38.8 ABG pO2 94.1 ABG HCO3 25.8 H ABG O2 Saturation 97.4 ABG Base Excess 1.7 FiO2 35% Sodium 140.8 Potassium 4.3 Chloride 109 H Carbon Dioxide 22 Anion Gap 10 BUN 23 H Creatinine 0.50 L Est GFR ( Amer) > 60 Est GFR (Non-Af Amer) > 60 Glucose 95 Calcium 8.5 Magnesium 1.8 01/04/19 22:40 Hand - Human Bite Gram Stain - Final 01/04/19 22:40 Hand - Human Bite Wound Culture - Final 2+ SKIN KEISHA 01/01/19 14:07 Cerebral Spinal Fluid - Csf Gram Stain - Final 01/01/19 14:07 Cerebral Spinal Fluid - Csf CSF Culture - Final NO GROWTH 3 DAYS 12/31/18 12/31/18 01/01/19 08:45 08:45 05:18 Creatine Kinase 8363 H 6942 H CK-MB (CK-2) 18.40 H Troponin I < 0.012 01/02/19 04:12 Creatine Kinase 2143 H CK-MB (CK-2) Troponin I Impressions: Abdomen/Pelvis CT 12/31/18 00:00 IMPRESSION: Right lower lobe pneumonia. No acute finding in the abdomen or pelvis. Osseous findings as described Head CT 12/31/18 09:02 IMPRESSION: NORMAL BRAIN CT WITHOUT CONTRAST. EVIDENCE OF ACUTE STROKE: NO. Head MRI 12/31/18 12:55 IMPRESSION: NORMAL MRI OF THE BRAIN WITHOUT INTRAVENOUS GADOLINIUM CONTRAST. EVIDENCE OF ACUTE STROKE: NO. Guidance Fluoroscopy 01/01/19 00:00 IMPRESSION: Lumbar puncture under fluoroscopy. No immediate complication. Lumbar Puncture 01/01/19 00:00 IMPRESSION: Lumbar puncture under fluoroscopy. No immediate complication. Chest X-Ray 01/07/19 06:00 IMPRESSION: Stable chest without evidence of new cardiopulmonary process. Stable support lines and tubes as above. Assessment and Plan - Diagnosis (1) Probable septic meningitis Is this a current diagnosis for this admission?: Yes Plan: Continue acyclovir 01/07/2019-the patient continues on IV acyclovir. The spinal fluid had a negative culture and negative serology for herpes simplex virus. (2) Acute metabolic encephalopathy Is this a current diagnosis for this admission?: Yes Plan: Patient still remained intubated. The possibility of anoxic brain damage considered and EEG requested. 01/07/2019-the encephalopathy is most likely due to possible meningitis. There is also a history of alcohol use that can cause chronic changes but not the acute change noted prior to this admission. The patient did have an EEG that did show diffuse abnormality without any evidence of epilepsy. We will continue to assess as all of his sedation wears off. (3) Leukocytosis Is this a current diagnosis for this admission?: Yes Plan: The white cell count today is 10. The initial leukocytosis was from the suspected meningitis. Today's count is slightly higher than yesterday but still within the normal limits. Continue to monitor. (4) Acute kidney injury Is this a current diagnosis for this admission?: Yes Plan: 01/07/2019-the serum creatinine is in fact back to normal. BUN is minimally elevated at 23 and the GFR is now greater than 60. Acute kidney injury resolved. (5) Hypernatremia Is this a current diagnosis for this admission?: Yes Plan: Improved 01/07/2019-patient serum sodium is back to normal. (6) Rhabdomyolysis Qualifiers: Rhabdomyolysis type: traumatic Encounter type: initial encounter Qualified Code(s): T79.6XXA - Traumatic ischemia of muscle, initial encounter Is this a current diagnosis for this admission?: Yes Plan: IV fluids as mentioned. 01/07/2019-the patient's last creatinine kinase total was over 2000. I have ordered a repeat study for tomorrow morning. He has shown consistent improvem ent. (7) Alcohol abuse Is this a current diagnosis for this admission?: Yes Plan: We will counseled and encouraged patient to its alcohol. 01/07/2019-now the patient is extubated we will discontinue the propofol and Versed. He does have PRN medications available including lorazepam and Haldol. (8) On mechanically assisted ventilation Is this a current diagnosis for this admission?: Yes Plan: The patient has a history of chronic obstructive pulmonary disease however this is been asymptomatic. He is not requiring nebulizer treatments. He was intubated for airway protection due to his altered mental status. He was extubated earlier this morning. - Time Time Spent with patient: 35 or more minutes Medications reviewed and adjusted accordingly: Yes
[2019-01-07 16:02] LABS: ARTERIAL BLOOD BASE EXCESS 2.2 mmol/L; ARTERIAL BLOOD H2CO3 1.03 mmol/L (1.05-1.35); ARTERIAL BLOOD HCO3 25.2 mmol/L (20-24); ARTERIAL BLOOD O2 SATURATION 95.9 % (94-98); ARTERIAL BLOOD PCO2 34.3 mmHg (35-45); ARTERIAL BLOOD PH 7.48 (7.35-7.45); ARTERIAL BLOOD PO2 73.8 mmHg (80-100); ARTERIAL BLOOD TOTAL CO2 26.3 mmol/L (23-27)
[2019-01-07 16:03] LABS: ARTERIAL BLOOD FIO2 ROOM AIR
[2019-01-07] MEDS ORDERED: HYDRALAZINE HCL INJ/PF 20 MG/1 ML SDV IV PRN (22:31)
[2019-01-08] MEDS: ACYCLOVIR SODIUM 500 MG in NORMAL SALINE 100 ML IV SCH ×2 (02:27→12:04)
[2019-01-08] MEDS: 1/2 NORMAL SALINE 1,000 ML IV PRN ×2 (04:55→19:45)
[2019-01-08 05:23] LABS: HEMATOCRIT 38.3 % (37.9-51.0); HEMOGLOBIN 12.9 g/dL (13.5-17.0); MEAN CORPUSCULAR HEMOGLOBIN 30.9 pg (27.0-33.4); MEAN CORPUSCULAR HGB CONC 33.8 g/dL (32.0-36.0); MEAN CORPUSCULAR VOLUME 91 fl (80-97); PLATELET COUNT 242 10^3/uL (150-450); RED BLOOD COUNT 4.19 10^6/uL (4.35-5.55); RED CELL DISTRIBUTION WIDTH 13.6 % (11.5-14.0); WHITE BLOOD COUNT 11.2 10^3/uL (4.0-10.5)
[2019-01-08 05:35] LABS: ANION GAP 13 (5-19); BLOOD UREA NITROGEN 19 mg/dL (7-20); CALCIUM 9.1 mg/dL (8.4-10.2); CARBON DIOXIDE 21 mmol/L (22-30); CHLORIDE 108 mmol/L (98-107); CREATINE KINASE 108 U/L (55-170); GLUCOSE 83 mg/dL (75-110); POTASSIUM 4.1 mmol/L (3.6-5.0); SODIUM 141.9 mmol/L (137-145)
[2019-01-08 06:23] LABS: ABSOLUTE LYMPHOCYTES# (MANUAL) 0.8 10^3/uL (0.5-4.7); ABSOLUTE MONOCYTES # (MANUAL) 0.3 10^3/uL (0.1-1.4); BASOPHILS % (MANUAL) 0 % (0-2); EOSINOPHILS % (MANUAL) 1 % (0-6); LYMPHOCYTES % (MANUAL) 6 % (13-45); MONOCYTES % (MANUAL) 3 % (3-13); SEGMENTED NEUTROPHILS % (MAN) 89 % (42-78); TOTAL CELLS COUNTED 100
[2019-01-08 06:24] LABS: PLATELET COMMENT ADEQUATE; STOMATOCYTES SLIGHT
[2019-01-08] MEDS: INSULIN LISPRO 100 UNIT/ML 3 ML VIAL SUBCUT SCH ×3 (06:25→17:10)
[2019-01-08 06:29] LABS: ARTERIAL BLOOD BASE EXCESS 0.6 mmol/L; ARTERIAL BLOOD H2CO3 1.02 mmol/L (1.05-1.35); ARTERIAL BLOOD HCO3 23.7 mmol/L (20-24); ARTERIAL BLOOD O2 SATURATION 96.4 % (94-98); ARTERIAL BLOOD PCO2 33.8 mmHg (35-45); ARTERIAL BLOOD PH 7.46 (7.35-7.45); ARTERIAL BLOOD PO2 79.5 mmHg (80-100); ARTERIAL BLOOD TOTAL CO2 24.8 mmol/L (23-27)
[2019-01-08 06:31] LABS: ARTERIAL BLOOD FIO2 ROOM AIR
[2019-01-08] MEDS: SUCRALFATE 1 GM TABLET PO SCH ×4 (08:29→22:03)
--- NOTE | 2019-01-08 09:25 | RADIOLOGY REPORT (SQ) ---
EXAM DESCRIPTION: CHEST SINGLE VIEW COMPLETED DATE/TIME: 01/08/2019 8:40 am REASON FOR STUDY: Respiratory failure/intubation/tube placement COMPARISON: Chest films 01/07/2019, 01/06/2019, 01/05/2019, 12/31/2018 EXAM PARAMETERS: NUMBER OF VIEWS: One view. TECHNIQUE: Single frontal radiographic view of the chest acquired. RADIATION DOSE: NA LIMITATIONS: Low lung volumes FINDINGS: LUNGS AND PLEURA: No opacities, masses or pneumothorax. No pleural effusion. MEDIASTINUM AND HILAR STRUCTURES: No masses. Contour normal. HEART AND VASCULAR STRUCTURES: Heart normal in size. Normal vasculature. BONES: Old right lower lateral rib fractures HARDWARE: None in the chest. OTHER: No other significant finding. IMPRESSION: NO ACUTE RADIOGRAPHIC FINDING IN THE CHEST. TECHNICAL DOCUMENTATION: JOB ID: [id number] [employer]- All Rights Reserved Reading location - IP/workstation name: [email or web address]
[2019-01-08] MEDS: METOPROLOL TARTRATE 50 MG TABLET PO SCH ×2 (09:45→22:03)
[2019-01-08] MEDS: DEXAMETHASONE SOD PHOS INJ 10 MG/1 ML VIAL IV SCH (09:47)
[2019-01-08] MEDS: HEPARIN SOD (PORCINE) 5,000 UNIT/ML 1 ML SYRINGE SUBCUT SCH ×2 (09:48→22:03)
--- NOTE | 2019-01-08 14:58 | PDOC CONSULTATION ---
Consultation Consult Date: 01/01/19 Attending physician:: ALVARO KLEIN Provider Consulted: HORACIO SANDERS Consult reason:: Altered mental status History of Present Illness Admission Date/PCP: 12/31/18 12:35 DORETHA CAMPOS MD History of Present Illness: NASH MORAN is a 58 year old male was brought to the emergency room by his family for altered mental status he displayed confusion and lethargy and was found to be in liters ketamine to calm his agitation and anxiety he is also noted being acute renal failure and rhabdomyolysis. Per the chart he has a history of COPD and smoked up until the time of admission is also had a history of alcohol use but the specifics are not alleviated as the family contradicted their opinions of how much he consumes. Currently intubated and sedated in the ICU Past Medical History Cardiac Medical History: Reports: Hypertension Pulmonary Medical History: Reports: Asthma, Chronic Obstructive Pulmonary Disease (COPD) Malignancy Medical History: Reports: Skin Cancer - face GI Medical History: Reports: Gastroesophageal Reflux Disease Psychiatric Medical History: Reports: Depression Social History Information Source: [facility] Records Smoking Status: Current Every Day Smoker Cigarettes Packs Per Day: 1 Number of Years Smokin Frequency of Alcohol Use: Heavy Hx Recreational Drug Use: No Drugs: None Hx Prescription Drug Abuse: No - Advance Directive Resuscitation Status: Full Code Family History Parental Family History Reviewed: No Children Family History Reviewed: No Sibling(s) Family History Reviewed.: No Medication/Allergy Home Medications: Amlodipine Besylate/Benazepril [Amlodipine-Benazepril 10-40 mg] 1 cap PO DAILY 04/25/17 Clonazepam 0.5 mg PO DAILY 04/25/17 Budesonide/Formoterol Fumarate [Symbicort Hfa 160-4.5 Mcg Inhaler 6 gm] 1 puff IH Q12 12/31/18 Fluticasone/Vilanterol [Breo 200-25 Mcg Ellipta 14 Dose/Dpi] 1 inh IH Q12 12/31/18 Naproxen/Esomeprazole Mag [Vimovo Dr 500-20 mg Tablet] 1 each PO Q12 12/31/18 Sertraline HCl [Zoloft 50 mg Tablet] 150 mg PO DAILY 12/31/18 Tiotropium [place] [Spiriva Respimat] 1 puff IH BID 12/31/18 Trazodone HCl [Desyrel 50 mg Tablet] 100 mg PO QHS 12/31/18 Allergies/Adverse Reactions: No Known Allergies Allergy (Verified 04/14/18 14:23) Review of Systems ROS unobtainable: Due to endotracheal tube, Due to mental status Physical Exam Vital Signs: Temp Pulse Resp BP Pulse Ox 97.5 F 91 18 140/77 H 96 01/01/19 08:00 01/01/19 08:00 01/01/19 08:00 01/01/19 08:00 01/01/19 08:42 Intake & Output 12/31/18 01/01/19 01/02/19 06:59 06:59 06:59 Intake Total 5336 12 Output Total 1795 450 Balance 3541 -438 Weight 90.1 kg General appearance: PRESENT: no acute distress, disheveled, obese. ABSENT: cooperative Head exam: PRESENT: atraumatic, normocephalic Eye exam: PRESENT: conjunctiva pale. ABSENT: EOMI, nystagmus, periorbital swelling Mouth exam: PRESENT: dry mucosa, neck supple, tongue midline, other - ET tube Neck exam: ABSENT: carotid bruit, full ROM, JVD, lymphadenopathy, meningismus, tenderness, thyromegaly, tracheal deviation, tracheostomy, other Respiratory exam: PRESENT: decreased breath sounds, prolonged expiratory phas, rales, rhonchi, unlabored, wheezes. ABSENT: retraction, stridor Cardiovascular exam: PRESENT: irregular rhythm Pulses: PRESENT: normal radial pulses GI/Abdominal exam: PRESENT: diminished bowel sounds, soft. ABSENT: mass Gentrourinary exam: PRESENT: indwelling catheter Extremities exam: ABSENT: calf tenderness, clubbing, full ROM, joint swelling Musculoskeletal exam: ABSENT: ambulatory, deformity, dislocation Neurological exam: ABSENT: awake Skin exam: PRESENT: dry, warm Results Laboratory Results: 01/01/19 08:57 01/01/19 05:18 12/31/18 12/31/18 12/31/18 08:45 08:45 11:15 WBC 23.0 H RBC 4.77 Hgb 14.8 Hct 44.7 MCV 94 MCH 31.1 MCHC 33.2 RDW 14.9 H Plt Count 305 Seg Neutrophils % Not Reportable Lymphocytes % Not Reportable Monocytes % Not Reportable Eosinophils % Not Reportable Basophils % Not Reportable Absolute Neutrophils Not Reportable Absolute Lymphocytes Not Reportable Absolute Monocytes Not Reportable Absolute Eosinophils Not Reportable Absolute Basophils Not Reportable Carbonic Acid HCO3/H2CO3 Ratio ABG pH ABG pCO2 ABG pO2 ABG HCO3 ABG O2 Saturation ABG Base Excess Carboxyhemoglobin FiO2 Sodium 150.0 H Potassium 5.1 H Chloride 108 H Carbon Dioxide 18 L Anion Gap 24 H BUN 89 H Creatinine 4.93 H Est GFR ( Amer) 15 L Est GFR (Non-Af Amer) 12 L Glucose 73 L Serum Osmolality Calcium 9.4 Magnesium 2.9 H Total Bilirubin 1.5 H AST 97 H ALT 51 Alkaline Phosphatase 156 H Ammonia Total Protein 7.4 Albumin 4.8 Urine Color YELLOW Urine Appearance SLIGHTLY HAZY Urine pH 6.0 Ur Specific Kathryn 1.020 Urine Protein 30 H Urine Glucose (UA) NEGATIVE Urine Ketones 100 H Urine Blood LARGE H Urine Nitrite NEGATIVE Ur Leukocyte Esterase NEGATIVE 12/31/18 12/31/18 12/31/18 15:05 15:11 15:11 WBC 15.7 H RBC 3.99 L Hgb 12.3 L D Hct 37.3 L MCV 94 MCH 30.7 MCHC 32.9 RDW 14.7 H Plt Count 264 Seg Neutrophils % 85.7 H Lymphocytes % 6.9 L Monocytes % 7.1 Eosinophils % 0.0 Basophils % 0.3 Absolute Neutrophils 13.4 H Absolute Lymphocytes 1.1 Absolute Monocytes 1.1 Absolute Eosinophils 0.0 Absolute Basophils 0.1 Carbonic Acid 0.84 L HCO3/H2CO3 Ratio 16:1 ABG pH 7.31 L ABG pCO2 27.8 L ABG pO2 201.9 H ABG HCO3 13.7 L ABG O2 Saturation 99.3 H ABG Base Excess -10.9 Carboxyhemoglobin FiO2 10 Sodium 149.3 H Potassium 5.3 H Chloride 117 H Carbon Dioxide 15 L Anion Gap 17 BUN 89 H Creatinine 4.01 H Est GFR ( Amer) 19 L Est GFR (Non-Af Amer) 16 L Glucose 92 Serum Osmolality Calcium 8.3 L Magnesium Total Bilirubin 0.8 AST 92 H ALT 50 Alkaline Phosphatase 112 Ammonia Total Protein 6.1 L Albumin 3.5 Urine Color Urine Appearance Urine pH Ur Specific Kathryn Urine Protein Urine Glucose (UA) Urine Ketones Urine Blood Urine Nitrite Ur Leukocyte Esterase 12/31/18 12/31/18 12/31/18 19:06 19:06 19:06 WBC RBC Hgb Hct MCV MCH MCHC RDW Plt Count Seg Neutrophils % Lymphocytes % Monocytes % Eosinophils % Basophils % Absolute Neutrophils Absolute Lymphocytes Absolute Monocytes Absolute Eosinophils Absolute Basophils Carbonic Acid HCO3/H2CO3 Ratio ABG pH ABG pCO2 ABG pO2 ABG HCO3 ABG O2 Saturation ABG Base Excess Carboxyhemoglobin 1.4 FiO2 Sodium Potassium Chloride Carbon Dioxide Anion Gap BUN Creatinine Est GFR ( Amer) Est GFR (Non-Af Amer) Glucose Serum Osmolality 343 H Calcium Magnesium Total Bilirubin AST ALT Alkaline Phosphatase Ammonia 15.7 Total Protein Albumin Urine Color Urine Appearance Urine pH Ur Specific Kathryn Urine Protein Urine Glucose (UA) Urine Ketones Urine Blood Urine Nitrite Ur Leukocyte Esterase 12/31/18 12/31/18 12/31/18 20:57 23:15 23:52 WBC RBC Hgb Hct MCV MCH MCHC RDW Plt Count Seg Neutrophils % Lymphocytes % Monocytes % Eosinophils % Basophils % Absolute Neutrophils Absolute Lymphocytes Absolute Monocytes Absolute Eosinophils Absolute Basophils Carbonic Acid 1.63 H Cancelled 1.29 HCO3/H2CO3 Ratio 11:1 Cancelled 13:1 ABG pH 7.14 L* Cancelled 7.23 L ABG pCO2 54.2 H Cancelled 42.7 ABG pO2 158.7 H Cancelled 167.6 H ABG HCO3 18.1 L Cancelled 17.6 L ABG O2 Saturation 98.4 H Cancelled 98.8 H ABG Base Excess -11.0 Cancelled -9.5 Carboxyhemoglobin FiO2 60% Cancelled 50% Sodium Potassium Chloride Carbon Dioxide Anion Gap BUN Creatinine Est GFR ( Amer) Est GFR (Non-Af Amer) Glucose Serum Osmolality Calcium Magnesium Total Bilirubin AST ALT Alkaline Phosphatase Ammonia Total Protein Albumin Urine Color Urine Appearance Urine pH Ur Specific Kathryn Urine Protein Urine Glucose (UA) Urine Ketones Urine Blood Urine Nitrite Ur Leukocyte Esterase 01/01/19 01/01/19 01/01/19 00:46 01:17 05:18 WBC 13.5 H RBC 3.67 L Hgb 11.5 L Hct 34.7 L MCV 95 MCH 31.3 MCHC 33.0 RDW 15.1 H Plt Count 197 Seg Neutrophils % Not Reportable Lymphocytes % Not Reportable Monocytes % Not Reportable Eosinophils % Not Reportable Basophils % Not Reportable Absolute Neutrophils Not Reportable Absolute Lymphocytes Not Reportable Absolute Monocytes Not Reportable Absolute Eosinophils Not Reportable Absolute Basophils Not Reportable Carbonic Acid HCO3/H2CO3 Ratio ABG pH ABG pCO2 ABG pO2 ABG HCO3 ABG O2 Saturation ABG Base Excess Carboxyhemoglobin FiO2 Sodium Cancelled 147.9 H Potassium Cancelled 5.6 H Chloride Cancelled 119 H Carbon Dioxide Cancelled 18 L Anion Gap Cancelled 11 BUN Cancelled 92 H Creatinine Cancelled 2.64 H Est GFR ( Amer) Cancelled 31 L Est GFR (Non-Af Amer) Cancelled 25 L Glucose Cancelled 128 H Serum Osmolality Calcium Cancelled 8.2 L Magnesium Total Bilirubin AST ALT Alkaline Phosphatase Ammonia Total Protein Albumin Urine Color Urine Appearance Urine pH Ur Specific Kathryn Urine Protein Urine Glucose (UA) Urine Ketones Urine Blood Urine Nitrite Ur Leukocyte Esterase 01/01/19 01/01/19 01/01/19 05:18 06:20 08:57 WBC 11.8 H RBC 3.69 L Hgb 11.4 L Hct 34.8 L MCV 94 MCH 30.8 MCHC 32.7 RDW 15.0 H Plt Count 191 Seg Neutrophils % Not Reportable Lymphocytes % Not Reportable Monocytes % Not Reportable Eosinophils % Not Reportable Basophils % Not Reportable Absolute Neutrophils Not Reportable Absolute Lymphocytes Not Reportable Absolute Monocytes Not Reportable Absolute Eosinophils Not Reportable Absolute Basophils Not Reportable Carbonic Acid 1.04 L HCO3/H2CO3 Ratio 16:1 ABG pH 7.31 L ABG pCO2 34.4 L ABG pO2 95.5 ABG HCO3 17.0 L ABG O2 Saturation 96.8 ABG Base Excess -8.3 Carboxyhemoglobin FiO2 30% Sodium 146.8 H Potassium 5.2 H Chloride 119 H Carbon Dioxide 19 L Anion Gap 9 BUN 80 H Creatinine 2.10 H Est GFR ( Amer) 40 L Est GFR (Non-Af Amer) 33 L Glucose 130 H Serum Osmolality Calcium 8.7 Magnesium Total Bilirubin 0.6 AST 110 H ALT 63 Alkaline Phosphatase 98 Ammonia Total Protein 5.8 L Albumin 3.3 L Urine Color Urine Appearance Urine pH Ur Specific Kathryn Urine Protein Urine Glucose (UA) Urine Ketones Urine Blood Urine Nitrite Ur Leukocyte Esterase 12/31/18 12/31/18 01/01/19 08:45 08:45 05:18 Creatine Kinase 8363 H 6942 H CK-MB (CK-2) 18.40 H Troponin I < 0.012 Impressions: Abdomen/Pelvis CT 12/31/18 00:00 IMPRESSION: Right lower lobe pneumonia. No acute finding in the abdomen or pelvis. Osseous findings as described Guidance Fluoroscopy 12/31/18 00:00 IMPRESSION: Please see combined report for performance of procedure and radiologic supervision and interpretation. Head CT 12/31/18 09:02 IMPRESSION: NORMAL BRAIN CT WITHOUT CONTRAST. EVIDENCE OF ACUTE STROKE: NO. Lumbar Puncture 12/31/18 10:00 IMPRESSION: Lumbar puncture under fluoroscopy. No immediate complication. Head MRI 12/31/18 12:55 IMPRESSION: NORMAL MRI OF THE BRAIN WITHOUT INTRAVENOUS GADOLINIUM CONTRAST. EVIDENCE OF ACUTE STROKE: NO. Chest X-Ray 01/01/19 00:00 IMPRESSION: STABLE APPEARANCE OF THE CHEST. SUPPORT DEVICES UNCHANGED. Assessment & Plan - Diagnosis (1) Pneumonia Is this a current diagnosis for this admission?: Yes Plan: Right upper lobe air space opacities previous aspiration pneumonitis (2) Acute encephalopathy Is this a current diagnosis for this admission?: Yes Plan: Possibly alcohol related possibly hypoxia or related to his acute renal failure (3) Acute renal failure Qualifiers: Acute renal failure type: unspecified Qualified Code(s): N17.9 - Acute kidney failure, unspecified Is this a current diagnosis for this admission?: Yes Plan: Total rehydration (4) Rhabdomyolysis Qualifiers: Rhabdomyolysis type: traumatic Encounter type: initial encounter Qualified Code(s): T79.6XXA - Traumatic ischemia of muscle, initial encounter Is this a current diagnosis for this admission?: Yes Plan: Hydration avoiding fluid overload - Time Total Critical Time (Minutes): 55
--- NOTE | 2019-01-08 15:07 | PDOC PROGRESS REPORT ---
Subjective Progress Note for:: 01/02/19 Subjective:: Patient intubated and sedated Reason For Visit: ACUTE ENCEPHALOPATHY,ACUTE RENAL FAILURE, Physical Exam Vital Signs: Temp Pulse Resp BP Pulse Ox 99.2 F 75 19 144/86 H 93 01/08/19 11:02 01/08/19 11:02 01/08/19 11:02 01/08/19 11:02 01/08/19 11:02 Intake & Output 01/07/19 01/08/19 01/09/19 06:59 06:59 06:59 Intake Total 2867 1951 120 Output Total 4025 3625 900 Balance -9982 -1482 -780 Weight 89.1 kg 86.4 kg General appearance: PRESENT: no acute distress, well-developed, well-nourished Head exam: PRESENT: atraumatic, normocephalic Eye exam: PRESENT: conjunctiva pink, EOMI, PERRLA. ABSENT: scleral icterus Ear exam: PRESENT: normal external ear exam Mouth exam: PRESENT: moist, tongue midline Neck exam: ABSENT: carotid bruit, JVD, lymphadenopathy, thyromegaly Respiratory exam: PRESENT: decreased breath sounds, prolonged expiratory phas, rales, rhonchi, unlabored. ABSENT: wheezes Cardiovascular exam: PRESENT: irregular rhythm. ABSENT: diastolic murmur, rubs, systolic murmur Pulses: PRESENT: normal dorsalis pedis pul Vascular exam: PRESENT: normal capillary refill GI/Abdominal exam: PRESENT: normal bowel sounds, soft. ABSENT: distended, guard ing, mass, organolmegaly, rebound, tenderness Rectal exam: PRESENT: deferred Extremities exam: PRESENT: full ROM. ABSENT: calf tenderness, clubbing, pedal edema Neurological exam: ABSENT: awake, motor sensory deficit Psychiatric exam: PRESENT: appropriate affect, normal mood. ABSENT: homicidal ideation, suicidal ideation Skin exam: PRESENT: dry, intact, warm. ABSENT: cyanosis, rash Results Laboratory Results: 01/08/19 04:15 01/08/19 04:15 01/07/19 01/08/19 01/08/19 15:55 04:15 04:15 WBC 11.2 H RBC 4.19 L Hgb 12.9 L Hct 38.3 MCV 91 MCH 30.9 MCHC 33.8 RDW 13.6 Plt Count 242 Seg Neutrophils % Not Reportable Lymphocytes % Not Reportable Monocytes % Not Reportable Eosinophils % Not Reportable Basophils % Not Reportable Absolute Neutrophils Not Reportable Absolute Lymphocytes Not Reportable Absolute Monocytes Not Reportable Absolute Eosinophils Not Reportable Absolute Basophils Not Reportable Carbonic Acid 1.03 L HCO3/H2CO3 Ratio 24:1 ABG pH 7.48 H ABG pCO2 34.3 L ABG pO2 73.8 L ABG HCO3 25.2 H ABG O2 Saturation 95.9 ABG Base Excess 2.2 FiO2 ROOM AIR Sodium 141.9 Potassium 4.1 Chloride 108 H Carbon Dioxide 21 L Anion Gap 13 BUN 19 Creatinine 0.55 Est GFR ( Amer) > 60 Est GFR (Non-Af Amer) > 60 Glucose 83 Calcium 9.1 01/08/19 06:05 WBC RBC Hgb Hct MCV MCH MCHC RDW Plt Count Seg Neutrophils % Lymphocytes % Monocytes % Eosinophils % Basophils % Absolute Neutrophils Absolute Lymphocytes Absolute Monocytes Absolute Eosinophils Absolute Basophils Carbonic Acid 1.02 L HCO3/H2CO3 Ratio 23:1 ABG pH 7.46 H ABG pCO2 33.8 L ABG pO2 79.5 L ABG HCO3 23.7 ABG O2 Saturation 96.4 ABG Base Excess 0.6 FiO2 ROOM AIR Sodium Potassium Chloride Carbon Dioxide Anion Gap BUN Creatinine Est GFR ( Amer) Est GFR (Non-Af Amer) Glucose Calcium 12/31/18 12/31/18 01/01/19 08:45 08:45 05:18 Creatine Kinase 8363 H 6942 H CK-MB (CK-2) 18.40 H Troponin I < 0.012 01/02/19 01/08/19 04:12 04:15 Creatine Kinase 2143 H 108 CK-MB (CK-2) Troponin I Impressions: Abdomen/Pelvis CT 12/31/18 00:00 IMPRESSION: Right lower lobe pneumonia. No acute finding in the abdomen or pelvis. Osseous findings as described Head CT 12/31/18 09:02 IMPRESSION: NORMAL BRAIN CT WITHOUT CONTRAST. EVIDENCE OF ACUTE STROKE: NO. Head MRI 12/31/18 12:55 IMPRESSION: NORMAL MRI OF THE BRAIN WITHOUT INTRAVENOUS GADOLINIUM CONTRAST. EVIDENCE OF ACUTE STROKE: NO. Guidance Fluoroscopy 01/01/19 00:00 IMPRESSION: Lumbar puncture under fluoroscopy. No immediate complication. Lumbar Puncture 01/01/19 00:00 IMPRESSION: Lumbar puncture under fluoroscopy. No immediate complication. Chest X-Ray 01/08/19 06:00 IMPRESSION: NO ACUTE RADIOGRAPHIC FINDING IN THE CHEST. Assessment & Plan - Diagnosis (1) Acute encephalopathy Is this a current diagnosis for this admission?: Yes Plan: Possibly alcohol-related possibly hypoxia or related to acute renal failure (2) Acute renal failure Qualifiers: Acute renal failure type: unspecified Qualified Code(s): N17.9 - Acute kidney failure, unspecified Is this a current diagnosis for this admission?: Yes Plan: Total rehydration (3) Pneumonia Is this a current diagnosis for this admission?: Yes Plan: Upper lobe airspace opacities previous aspiration pneumonitis (4) Rhabdomyolysis Qualifiers: Rhabdomyolysis type: traumatic Encounter type: initial encounter Qualified Code(s): T79.6XXA - Traumatic ischemia of muscle, initial encounter Is this a current diagnosis for this admission?: Yes Plan: hydration of avoiding fluid overload - Time Total Critical Time (Minutes): 40 Inpatient Scribe Statement - . Entered by Samaria Butcher, acting as scribe for .
--- NOTE | 2019-01-08 15:10 | PDOC PROGRESS REPORT ---
Subjective Progress Note for:: 01/03/19 Subjective:: Patient intubated and sedated Reason For Visit: ACUTE ENCEPHALOPATHY,ACUTE RENAL FAILURE, Physical Exam Vital Signs: Temp Pulse Resp BP Pulse Ox 99.2 F 75 19 144/86 H 93 01/08/19 11:02 01/08/19 11:02 01/08/19 11:02 01/08/19 11:02 01/08/19 11:02 Intake & Output 01/07/19 01/08/19 01/09/19 06:59 06:59 06:59 Intake Total 2867 1951 120 Output Total 4025 3625 900 Balance -3338 -4472 -804 Weight 89.1 kg 86.4 kg General appearance: PRESENT: no acute distress, well-developed, well-nourished Head exam: PRESENT: atraumatic, normocephalic Eye exam: PRESENT: conjunctiva pink, EOMI, PERRLA. ABSENT: scleral icterus Ear exam: PRESENT: normal external ear exam Mouth exam: PRESENT: moist, tongue midline Neck exam: ABSENT: carotid bruit, JVD, lymphadenopathy, thyromegaly Respiratory exam: PRESENT: decreased breath sounds, prolonged expiratory phas, rales, rhonchi. ABSENT: wheezes Cardiovascular exam: PRESENT: irregular rhythm. ABSENT: diastolic murmur, rubs, systolic murmur Pulses: PRESENT: normal radial pulses Vascular exam: PRESENT: normal capillary refill GI/Abdominal exam: PRESENT: normal bowel sounds, soft. ABSENT: distended, guarding, mass, organolmegaly, rebound, tenderness Rectal exam: PRESENT: deferred Extremities exam: PRESENT: full ROM. ABSENT: calf tenderness, clubbing, pedal edema Neurological exam: ABSENT: awake, motor sensory deficit Psychiatric exam: PRESENT: normal mood. ABSENT: homicidal ideation, suicidal ideation Skin exam: PRESENT: dry, intact, warm. ABSENT: cyanosis, rash Results Laboratory Results: 01/08/19 04:15 01/08/19 04:15 01/07/19 01/08/19 01/08/19 15:55 04:15 04:15 WBC 11.2 H RBC 4.19 L Hgb 12.9 L Hct 38.3 MCV 91 MCH 30.9 MCHC 33.8 RDW 13.6 Plt Count 242 Seg Neutrophils % Not Reportable Lymphocytes % Not Reportable Monocytes % Not Reportable Eosinophils % Not Reportable Basophils % Not Reportable Absolute Neutrophils Not Reportable Absolute Lymphocytes Not Reportable Absolute Monocytes Not Reportable Absolute Eosinophils Not Reportable Absolute Basophils Not Reportable Carbonic Acid 1.03 L HCO3/H2CO3 Ratio 24:1 ABG pH 7.48 H ABG pCO2 34.3 L ABG pO2 73.8 L ABG HCO3 25.2 H ABG O2 Saturation 95.9 ABG Base Excess 2.2 FiO2 ROOM AIR Sodium 141.9 Potassium 4.1 Chloride 108 H Carbon Dioxide 21 L Anion Gap 13 BUN 19 Creatinine 0.55 Est GFR ( Amer) > 60 Est GFR (Non-Af Amer) > 60 Glucose 83 Calcium 9.1 01/08/19 06:05 WBC RBC Hgb Hct MCV MCH MCHC RDW Plt Count Seg Neutrophils % Lymphocytes % Monocytes % Eosinophils % Basophils % Absolute Neutrophils Absolute Lymphocytes Absolute Monocytes Absolute Eosinophils Absolute Basophils Carbonic Acid 1.02 L HCO3/H2CO3 Ratio 23:1 ABG pH 7.46 H ABG pCO2 33.8 L ABG pO2 79.5 L ABG HCO3 23.7 ABG O2 Saturation 96.4 ABG Base Excess 0.6 FiO2 ROOM AIR Sodium Potassium Chloride Carbon Dioxide Anion Gap BUN Creatinine Est GFR ( Amer) Est GFR (Non-Af Amer) Glucose Calcium 12/31/18 12/31/18 01/01/19 08:45 08:45 05:18 Creatine Kinase 8363 H 6942 H CK-MB (CK-2) 18.40 H Troponin I < 0.012 01/02/19 01/08/19 04:12 04:15 Creatine Kinase 2143 H 108 CK-MB (CK-2) Troponin I Impressions: Abdomen/Pelvis CT 12/31/18 00:00 IMPRESSION: Right lower lobe pneumonia. No acute finding in the abdomen or pelvis. Osseous findings as described Head CT 12/31/18 09:02 IMPRESSION: NORMAL BRAIN CT WITHOUT CONTRAST. EVIDENCE OF ACUTE STROKE: NO. Head MRI 12/31/18 12:55 IMPRESSION: NORMAL MRI OF THE BRAIN WITHOUT INTRAVENOUS GADOLINIUM CONTRAST. EVIDENCE OF ACUTE STROKE: NO. Guidance Fluoroscopy 01/01/19 00:00 IMPRESSION: Lumbar puncture under fluoroscopy. No immediate complication. Lumbar Puncture 01/01/19 00:00 IMPRESSION: Lumbar puncture under fluoroscopy. No immediate complication. Chest X-Ray 01/08/19 06:00 IMPRESSION: NO ACUTE RADIOGRAPHIC FINDING IN THE CHEST. Assessment & Plan - Diagnosis (1) Acute encephalopathy Is this a current diagnosis for this admission?: Yes Plan: Possibly alcohol-related possibly hypoxia or related to acute renal failure (2) Acute renal failure Qualifiers: Acute renal failure type: unspecified Qualified Code(s): N17.9 - Acute kidney failure, unspecified Is this a current diagnosis for this admission?: Yes Plan: Total rehydration (3) Pneumonia Is this a current diagnosis for this admission?: Yes Plan: Upper lobe airspace opacities previous aspiration pneumonitis (4) Rhabdomyolysis Qualifiers: Rhabdomyolysis type: traumatic Encounter type: initial encounter Qualified Code(s): T79.6XXA - Traumatic ischemia of muscle, initial encounter Is this a current diagnosis for this admission?: Yes Plan: hydration of avoiding fluid overload - Time Total Critical Time (Minutes): 45 Inpatient Scribe Statement - . Entered by Samaria Butcher, acting as scribe for .
--- NOTE | 2019-01-08 15:13 | PDOC PROGRESS REPORT ---
Subjective Progress Note for:: 01/04/19 Subjective:: Patient intubated and sedated Reason For Visit: ACUTE ENCEPHALOPATHY,ACUTE RENAL FAILURE, Physical Exam Vital Signs: Temp Pulse Resp BP Pulse Ox 99.2 F 75 19 144/86 H 93 01/08/19 11:02 01/08/19 11:02 01/08/19 11:02 01/08/19 11:02 01/08/19 11:02 Intake & Output 01/07/19 01/08/19 01/09/19 06:59 06:59 06:59 Intake Total 2867 1951 120 Output Total 4025 3625 900 Balance -9445 -8077 -140 Weight 89.1 kg 86.4 kg General appearance: PRESENT: no acute distress, well-developed, well-nourished Head exam: PRESENT: atraumatic, normocephalic Eye exam: PRESENT: conjunctiva pink, EOMI, PERRLA. ABSENT: scleral icterus Ear exam: PRESENT: normal external ear exam Mouth exam: PRESENT: moist, tongue midline Neck exam: ABSENT: carotid bruit, JVD, lymphadenopathy, thyromegaly Respiratory exam: PRESENT: decreased breath sounds, prolonged expiratory phas, rales, rhonchi. ABSENT: wheezes Cardiovascular exam: PRESENT: RRR. ABSENT: diastolic murmur, rubs, systolic murmur Pulses: PRESENT: normal radial pulses Vascular exam: PRESENT: normal capillary refill GI/Abdominal exam: PRESENT: normal bowel sounds, soft. ABSENT: distended, guarding, mass, organolmegaly, rebound, tenderness Rectal exam: PRESENT: deferred Extremities exam: PRESENT: full ROM. ABSENT: calf tenderness, clubbing, pedal edema Neurological exam: ABSENT: awake, motor sensory deficit Psychiatric exam: PRESENT: appropriate affect, normal mood. ABSENT: homicidal ideation, suicidal ideation Skin exam: PRESENT: dry, intact, warm. ABSENT: cyanosis, rash Results Laboratory Results: 01/08/19 04:15 01/08/19 04:15 01/07/19 01/08/19 01/08/19 15:55 04:15 04:15 WBC 11.2 H RBC 4.19 L Hgb 12.9 L Hct 38.3 MCV 91 MCH 30.9 MCHC 33.8 RDW 13.6 Plt Count 242 Seg Neutrophils % Not Reportable Lymphocytes % Not Reportable Monocytes % Not Reportable Eosinophils % Not Reportable Basophils % Not Reportable Absolute Neutrophils Not Reportable Absolute Lymphocytes Not Reportable Absolute Monocytes Not Reportable Absolute Eosinophils Not Reportable Absolute Basophils Not Reportable Carbonic Acid 1.03 L HCO3/H2CO3 Ratio 24:1 ABG pH 7.48 H ABG pCO2 34.3 L ABG pO2 73.8 L ABG HCO3 25.2 H ABG O2 Saturation 95.9 ABG Base Excess 2.2 FiO2 ROOM AIR Sodium 141.9 Potassium 4.1 Chloride 108 H Carbon Dioxide 21 L Anion Gap 13 BUN 19 Creatinine 0.55 Est GFR ( Amer) > 60 Est GFR (Non-Af Amer) > 60 Glucose 83 Calcium 9.1 01/08/19 06:05 WBC RBC Hgb Hct MCV MCH MCHC RDW Plt Count Seg Neutrophils % Lymphocytes % Monocytes % Eosinophils % Basophils % Absolute Neutrophils Absolute Lymphocytes Absolute Monocytes Absolute Eosinophils Absolute Basophils Carbonic Acid 1.02 L HCO3/H2CO3 Ratio 23:1 ABG pH 7.46 H ABG pCO2 33.8 L ABG pO2 79.5 L ABG HCO3 23.7 ABG O2 Saturation 96.4 ABG Base Excess 0.6 FiO2 ROOM AIR Sodium Potassium Chloride Carbon Dioxide Anion Gap BUN Creatinine Est GFR ( Amer) Est GFR (Non-Af Amer) Glucose Calcium 12/31/18 12/31/18 01/01/19 08:45 08:45 05:18 Creatine Kinase 8363 H 6942 H CK-MB (CK-2) 18.40 H Troponin I < 0.012 01/02/19 01/08/19 04:12 04:15 Creatine Kinase 2143 H 108 CK-MB (CK-2) Troponin I Impressions: Abdomen/Pelvis CT 12/31/18 00:00 IMPRESSION: Right lower lobe pneumonia. No acute finding in the abdomen or pelvis. Osseous findings as described Head CT 12/31/18 09:02 IMPRESSION: NORMAL BRAIN CT WITHOUT CONTRAST. EVIDENCE OF ACUTE STROKE: NO. Head MRI 12/31/18 12:55 IMPRESSION: NORMAL MRI OF THE BRAIN WITHOUT INTRAVENOUS GADOLINIUM CONTRAST. EVIDENCE OF ACUTE STROKE: NO. Guidance Fluoroscopy 01/01/19 00:00 IMPRESSION: Lumbar puncture under fluoroscopy. No immediate complication. Lumbar Puncture 01/01/19 00:00 IMPRESSION: Lumbar puncture under fluoroscopy. No immediate complication. Chest X-Ray 01/08/19 06:00 IMPRESSION: NO ACUTE RADIOGRAPHIC FINDING IN THE CHEST. Assessment & Plan - Diagnosis (1) Acute encephalopathy Is this a current diagnosis for this admission?: Yes Plan: Possibly alcohol-related possibly hypoxia or related to acute renal failure (2) Acute renal failure Qualifiers: Acute renal failure type: unspecified Qualified Code(s): N17.9 - Acute kidney failure, unspecified Is this a current diagnosis for this admission?: Yes Plan: Total rehydration (3) Pneumonia Is this a current diagnosis for this admission?: Yes Plan: Upper lobe airspace opacities previous aspiration pneumonitis (4) Rhabdomyolysis Qualifiers: Rhabdomyolysis type: traumatic Encounter type: initial encounter Qualified Code(s): T79.6XXA - Traumatic ischemia of muscle, initial encounter Is this a current diagnosis for this admission?: Yes Plan: hydration of avoiding fluid overload - Time Total Critical Time (Minutes): 40 Inpatient Scribe Statement - . Entered by Samaria Butcher, acting as scribe for .
--- NOTE | 2019-01-08 15:19 | PDOC PROGRESS REPORT ---
Subjective Progress Note for:: 01/05/19 Subjective:: Patient intubated and sedated Reason For Visit: ACUTE ENCEPHALOPATHY,ACUTE RENAL FAILURE, Physical Exam Vital Signs: Temp Pulse Resp BP Pulse Ox 99.2 F 76 19 144/86 H 93 01/08/19 11:02 01/08/19 14:00 01/08/19 11:02 01/08/19 11:02 01/08/19 11:02 Intake & Output 01/07/19 01/08/19 01/09/19 06:59 06:59 06:59 Intake Total 2867 1951 120 Output Total 4025 3625 900 Balance -7786 -5174 -780 Weight 89.1 kg 86.4 kg General appearance: PRESENT: no acute distress, disheveled, obese Head exam: PRESENT: atraumatic, normocephalic Eye exam: PRESENT: conjunctiva pink, EOMI, PERRLA. ABSENT: scleral icterus Ear exam: PRESENT: normal external ear exam Mouth exam: PRESENT: moist, tongue midline Neck exam: ABSENT: carotid bruit, JVD, lymphadenopathy, thyromegaly Respiratory exam: PRESENT: rales, rhonchi, unlabored, wheezes Cardiovascular exam: PRESENT: irregular rhythm. ABSENT: diastolic murmur, rubs, systolic murmur Pulses: PRESENT: normal dorsalis pedis pul Vascular exam: PRESENT: normal capillary refill GI/Abdominal exam: PRESENT: normal bowel sounds, soft. ABSENT: distended, guarding, mass, organolmegaly, rebound, tenderness Rectal exam: PRESENT: deferred Extremities exam: PRESENT: full ROM. ABSENT: calf tenderness, clubbing, pedal edema Neurological exam: ABSENT: awake, motor sensory deficit Psychiatric exam: PRESENT: normal mood. ABSENT: homicidal ideation, suicidal ideation Skin exam: PRESENT: dry, intact, warm. ABSENT: cyanosis, rash Results Laboratory Results: 01/08/19 04:15 01/08/19 04:15 01/07/19 01/08/19 01/08/19 15:55 04:15 04:15 WBC 11.2 H RBC 4.19 L Hgb 12.9 L Hct 38.3 MCV 91 MCH 30.9 MCHC 33.8 RDW 13.6 Plt Count 242 Seg Neutrophils % Not Reportable Lymphocytes % Not Reportable Monocytes % Not Reportable Eosinophils % Not Reportable Basophils % Not Reportable Absolute Neutrophils Not Reportable Absolute Lymphocytes Not Reportable Absolute Monocytes Not Reportable Absolute Eosinophils Not Reportable Absolute Basophils Not Reportable Carbonic Acid 1.03 L HCO3/H2CO3 Ratio 24:1 ABG pH 7.48 H ABG pCO2 34.3 L ABG pO2 73.8 L ABG HCO3 25.2 H ABG O2 Saturation 95.9 ABG Base Excess 2.2 FiO2 ROOM AIR Sodium 141.9 Potassium 4.1 Chloride 108 H Carbon Dioxide 21 L Anion Gap 13 BUN 19 Creatinine 0.55 Est GFR ( Amer) > 60 Est GFR (Non-Af Amer) > 60 Glucose 83 Calcium 9.1 01/08/19 06:05 WBC RBC Hgb Hct MCV MCH MCHC RDW Plt Count Seg Neutrophils % Lymphocytes % Monocytes % Eosinophils % Basophils % Absolute Neutrophils Absolute Lymphocytes Absolute Monocytes Absolute Eosinophils Absolute Basophils Carbonic Acid 1.02 L HCO3/H2CO3 Ratio 23:1 ABG pH 7.46 H ABG pCO2 33.8 L ABG pO2 79.5 L ABG HCO3 23.7 ABG O2 Saturation 96.4 ABG Base Excess 0.6 FiO2 ROOM AIR Sodium Potassium Chloride Carbon Dioxide Anion Gap BUN Creatinine Est GFR ( Amer) Est GFR (Non-Af Amer) Glucose Calcium 12/31/18 12/31/18 01/01/19 08:45 08:45 05:18 Creatine Kinase 8363 H 6942 H CK-MB (CK-2) 18.40 H Troponin I < 0.012 01/02/19 01/08/19 04:12 04:15 Creatine Kinase 2143 H 108 CK-MB (CK-2) Troponin I Impressions: Abdomen/Pelvis CT 12/31/18 00:00 IMPRESSION: Right lower lobe pneumonia. No acute finding in the abdomen or pelvis. Osseous findings as described Head CT 12/31/18 09:02 IMPRESSION: NORMAL BRAIN CT WITHOUT CONTRAST. EVIDENCE OF ACUTE STROKE: NO. Head MRI 12/31/18 12:55 IMPRESSION: NORMAL MRI OF THE BRAIN WITHOUT INTRAVENOUS GADOLINIUM CONTRAST. EVIDENCE OF ACUTE STROKE: NO. Guidance Fluoroscopy 01/01/19 00:00 IMPRESSION: Lumbar puncture under fluoroscopy. No immediate complication. Lumbar Puncture 01/01/19 00:00 IMPRESSION: Lumbar puncture under fluoroscopy. No immediate complication. Chest X-Ray 01/08/19 06:00 IMPRESSION: NO ACUTE RADIOGRAPHIC FINDING IN THE CHEST. Assessment & Plan - Diagnosis (1) Acute encephalopathy Is this a current diagnosis for this admission?: Yes Plan: Possibly alcohol-related possibly hypoxia or related to acute renal failure (2) Acute renal failure Qualifiers: Acute renal failure type: unspecified Qualified Code(s): N17.9 - Acute kidney failure, unspecified Is this a current diagnosis for this admission?: Yes Plan: Total rehydration (3) Pneumonia Is this a current diagnosis for this admission?: Yes Plan: Upper lobe airspace opacities previous aspiration pneumonitis (4) Rhabdomyolysis Qualifiers: Rhabdomyolysis type: traumatic Encounter type: initial encounter Qualified Code(s): T79.6XXA - Traumatic ischemia of muscle, initial encounter Is this a current diagnosis for this admission?: Yes Plan: hydration of avoiding fluid overload - Time Total Critical Time (Minutes): 40 Inpatient Scribe Statement - . Entered by Samaria Butcher, acting as scribe for .
--- NOTE | 2019-01-08 15:24 | PDOC PROGRESS REPORT ---
Subjective Progress Note for:: 01/07/19 Subjective:: patient extubated Reason For Visit: ACUTE ENCEPHALOPATHY,ACUTE RENAL FAILURE, Physical Exam Vital Signs: Temp Pulse Resp BP Pulse Ox 99.2 F 76 19 144/86 H 93 01/08/19 11:02 01/08/19 14:00 01/08/19 11:02 01/08/19 11:02 01/08/19 11:02 Intake & Output 01/07/19 01/08/19 01/09/19 06:59 06:59 06:59 Intake Total 2867 1951 120 Output Total 4025 3625 900 Balance -2520 -0454 -043 Weight 89.1 kg 86.4 kg General appearance: PRESENT: no acute distress, well-developed, well-nourished Head exam: PRESENT: atraumatic, normocephalic Eye exam: PRESENT: conjunctiva pink, EOMI, PERRLA. ABSENT: scleral icterus Ear exam: PRESENT: normal external ear exam Mouth exam: PRESENT: moist, tongue midline Neck exam: ABSENT: carotid bruit, JVD, lymphadenopathy, thyromegaly Respiratory exam: PRESENT: decreased breath sounds, prolonged expiratory phas. ABSENT: rales, rhonchi, wheezes Cardiovascular exam: PRESENT: irregular rhythm. ABSENT: diastolic murmur, rubs, systolic murmur Pulses: PRESENT: normal radial pulses Vascular exam: PRESENT: normal capillary refill GI/Abdominal exam: PRESENT: normal bowel sounds, soft. ABSENT: distended, guarding, mass, organolmegaly, rebound, tenderness Rectal exam: PRESENT: deferred Extremities exam: PRESENT: full ROM. ABSENT: calf tenderness, clubbing, pedal edema Neurological exam: PRESENT: awake, oriented to person, oriented to place, oriented to time, oriented to situation, CN II-XII grossly intact. ABSENT: alert, motor sensory deficit Psychiatric exam: PRESENT: appropriate affect, normal mood. ABSENT: homicidal ideation, suicidal ideation Skin exam: PRESENT: dry, intact, warm. ABSENT: cyanosis, rash Results Laboratory Results: 01/08/19 04:15 01/08/19 04:15 01/07/19 01/08/19 01/08/19 15:55 04:15 04:15 WBC 11.2 H RBC 4.19 L Hgb 12.9 L Hct 38.3 MCV 91 MCH 30.9 MCHC 33.8 RDW 13.6 Plt Count 242 Seg Neutrophils % Not Reportable Lymphocytes % Not Reportable Monocytes % Not Reportable Eosinophils % Not Reportable Basophils % Not Reportable Absolute Neutrophils Not Reportable Absolute Lymphocytes Not Reportable Absolute Monocytes Not Reportable Absolute Eosinophils Not Reportable Absolute Basophils Not Reportable Carbonic Acid 1.03 L HCO3/H2CO3 Ratio 24:1 ABG pH 7.48 H ABG pCO2 34.3 L ABG pO2 73.8 L ABG HCO3 25.2 H ABG O2 Saturation 95.9 ABG Base Excess 2.2 FiO2 ROOM AIR Sodium 141.9 Potassium 4.1 Chloride 108 H Carbon Dioxide 21 L Anion Gap 13 BUN 19 Creatinine 0.55 Est GFR ( Amer) > 60 Est GFR (Non-Af Amer) > 60 Glucose 83 Calcium 9.1 01/08/19 06:05 WBC RBC Hgb Hct MCV MCH MCHC RDW Plt Count Seg Neutrophils % Lymphocytes % Monocytes % Eosinophils % Basophils % Absolute Neutrophils Absolute Lymphocytes Absolute Monocytes Absolute Eosinophils Absolute Basophils Carbonic Acid 1.02 L HCO3/H2CO3 Ratio 23:1 ABG pH 7.46 H ABG pCO2 33.8 L ABG pO2 79.5 L ABG HCO3 23.7 ABG O2 Saturation 96.4 ABG Base Excess 0.6 FiO2 ROOM AIR Sodium Potassium Chloride Carbon Dioxide Anion Gap BUN Creatinine Est GFR ( Amer) Est GFR (Non-Af Amer) Glucose Calcium 12/31/18 12/31/18 01/01/19 08:45 08:45 05:18 Creatine Kinase 8363 H 6942 H CK-MB (CK-2) 18.40 H Troponin I < 0.012 01/02/19 01/08/19 04:12 04:15 Creatine Kinase 2143 H 108 CK-MB (CK-2) Troponin I Impressions: Abdomen/Pelvis CT 12/31/18 00:00 IMPRESSION: Right lower lobe pneumonia. No acute finding in the abdomen or pelvis. Osseous findings as described Head CT 12/31/18 09:02 IMPRESSION: NORMAL BRAIN CT WITHOUT CONTRAST. EVIDENCE OF ACUTE STROKE: NO. Head MRI 12/31/18 12:55 IMPRESSION: NORMAL MRI OF THE BRAIN WITHOUT INTRAVENOUS GADOLINIUM CONTRAST. EVIDENCE OF ACUTE STROKE: NO. Guidance Fluoroscopy 01/01/19 00:00 IMPRESSION: Lumbar puncture under fluoroscopy. No immediate complication. Lumbar Puncture 01/01/19 00:00 IMPRESSION: Lumbar puncture under fluoroscopy. No immediate complication. Chest X-Ray 01/08/19 06:00 IMPRESSION: NO ACUTE RADIOGRAPHIC FINDING IN THE CHEST. Assessment & Plan - Diagnosis (1) Acute encephalopathy Is this a current diagnosis for this admission?: Yes Plan: Possibly alcohol-related possibly hypoxia or related to acute renal failure (2) Acute renal failure Qualifiers: Acute renal failure type: unspecified Qualified Code(s): N17.9 - Acute kidney failure, unspecified Is this a current diagnosis for this admission?: Yes Plan: Total rehydration (3) Pneumonia Is this a current diagnosis for this admission?: Yes Plan: Upper lobe airspace opacities previous aspiration pneumonitis (4) Rhabdomyolysis Qualifiers: Rhabdomyolysis type: traumatic Encounter type: initial encounter Qualified Code(s): T79.6XXA - Traumatic ischemia of muscle, initial encounter Is this a current diagnosis for this admission?: Yes Plan: hydration of avoiding fluid overload - Time Total Critical Time (Minutes): 35 Inpatient Scribe Statement - . Entered by Samaria Butcher, acting as scribe for .
--- NOTE | 2019-01-08 17:30 | PDOC PROGRESS REPORT ---
Subjective Progress Note for:: 01/08/19 Subjective:: NASH MORAN is a 58 year old male with a past medical history of COPD, hypertension, currently being worked up for possible rheumatoid arthritis and chronic alcohol abuse who was brought in due to AMS believed to be related to acute alcohol intoxication. The patient was intubated for airway protection due to altered mental status. He was extubated yesterday and transferred from ICU to [facility]. Patient was seen this morning on rounds, son is at the bedside. The patient is resting comfortably in bed on room air. He is alert and oriented x3 but becomes intermittently confused when asked more complex questions ("what is the name of your youngest child?" " Do you know why you are in the hospital?"). The patient is also making paranoid statements, he is very concerned that the medical staff is gossiping about him behind his back. Additionally, the patient told his son that he needs to get out of [facility] otherwise the medical staff will "take him up to the rooftop" and hurt him. According to the son, the patient does not have a history of paranoia, schizophrenia, bipolar disorder. The patient does have a history of anxiety and depression. The patient also admits to drinking approximately 12 beers per day prior to his hospitalization. The patient states that on the day he was brought to [facility], he may have been drinking alcohol and taking prescription narcotic pills (Utox was negative). The patient states that he wants to get sober and stop drinking. The patient has not ambulated in the last week due to his ICU stay. Plan to consult psych regarding patient's recent paranoia. This could be manifestation of his alcohol withdrawal or acute delirium. Additionally, plan for physical therapy to work with the patient. At this time he is not ready for discharge home. Reason For Visit: ACUTE ENCEPHALOPATHY,ACUTE RENAL FAILURE, Physical Exam Vital Signs: Temp Pulse Resp BP Pulse Ox 97.1 F 82 18 126/84 H 94 01/08/19 15:41 01/08/19 15:41 01/08/19 15:41 01/08/19 15:41 01/08/19 17:04 Intake & Output 01/07/19 01/08/19 01/09/19 06:59 06:59 06:59 Intake Total 7880 9251 230 Output Total 3571 5317 900 Balance -1158 -1674 -670 Weight 89.1 kg 86.4 kg General appearance: PRESENT: morbidly obese, well-developed, well-nourished Head exam: PRESENT: atraumatic Eye exam: PRESENT: conjunctiva pink, PERRLA Mouth exam: PRESENT: moist, tongue midline Teeth exam: PRESENT: poor dentation Neck exam: PRESENT: full ROM Respiratory exam: PRESENT: clear to auscultation mandi, symmetrical, unlabored Cardiovascular exam: PRESENT: RRR Pulses: PRESENT: normal radial pulses, normal dorsalis pedis pul Vascular exam: PRESENT: normal capillary refill GI/Abdominal exam: PRESENT: soft. ABSENT: distended, tenderness Rectal exam: PRESENT: deferred Gentrourinary exam: PRESENT: indwelling catheter Extremities exam: PRESENT: full ROM. ABSENT: pedal edema Musculoskeletal exam: PRESENT: full ROM. ABSENT: ambulatory Neurological exam: PRESENT: alert, awake, oriented to person, oriented to place, oriented to time. ABSENT: oriented to situation Psychiatric exam: PRESENT: other - paranoid. ABSENT: appropriate affect Focused psych exam: PRESENT: paranoid Skin exam: PRESENT: dry, intact, normal color Results Laboratory Results: 01/08/19 04:15 01/08/19 04:15 01/08/19 01/08/19 01/08/19 04:15 04:15 06:05 WBC 11.2 H RBC 4.19 L Hgb 12.9 L Hct 38.3 MCV 91 MCH 30.9 MCHC 33.8 RDW 13.6 Plt Count 242 Seg Neutrophils % Not Reportable Lymphocytes % Not Reportable Monocytes % Not Reportable Eosinophils % Not Reportable Basophils % Not Reportable Absolute Neutrophils Not Reportable Absolute Lymphocytes Not Reportable Absolute Monocytes Not Reportable Absolute Eosinophils Not Reportable Absolute Basophils Not Reportable Carbonic Acid 1.02 L HCO3/H2CO3 Ratio 23:1 ABG pH 7.46 H ABG pCO2 33.8 L ABG pO2 79.5 L ABG HCO3 23.7 ABG O2 Saturation 96.4 ABG Base Excess 0.6 FiO2 ROOM AIR Sodium 141.9 Potassium 4.1 Chloride 108 H Carbon Dioxide 21 L Anion Gap 13 BUN 19 Creatinine 0.55 Est GFR ( Amer) > 60 Est GFR (Non-Af Amer) > 60 Glucose 83 Calcium 9.1 12/31/18 12/31/18 01/01/19 08:45 08:45 05:18 Creatine Kinase 8363 H 6942 H CK-MB (CK-2) 18.40 H Troponin I < 0.012 01/02/19 01/08/19 04:12 04:15 Creatine Kinase 2143 H 108 CK-MB (CK-2) Troponin I Impressions: Abdomen/Pelvis CT 12/31/18 00:00 IMPRESSION: Right lower lobe pneumonia. No acute finding in the abdomen or pelvis. Osseous findings as described Head CT 12/31/18 09:02 IMPRESSION: NORMAL BRAIN CT WITHOUT CONTRAST. EVIDENCE OF ACUTE STROKE: NO. Head MRI 12/31/18 12:55 IMPRESSION: NORMAL MRI OF THE BRAIN WITHOUT INTRAVENOUS GADOLINIUM CONTRAST. EVIDENCE OF ACUTE STROKE: NO. Guidance Fluoroscopy 01/01/19 00:00 IMPRESSION: Lumbar puncture under fluoroscopy. No immediate complication. Lumbar Puncture 01/01/19 00:00 IMPRESSION: Lumbar puncture under fluoroscopy. No immediate complication. Chest X-Ray 01/08/19 06:00 IMPRESSION: NO ACUTE RADIOGRAPHIC FINDING IN THE CHEST. Status: Imported from PACS Assessment and Plan - Diagnosis (1) Probable septic meningitis Is this a current diagnosis for this admission?: Yes Plan: CSF -negative culture and negative serology for HSV Patient is still demonstrating symptoms of AMS and confusion Continue acyclovir (2) Acute metabolic encephalopathy Is this a current diagnosis for this admission?: Yes Plan: Encephalopathy is multifactorial -possibly due to viral meningitis versus chronic EtOH use and withdrawal versus prolonged exposure to sedation EEG showed diffuse abnormality without evidence of epilepsy Continue to monitor with every shift neuro assessments Head CT and MRI WNL, no neuro pathology Limit sedating medications -narcotics, benzodiazepines, etc (3) Acute kidney injury Is this a current diagnosis for this admission?: Yes Plan: Resolved (4) Leukocytosis Is this a current diagnosis for this admission?: Yes Plan: Relatively unchanged Leukocytosis likely secondary to suspected meningitis WBC increased from 10-->11 Afebrile Other than confusion, relatively nontoxic-appearing Continue with daily CBC (5) Alcohol abuse Is this a current diagnosis for this admission?: Yes Plan: Patient admits to drinking 12 beers per day He is 8-9 days since his last drink PRN Ativan and Haldol for agitation/withdrawal Daily p.o. thiamine and folate Patient requesting information for alcohol rehab Referred to case management (6) Hypernatremia Is this a current diagnosis for this admission?: Yes Plan: Resolved (7) Rhabdomyolysis Qualifiers: Rhabdomyolysis type: traumatic Encounter type: initial encounter Qualified Code(s): T79.6XXA - Traumatic ischemia of muscle, initial encounter Is this a current diagnosis for this admission?: Yes Plan: Resolved Patient found down at home, unknown downtime Initial CK over 1999 Treated with IVF - Time Time Spent with patient: 15-24 minutes Medications reviewed and adjusted accordingly: Yes Anticipated discharge: Home with Homehealth Within: Other - When medically stable - Inpatient Certification Based on my medical assessment, after consideration of the patient's comorbidities, presenting symptoms, or acuity I expect that the services needed warrant INPATIENT care.: Yes I certify that my determination is in accordance with my understanding of Medicare's requirements for reasonable and necessary INPATIENT services [42 CFR 412.3e].: Yes Medical Necessity: Significant Comorbidiites Make Outpatient Treatment Too Risky, Need For Continuous Telemetry Monitoring, Need for Neurological Checks, Risk of Complication if Not Cared For in Hospital
[2019-01-08] MEDS: DEXAMETHASONE SOD PHOSPHATE INJ 4 MG/1 ML VIAL IV SCH (22:03)
[2019-01-09] MEDS: INSULIN LISPRO 100 UNIT/ML 3 ML VIAL SUBCUT SCH ×2 (00:15→05:52)
--- NOTE | 2019-01-09 08:10 | PDOC PROGRESS REPORT ---
Subjective Progress Note for:: 01/06/19 Subjective:: patient intubated and sedated Reason For Visit: ACUTE ENCEPHALOPATHY,ACUTE RENAL FAILURE, Physical Exam Vital Signs: Temp Pulse Resp BP Pulse Ox 98.2 F 67 20 125/77 95 01/09/19 03:22 01/09/19 03:22 01/09/19 03:22 01/09/19 03:22 01/09/19 03:22 Intake & Output 01/08/19 01/09/19 01/10/19 06:59 06:59 06:59 Intake Total 1951 1590 Output Total 5004 5715 Balance -0063 -1430 Weight 86.4 kg 84.1 kg General appearance: PRESENT: no acute distress, well-developed, well-nourished Head exam: PRESENT: atraumatic, normocephalic Eye exam: PRESENT: conjunctiva pink, EOMI, PERRLA. ABSENT: scleral icterus Ear exam: PRESENT: normal external ear exam Mouth exam: PRESENT: moist, tongue midline Neck exam: ABSENT: carotid bruit, JVD, lymphadenopathy, thyromegaly Respiratory exam: PRESENT: decreased breath sounds, prolonged expiratory phas, rales, rhonchi. ABSENT: wheezes Cardiovascular exam: PRESENT: irregular rhythm. ABSENT: diastolic murmur, rubs, systolic murmur Pulses: PRESENT: normal dorsalis pedis pul Vascular exam: PRESENT: normal capillary refill GI/Abdominal exam: PRESENT: normal bowel sounds, soft. ABSENT: distended, guarding, mass, organolmegaly, rebound, tenderness Rectal exam: PRESENT: deferred Extremities exam: PRESENT: full ROM. ABSENT: calf tenderness, clubbing, pedal edema Neurological exam: ABSENT: awake, motor sensory deficit Psychiatric exam: PRESENT: appropriate affect, normal mood. ABSENT: homicidal ideation, suicidal ideation Skin exam: PRESENT: dry, intact, warm. ABSENT: cyanosis, rash Results Laboratory Results: 01/08/19 04:15 01/08/19 04:15 12/31/18 12/31/18 01/01/19 08:45 08:45 05:18 Creatine Kinase 8363 H 6942 H CK-MB (CK-2) 18.40 H Troponin I < 0.012 01/02/19 01/08/19 04:12 04:15 Creatine Kinase 2143 H 108 CK-MB (CK-2) Troponin I Impressions: Abdomen/Pelvis CT 12/31/18 00:00 IMPRESSION: Right lower lobe pneumonia. No acute finding in the abdomen or pelvis. Osseous findings as described Head CT 12/31/18 09:02 IMPRESSION: NORMAL BRAIN CT WITHOUT CONTRAST. EVIDENCE OF ACUTE STROKE: NO. Head MRI 12/31/18 12:55 IMPRESSION: NORMAL MRI OF THE BRAIN WITHOUT INTRAVENOUS GADOLINIUM CONTRAST. EVIDENCE OF ACUTE STROKE: NO. Guidance Fluoroscopy 01/01/19 00:00 IMPRESSION: Lumbar puncture under fluoroscopy. No immediate complication. Lumbar Puncture 01/01/19 00:00 IMPRESSION: Lumbar puncture under fluoroscopy. No immediate complication. Chest X-Ray 01/08/19 06:00 IMPRESSION: NO ACUTE RADIOGRAPHIC FINDING IN THE CHEST. Assessment & Plan - Diagnosis (1) Acute encephalopathy Is this a current diagnosis for this admission?: Yes Plan: Possibly alcohol-related possibly hypoxia or related to acute renal failure (2) Acute renal failure Qualifiers: Acute renal failure type: unspecified Qualified Code(s): N17.9 - Acute kidney failure, unspecified Is this a current diagnosis for this admission?: Yes Plan: Total rehydration (3) Pneumonia Is this a current diagnosis for this admission?: Yes Plan: Upper lobe airspace opacities previous aspiration pneumonitis (4) Rhabdomyolysis Qualifiers: Rhabdomyolysis type: traumatic Encounter type: initial encounter Qualified Code(s): T79.6XXA - Traumatic ischemia of muscle, initial encounter Is this a current diagnosis for this admission?: Yes Plan: hydration of avoiding fluid overload - Time Total Critical Time (Minutes): 40 Inpatient Scribe Statement - . Entered by Samaria Butcher, acting as scribe for .
[2019-01-09] MEDS: HEPARIN SOD (PORCINE) 5,000 UNIT/ML 1 ML SYRINGE SUBCUT SCH ×2 (10:38→22:04)
[2019-01-09] MEDS: DEXAMETHASONE SOD PHOSPHATE INJ 4 MG/1 ML VIAL IV SCH ×2 (10:38→22:04)
[2019-01-09] MEDS: SUCRALFATE 1 GM TABLET PO SCH ×4 (10:38→23:47)
[2019-01-09] MEDS: METOPROLOL TARTRATE 50 MG TABLET PO SCH ×2 (10:39→23:47)
[2019-01-09] MEDS: 1/2 NORMAL SALINE 1,000 ML IV PRN (10:45)
--- NOTE | 2019-01-09 14:05 | PSYCHOLOGICAL NOTE ---
Psych Note - Psych Note Date seen by psych provider: 01/09/19 Time seen by psych provider: 14:15 - Chart review at 1415. Evaluation from 1528- 1541. Psych Note: Presenting Problem: Detox needed for alcohol (drinking for 30-40 years, daily, seltzer drinks recently) and benzodiazepines (prescribed Klonopin). Patient was found on the floor, wrapped in a shower curtain, dressed in only underwear and chewing on his hand. He was paranoid and confused for several days. He has a Hx of alcohol abuse, depression and anxiety. He is prescribed Zoloft 150MG QD (depression), Klonopin (anxiety) and Trazodone (sleep) via [facility] where he gets a drug screen every 3 months and they have pushed for therapy but he has not followed through. Patient interested in detox and treatment. May not meet requirement for detox since in hospital from 12/31/18 to current. He admitted "I'm not a big drug addict, I do have some issues, I need to stop drinking and using Klonopin." , Libby, at bedside stated he at times drinks liquor but "yes it is mainly the fancy seltzer drinks, he has a bag full of medication and continues to drink to the extent he is drunk every night." Patient stated he has had success with sobriety for several years in the past. He stated "I have to do what I have to do, I am just worried I will lose my job." Attending nurse noted mobility issues where it takes two medical staff for assistance currently. Contacted [facility] ([facility]) for 28 day recovery. Provided them information and patient room number for phone to phone. Medication recommendations made by the psychiatric medical provider, Dr. Erika MD., includes: Referencing home medications Decrease Zoloft to 50MG daily Add Effexor 37.5MG daily for depression/focus/energy/to curb cravings Impression/Plan: Patient is cleared from acute psychiatric services. Mobility issues may be only issue for [facility] placement right now. Patient and provided with the outpatient MH, outpatient SA and [facility] specific resource sheets. [facility] contacted and provided with basic information for referral to include patient room number for phone interview. [facility] team can continue to assist with placement efforts but [facility] will coordinate with patient directly. stated transportation would not be an issue if accepted. All parties made aware if accepted placement could be considered Saturday (gives time for mobility issues to get better and continued medical monitoring). Consulted with Dr. Bonilla regarding the management and care of patient. Attending Hospitalist made aware of recommendations.
--- NOTE | 2019-01-09 21:29 | PDOC PROGRESS REPORT ---
Subjective Progress Note for:: 01/09/19 Subjective:: NASH MORAN is a 58 year old male with a past medical history of COPD, hypertension, currently being worked up for possible rheumatoid arthritis and chronic alcohol abuse who was brought in due to AMS believed to be related to acute alcohol intoxication. The patient was intubated for airway protection due to altered mental status. He was extubated yesterday and transferred from ICU to [facility]. Patient was seen this morning on rounds, is at the bedside. The patient is resting comfortably in bedside recliner. He is alert and oriented x3, he is tearful during the interview, stating that he feels very guilty for his intoxicated behavior in front of his grandchild. The patient seems more lucid today, is not making paranoid statements. states she feels that the "fog is lifting." The patient was able to work with PT/OT today, was able to sidestep and get OOB to chair. Will continue working with PT/OT. The states she cannot help care for the patient at home due to her recent surgery. Acute rehab is highly recommended but the patient did not seem interested in this option. At this time he is not ready for discharge home. Reason For Visit: ACUTE ENCEPHALOPATHY,ACUTE RENAL FAILURE, Physical Exam Vital Signs: Temp Pulse Resp BP Pulse Ox 97.5 F 86 16 108/49 L 97 01/09/19 19:34 01/09/19 19:34 01/09/19 19:34 01/09/19 19:34 01/09/19 19:34 Intake & Output 01/08/19 01/09/19 01/10/19 06:59 06:59 06:59 Intake Total 1951 1590 1622 Output Total 4439 2681 400 Balance -7899 -7418 1222 Weight 86.4 kg 84.1 kg General appearance: PRESENT: no acute distress, well-developed, well-nourished Head exam: PRESENT: atraumatic, normocephalic Eye exam: PRESENT: conjunctiva pink, EOMI, PERRLA. ABSENT: scleral icterus Ear exam: PRESENT: normal external ear exam Mouth exam: PRESENT: moist, tongue midline Neck exam: PRESENT: full ROM. ABSENT: carotid bruit, JVD, lymphadenopathy, thyromegaly Respiratory exam: PRESENT: clear to auscultation mandi, symmetrical, unlabored. ABSENT: rales, rhonchi, wheezes Cardiovascular exam: PRESENT: RRR. ABSENT: diastolic murmur, rubs, systolic murmur Pulses: PRESENT: normal radial pulses, normal dorsalis pedis pul Vascular exam: PRESENT: normal capillary refill GI/Abdominal exam: PRESENT: normal bowel sounds, soft. ABSENT: distended, guarding, mass, organolmegaly, rebound, tenderness Rectal exam: PRESENT: deferred Extremities exam: PRESENT: full ROM. ABSENT: calf tenderness, clubbing, pedal edema Musculoskeletal exam: PRESENT: ambulatory, full ROM Neurological exam: PRESENT: alert, awake, oriented to person, oriented to place, oriented to time, oriented to situation Psychiatric exam: PRESENT: appropriate affect, normal mood Skin exam: PRESENT: dry, intact, warm, other - multiple areas of small abrasions to forehead. ABSENT: cyanosis, rash Results Laboratory Results: 01/08/19 04:15 01/08/19 04:15 12/31/18 12/31/18 01/01/19 08:45 08:45 05:18 Creatine Kinase 8363 H 6942 H CK-MB (CK-2) 18.40 H Troponin I < 0.012 01/02/19 01/08/19 04:12 04:15 Creatine Kinase 2143 H 108 CK-MB (CK-2) Troponin I Impressions: Abdomen/Pelvis CT 12/31/18 00:00 IMPRESSION: Right lower lobe pneumonia. No acute finding in the abdomen or pelvis. Osseous findings as described Head CT 12/31/18 09:02 IMPRESSION: NORMAL BRAIN CT WITHOUT CONTRAST. EVIDENCE OF ACUTE STROKE: NO. Head MRI 12/31/18 12:55 IMPRESSION: NORMAL MRI OF THE BRAIN WITHOUT INTRAVENOUS GADOLINIUM CONTRAST. EVIDENCE OF ACUTE STROKE: NO. Guidance Fluoroscopy 01/01/19 00:00 IMPRESSION: Lumbar puncture under fluoroscopy. No immediate complication. Lumbar Puncture 01/01/19 00:00 IMPRESSION: Lumbar puncture under fluoroscopy. No immediate complication. Chest X-Ray 01/08/19 06:00 IMPRESSION: NO ACUTE RADIOGRAPHIC FINDING IN THE CHEST. Status: Imported from PACS Assessment and Plan - Diagnosis (1) Probable septic meningitis Is this a current diagnosis for this admission?: Yes Plan: CSF -negative culture and negative serology for HSV Patient is still demonstrating symptoms of AMS and confusion Continue acyclovir (2) Acute metabolic encephalopathy Is this a current diagnosis for this admission?: Yes Plan: Encephalopathy is multifactorial -possibly due to viral meningitis versus chronic EtOH use and withdrawal versus prolonged exposure to sedation EEG showed diffuse abnormality without evidence of epilepsy Continue to monitor with every shift neuro assessments Head CT and MRI WNL, no neuro pathology Limit sedating medications -narcotics, benzodiazepines, etc (3) Acute kidney injury Is this a current diagnosis for this admission?: Yes Plan: Resolved (4) Leukocytosis Is this a current diagnosis for this admission?: Yes Plan: Relatively unchanged Leukocytosis likely secondary to suspected meningitis WBC increased from 10-->11 yesterday Afebrile Other than confusion, relatively nontoxic-appearing Continue with daily CBC (5) Alcohol abuse Is this a current diagnosis for this admission?: Yes Plan: Patient admits to drinking 12 beers per day He is 9-10 days since his last drink PRN Ativan and Haldol for agitation/withdrawal Daily p.o. thiamine and folate Patient requesting information for alcohol rehab Referred to case management (6) Hypernatremia Is this a current diagnosis for this admission?: Yes Plan: Resolved (7) Rhabdomyolysis Qualifiers: Rhabdomyolysis type: traumatic Encounter type: initial encounter Qualified Code(s): T79.6XXA - Traumatic ischemia of muscle, initial encounter Is this a current diagnosis for this admission?: Yes Plan: Resolved Patient found down at home, unknown downtime Initial CK over 1999 Treated with IVF - Time Time Spent with patient: 15-24 minutes Medications reviewed and adjusted accordingly: Yes Anticipated discharge: Home Within: within 72 hours - Inpatient Certification Based on my medical assessment, after consideration of the patient's comorbidities, presenting symptoms, or acuity I expect that the services needed warrant INPATIENT care.: Yes I certify that my determination is in accordance with my understanding of Medicare's requirements for reasonable and necessary INPATIENT services [42 CFR 412.3e].: Yes Medical Necessity: Need for IV Antibiotics, Risk of Complication if Not Cared For in Hospital
[2019-01-10] MEDS: 1/2 NORMAL SALINE 1,000 ML IV PRN (00:28)
[2019-01-10 05:30] LABS: HEMATOCRIT 36.7 % (37.9-51.0); HEMOGLOBIN 12.4 g/dL (13.5-17.0); MEAN CORPUSCULAR HEMOGLOBIN 31.2 pg (27.0-33.4); MEAN CORPUSCULAR VOLUME 92 fl (80-97); PLATELET COUNT 230 10^3/uL (150-450); RED BLOOD COUNT 3.99 10^6/uL (4.35-5.55); RED CELL DISTRIBUTION WIDTH 13.4 % (11.5-14.0); WHITE BLOOD COUNT 11.4 10^3/uL (4.0-10.5)
[2019-01-10 05:53] LABS: ALANINE AMINOTRANSFERASE 61 U/L (21-72); ALKALINE PHOSPHATASE 68 U/L (38-126); ANION GAP 7 (5-19); ASPARTATE AMINO TRANSFERASE 18 U/L (17-59); BILIRUBIN,DIRECT 0.4 mg/dL (0.0-0.4); BILIRUBIN,TOTAL 0.8 mg/dL (0.2-1.3); BLOOD UREA NITROGEN 23 mg/dL (7-20); CALCIUM 9.1 mg/dL (8.4-10.2); CARBON DIOXIDE 23 mmol/L (22-30); CHLORIDE 109 mmol/L (98-107); GLUCOSE 113 mg/dL (75-110); PHOSPHORUS 4.1 mg/dL (2.5-4.5); POTASSIUM 4.2 mmol/L (3.6-5.0); SODIUM 138.7 mmol/L (137-145); TOTAL PROTEIN 5.3 g/dL (6.3-8.2)
[2019-01-10] MEDS: SUCRALFATE 1 GM TABLET PO SCH ×4 (09:43→21:35)
[2019-01-10] MEDS: SERTRALINE HCL 50 MG TABLET PO SCH (09:44)
[2019-01-10] MEDS: DEXAMETHASONE SOD PHOSPHATE INJ 4 MG/1 ML VIAL IV SCH (09:44)
[2019-01-10] MEDS: HEPARIN SOD (PORCINE) 5,000 UNIT/ML 1 ML SYRINGE SUBCUT SCH ×2 (09:44→21:35)
[2019-01-10] MEDS: METOPROLOL TARTRATE 50 MG TABLET PO SCH ×2 (09:44→21:35)
[2019-01-10] MEDS: VENLAFAXINE HCL 37.5 MG CAP.SR.24H PO SCH (10:03)
--- NOTE | 2019-01-10 12:37 | PDOC PROGRESS REPORT ---
Subjective Progress Note for:: 01/10/19 Subjective:: NASH MORAN is a 58 year old male with a past medical history of COPD, hypertension, currently being worked up for possible rheumatoid arthritis and chronic alcohol abuse who was brought in due to AMS believed to be related to acute alcohol intoxication. The patient was intubated for airway protection due to altered mental status. He was extubated yesterday and transferred from ICU to [facility]. Patient was seen this morning on rounds, is at the bedside. The patient is resting comfortably in bedside recliner, he had just finished PT/OT walking in the hallway stadily with a walker. He is alert and oriented x3. Though process is very clear, he does not make any paranoid delusion statements today. states the patient will still make paranoid statements when medical staff is not in the room. PSYCH was able to see the patient yesterday evening and made medication recommendations. Decreased Wellbutrin dosage and added Effexor to the regimen. Will continue working with PT/OT. The states she cannot help care for the patient at home due to her recent surgery. Acute rehab is highly recommended, patient seems more amenable to this treatment plan today. Discussed with discharge planning who will help find placement. Reason For Visit: ACUTE ENCEPHALOPATHY,ACUTE RENAL FAILURE, Physical Exam Vital Signs: Temp Pulse Resp BP Pulse Ox 97.3 F 65 16 127/71 H 95 01/10/19 07:55 01/10/19 07:55 01/10/19 07:55 01/10/19 07:55 01/10/19 07:55 Intake & Output 01/09/19 01/10/19 01/11/19 06:59 06:59 06:59 Intake Total 1590 2832 706 Output Total 2725 1200 Balance -1135 1632 706 Weight 84.1 kg 84.4 kg Results Laboratory Results: 01/10/19 05:00 01/10/19 05:00 01/10/19 01/10/19 05:00 05:00 WBC 11.4 H RBC 3.99 L Hgb 12.4 L Hct 36.7 L MCV 92 MCH 31.2 MCHC 34.0 RDW 13.4 Plt Count 230 Sodium 138.7 Potassium 4.2 Chloride 109 H Carbon Dioxide 23 Anion Gap 7 BUN 23 H Creatinine 0.60 Est GFR ( Amer) > 60 Est GFR (Non-Af Amer) > 60 Glucose 113 H Calcium 9.1 Phosphorus 4.1 Magnesium 1.8 Total Bilirubin 0.8 AST 18 ALT 61 Alkaline Phosphatase 68 Total Protein 5.3 L Albumin 3.0 L 12/31/18 12/31/18 01/01/19 08:45 08:45 05:18 Creatine Kinase 8363 H 6942 H CK-MB (CK-2) 18.40 H Troponin I < 0.012 01/02/19 01/08/19 04:12 04:15 Creatine Kinase 2143 H 108 CK-MB (CK-2) Troponin I Impressions: Abdomen/Pelvis CT 12/31/18 00:00 IMPRESSION: Right lower lobe pneumonia. No acute finding in the abdomen or pelvis. Osseous findings as described Head CT 12/31/18 09:02 IMPRESSION: NORMAL BRAIN CT WITHOUT CONTRAST. EVIDENCE OF ACUTE STROKE: NO. Head MRI 12/31/18 12:55 IMPRESSION: NORMAL MRI OF THE BRAIN WITHOUT INTRAVENOUS GADOLINIUM CONTRAST. EVIDENCE OF ACUTE STROKE: NO. Guidance Fluoroscopy 01/01/19 00:00 IMPRESSION: Lumbar puncture under fluoroscopy. No immediate complication. Lumbar Puncture 01/01/19 00:00 IMPRESSION: Lumbar puncture under fluoroscopy. No immediate complication. Chest X-Ray 01/08/19 06:00 IMPRESSION: NO ACUTE RADIOGRAPHIC FINDING IN THE CHEST. Assessment and Plan - Diagnosis (1) Probable septic meningitis Is this a current diagnosis for this admission?: Yes Plan: CSF -negative culture and negative serology for HSV Patient is still demonstrating symptoms of AMS and confusion Continue acyclovir (2) Acute metabolic encephalopathy Is this a current diagnosis for this admission?: Yes Plan: Encephalopathy is multifactorial -possibly due to viral meningitis versus chronic EtOH use and withdrawal versus prolonged exposure to sedation EEG showed diffuse abnormality without evidence of epilepsy Continue to monitor with every shift neuro assessments Head CT and MRI WNL, no neuro pathology Limit sedating medications -narcotics, benzodiazepines, etc (3) Acute kidney injury Is this a current diagnosis for this admission?: Yes Plan: Resolved (4) Leukocytosis Is this a current diagnosis for this admission?: Yes Plan: Relatively unchanged Leukocytosis likely secondary to suspected meningitis WBC basically unchanged (11.2-->11.4) from yesterday Afebrile Other than confusion, relatively nontoxic-appearing Continue with daily CBC (5) Alcohol abuse Is this a current diagnosis for this admission?: Yes Plan: Patient admits to drinking 12 beers per day He is 9-10 days since his last drink PRN Ativan and Haldol for agitation/withdrawal Daily p.o. thiamine and folate Patient requesting information for alcohol rehab Referred to case management (6) Hypernatremia Is this a current diagnosis for this admission?: Yes Plan: Resolved (7) Rhabdomyolysis Qualifiers: Rhabdomyolysis type: traumatic Encounter type: initial encounter Quali fied Code(s): T79.6XXA - Traumatic ischemia of muscle, initial encounter Is this a current diagnosis for this admission?: Yes Plan: Resolved Patient found down at home, unknown downtime Initial CK over 1999 Treated with IVF - Time Time Spent with patient: 15-24 minutes Medications reviewed and adjusted accordingly: Yes Anticipated discharge: Acute Rehab Within: within 36 hours - Inpatient Certification Based on my medical assessment, after consideration of the patient's comorbidities, presenting symptoms, or acuity I expect that the services needed warrant INPATIENT care.: Yes I certify that my determination is in accordance with my understanding of Medic are's requirements for reasonable and necessary INPATIENT services [42 CFR 412.3e].: Yes Medical Necessity: Risk of Complication if Not Cared For in Hospital
[2019-01-11 04:26] LABS: HEMATOCRIT 40.7 % (37.9-51.0); HEMOGLOBIN 13.6 g/dL (13.5-17.0); MEAN CORPUSCULAR HEMOGLOBIN 31.4 pg (27.0-33.4); MEAN CORPUSCULAR HGB CONC 33.6 g/dL (32.0-36.0); MEAN CORPUSCULAR VOLUME 94 fl (80-97); PLATELET COUNT 262 10^3/uL (150-450); RED BLOOD COUNT 4.35 10^6/uL (4.35-5.55); WHITE BLOOD COUNT 12.4 10^3/uL (4.0-10.5)
[2019-01-11 04:50] LABS: ALANINE AMINOTRANSFERASE 55 U/L (21-72); ALBUMIN 3.4 g/dL (3.5-5.0); ALKALINE PHOSPHATASE 76 U/L (38-126); ANION GAP 9 (5-19); ASPARTATE AMINO TRANSFERASE 19 U/L (17-59); BILIRUBIN,DIRECT 0.3 mg/dL (0.0-0.4); BILIRUBIN,TOTAL 0.6 mg/dL (0.2-1.3); BLOOD UREA NITROGEN 22 mg/dL (7-20); CALCIUM 9.5 mg/dL (8.4-10.2); CARBON DIOXIDE 27 mmol/L (22-30); CHLORIDE 105 mmol/L (98-107); GLUCOSE 92 mg/dL (75-110); PHOSPHORUS 4.6 mg/dL (2.5-4.5); POTASSIUM 4.4 mmol/L (3.6-5.0); SODIUM 140.6 mmol/L (137-145)
[2019-01-11] MEDS: SERTRALINE HCL 50 MG TABLET PO SCH (09:06)
[2019-01-11] MEDS: VENLAFAXINE HCL 37.5 MG CAP.SR.24H PO SCH (09:06)
[2019-01-11] MEDS: HEPARIN SOD (PORCINE) 5,000 UNIT/ML 1 ML SYRINGE SUBCUT SCH ×2 (09:06→21:20)
[2019-01-11] MEDS: SUCRALFATE 1 GM TABLET PO SCH ×4 (09:06→21:20)
[2019-01-11] MEDS: METOPROLOL TARTRATE 50 MG TABLET PO SCH ×3 (09:06→21:20)
[2019-01-11] MEDS: DEXAMETHASONE SOD PHOSPHATE INJ 4 MG/1 ML VIAL IV SCH (09:07)
--- NOTE | 2019-01-11 11:38 | PDOC PROGRESS REPORT ---
Subjective Progress Note for:: 01/11/19 Subjective:: NASH MORAN is a 58 year old male with a past medical history of COPD, hypertension, currently being worked up for possible rheumatoid arthritis and chronic alcohol abuse who was brought in due to AMS believed to be related to acute alcohol intoxication. The patient was intubated for airway protection due to altered mental status. He was extubated yesterday and transferred from ICU to [facility]. Patient was seen this morning on rounds, is at the bedside. The patient is resting comfortably in bed, the nurse reports the patient was able to ambulate with the walker in his room without difficulty. He is alert and oriented x3. The patient is very lucid today, he does not make any paranoid delusion statements. states the patient will still make paranoid statements regarding a specific nurse in the ICU when medical staff is not in the room. Patient states there is a particular ICU nurse who he believes told him she would throw him off the roof. Will continue working with PT/OT. Plan to send patient to acute rehab in 24 to 48 hours, Discussed with discharge planning who will help find placement. Reason For Visit: ACUTE ENCEPHALOPATHY,ACUTE RENAL FAILURE, Physical Exam Vital Signs: Temp Pulse Resp BP Pulse Ox 97.6 F 58 L 16 113/57 L 99 01/11/19 07:34 01/11/19 07:34 01/11/19 07:34 01/11/19 07:34 01/11/19 07:34 Intake & Output 01/10/19 01/11/19 01/12/19 06:59 06:59 06:59 Intake Total 2832 1974 Output Total 1200 875 Balance 1632 1099 Weight 84.4 kg 85.1 kg General appearance: PRESENT: no acute distress, well-developed, well-nourished Eye exam: PRESENT: conjunctiva pink, PERRLA Mouth exam: PRESENT: moist, tongue midline Neck exam: PRESENT: full ROM Respiratory exam: PRESENT: clear to auscultation mandi, symmetrical, unlabored Cardiovascular exam: PRESENT: RRR Pulses: PRESENT: normal radial pulses Vascular exam: PRESENT: normal capillary refill GI/Abdominal exam: PRESENT: soft. ABSENT: distended, tenderness Rectal exam: PRESENT: deferred Extremities exam: PRESENT: full ROM. ABSENT: pedal edema Musculoskeletal exam: PRESENT: ambulatory - with walker, full ROM, normal inspection. ABSENT: deformity Neurological exam: PRESENT: alert, awake, oriented to person, oriented to place, oriented to time, oriented to situation Psychiatric exam: PRESENT: appropriate affect. ABSENT: homicidal ideation, suicidal ideation Skin exam: PRESENT: dry, intact, normal color Results Laboratory Results: 01/11/19 04:02 01/11/19 04:02 01/11/19 01/11/19 04:02 04:02 WBC 12.4 H RBC 4.35 Hgb 13.6 Hct 40.7 MCV 94 MCH 31.4 MCHC 33.6 RDW 14.0 Plt Count 262 Sodium 140.6 Potassium 4.4 Chloride 105 Carbon Dioxide 27 Anion Gap 9 BUN 22 H Creatinine 0.68 Est GFR ( Amer) > 60 Est GFR (Non-Af Amer) > 60 Glucose 92 Calcium 9.5 Phosphorus 4.6 H Magnesium 1.9 Total Bilirubin 0.6 AST 19 ALT 55 Alkaline Phosphatase 76 Total Protein 6.0 L Albumin 3.4 L 12/31/18 12/31/18 01/01/19 08:45 08:45 05:18 Creatine Kinase 8363 H 6942 H CK-MB (CK-2) 18.40 H Troponin I < 0.012 01/02/19 01/08/19 04:12 04:15 Creatine Kinase 2143 H 108 CK-MB (CK-2) Troponin I Impressions: Abdomen/Pelvis CT 12/31/18 00:00 IMPRESSION: Right lower lobe pneumonia. No acute finding in the abdomen or pe lvis. Osseous findings as described Head CT 12/31/18 09:02 IMPRESSION: NORMAL BRAIN CT WITHOUT CONTRAST. EVIDENCE OF ACUTE STROKE: NO. Head MRI 12/31/18 12:55 IMPRESSION: NORMAL MRI OF THE BRAIN WITHOUT INTRAVENOUS GADOLINIUM CONTRAST. EVIDENCE OF ACUTE STROKE: NO. Guidance Fluoroscopy 01/01/19 00:00 IMPRESSION: Lumbar puncture under fluoroscopy. No immediate complication. Lumbar Puncture 01/01/19 00:00 IMPRESSION: Lumbar puncture under fluoroscopy. No immediate complication. Chest X-Ray 01/08/19 06:00 IMPRESSION: NO ACUTE RADIOGRAPHIC FINDING IN THE CHEST. Status: Imported from PACS Assessment and Plan - Diagnosis (1) Probable septic meningitis Is this a current diagnosis for this admission?: Yes Plan: CSF - negative culture and negative serology for HSV Patient is still demonstrating symptoms of AMS and confusion Continue acyclovir (2) Acute metabolic encephalopathy Is this a current diagnosis for this admission?: Yes Plan: Encephalopathy is multifactorial -possibly due to viral meningitis versus chronic EtOH use and withdrawal versus prolonged exposure to sedation EEG showed diffuse abnormality without evidence of epilepsy Continue to monitor with every shift neuro assessments Head CT and MRI WNL, no neuro pathology Limit sedating medications -narcotics, benzodiazepines, etc (3) Acute kidney injury Is this a current diagnosis for this admission?: Yes Plan: Resolved (4) Leukocytosis Is this a current diagnosis for this admission?: Yes Plan: Relatively unchanged Leukocytosis likely secondary to suspected meningitis WBC increased slightly (11.4-->12) from yesterday Afebrile Other than confusion, relatively nontoxic-appearing Continue with daily CBC (5) Alcohol abuse Is this a current diagnosis for this admission?: Yes Plan: Patient admits to drinking 12 beers per day He is nearly 2 weeks since his last drink PRN Ativan and Haldol for agitation/withdrawal Daily p.o. thiamine and folate Plan for patient to attend [facility] following inpatient rehab Referred to case management (6) Hypernatremia Is this a current diagnosis for this admission?: Yes Plan: Resolved (7) Rhabdomyolysis Qualifiers: Rhabdomyolysis type: traumatic Encounter type: initial encounter Qualified Code(s): T79.6XXA - Traumatic ischemia of muscle, initial encounter Is this a current diagnosis for this admission?: Yes Plan: Resolved Patient found down at home, unknown downtime Initial CK over 1999 Treated with IVF (8) Paranoia Is this a current diagnosis for this admission?: Yes Plan: Per , the patient has made statements that he believes an ICU nurse threatened him and said she would throw him off the roof The patient is fixated on this one delusion He denies visual or auditory hallucinations states the patient is not having additional delusions, this is the only one The patient is otherwise completely appropriate PSYCH evaluated the patient and made medication recommendations - Time Time Spent with patient: 15-24 minutes Medications reviewed and adjusted accordingly: Yes Anticipated discharge: Acute Rehab Within: within 48 hours - Inpatient Certification Based on my medical assessment, after consideration of the patient's comorbidities, presenting symptoms, or acuity I expect that the services needed warrant INPATIENT care.: Yes I certify that my determination is in accordance with my understanding of Medicare's requirements for reasonable and necessary INPATIENT services [42 CFR 412.3e].: Yes Medical Necessity: Need Close Monitoring Due to Risk of Patient Decompensation, Risk of Complication if Not Cared For in Hospital - Plan Summary Plan Summary: PLAN TO SEND TO ACUTE REHAB FOLLOWING [facility], THE TO INPATIENT REHAB AT [facility]
[2019-01-11] MEDS: ACETAMINOPHEN 325 MG TABLET PO PRN (12:49)
[2019-01-11] MEDS: CLONAZEPAM 1 MG TABLET PO SCH (21:21)
[2019-01-12] MEDS: SUCRALFATE 1 GM TABLET PO SCH ×4 (08:59→22:21)
[2019-01-12] MEDS: VENLAFAXINE HCL 37.5 MG CAP.SR.24H PO SCH (11:10)
[2019-01-12] MEDS: HEPARIN SOD (PORCINE) 5,000 UNIT/ML 1 ML SYRINGE SUBCUT SCH ×2 (11:10→22:20)
[2019-01-12] MEDS: SERTRALINE HCL 50 MG TABLET PO SCH (11:10)
[2019-01-12] MEDS: METOPROLOL TARTRATE 50 MG TABLET PO SCH ×2 (11:10→22:21)
[2019-01-12] MEDS: DEXAMETHASONE SOD PHOSPHATE INJ 4 MG/1 ML VIAL IV SCH (11:10)
--- NOTE | 2019-01-12 16:48 | PDOC PROGRESS REPORT ---
Subjective Progress Note for:: 01/12/19 Subjective:: NASH MORAN is a 58 year old male with a past medical history of COPD, hypertension, currently being worked up for possible rheumatoid arthritis and chronic alcohol abuse who was brought in due to AMS believed to be related to acute alcohol intoxication. The patient was intubated for airway protection due to altered mental status. He was extubated yesterday and transferred from ICU to [facility]. Patient was seen this morning on rounds, is at the bedside. The patient is resting comfortably in bed. He is alert and oriented x3. The patient is very lucid today, he does not make any paranoid delusion statements. Will continue working with PT/OT who still recommend acute rehab. Patient is able to ambulate with a walker. Plan to send patient to acute rehab in 24 to 48 hours. Following acute rehab, the patient intends to enroll in inpatient substance abuse rehab. Discussed with discharge planning who will help find placement. Reason For Visit: ACUTE ENCEPHALOPATHY,ACUTE RENAL FAILURE, Physical Exam Vital Signs: Temp Pulse Resp BP Pulse Ox 98.1 F 108 H 16 97/65 L 97 01/12/19 11:24 01/12/19 14:00 01/12/19 11:24 01/12/19 11:24 01/12/19 11:24 Intake & Output 01/11/19 01/12/19 01/13/19 06:59 06:59 06:59 Intake Total 1974 567 787 Output Total 875 Balance 1099 567 787 Weight 85.1 kg 84.5 kg General appearance: PRESENT: no acute distress, well-developed, well-nourished Head exam: PRESENT: atraumatic, normocephalic Eye exam: PRESENT: conjunctiva pink, EOMI, PERRLA. ABSENT: scleral icterus Ear exam: PRESENT: normal external ear exam Mouth exam: PRESENT: moist, tongue midline Neck exam: ABSENT: carotid bruit, JVD, lymphadenopathy, thyromegaly Respiratory exam: PRESENT: clear to auscultation mandi. ABSENT: rales, rhonchi, wheezes Cardiovascular exam: PRESENT: RRR. ABSENT: diastolic murmur, rubs, systolic murmur Pulses: PRESENT: normal dorsalis pedis pul Vascular exam: PRESENT: normal capillary refill GI/Abdominal exam: PRESENT: normal bowel sounds, soft. ABSENT: distended, guarding, mass, organolmegaly, rebound, tenderness Rectal exam: PRESENT: deferred Extremities exam: PRESENT: full ROM. ABSENT: calf tenderness, clubbing, pedal edema Neurological exam: PRESENT: alert, awake, oriented to person, oriented to place, oriented to time, oriented to situation. ABSENT: normal gait - Ambulates with walker. (+) unsteady gait Psychiatric exam: PRESENT: appropriate affect, normal mood. ABSENT: homicidal ideation, suicidal ideation Skin exam: PRESENT: dry, intact, warm. ABSENT: cyanosis, rash Results Laboratory Results: 01/11/19 04:02 01/11/19 04:02 12/31/18 12/31/18 01/01/19 08:45 08:45 05:18 Creatine Kinase 8363 H 6942 H CK-MB (CK-2) 18.40 H Troponin I < 0.012 01/02/19 01/08/19 04:12 04:15 Creatine Kinase 2143 H 108 CK-MB (CK-2) Troponin I Impressions: Abdomen/Pelvis CT 12/31/18 00:00 IMPRESSION: Right lower lobe pneumonia. No acute finding in the abdomen or pelvis. Osseous findings as described Head CT 12/31/18 09:02 IMPRESSION: NORMAL BRAIN CT WITHOUT CONTRAST. EVIDENCE OF ACUTE STROKE: NO. Head MRI 12/31/18 12:55 IMPRESSION: NORMAL MRI OF THE BRAIN WITHOUT INTRAVENOUS GADOLINIUM CONTRAST. EVIDENCE OF ACUTE STROKE: NO. Guidance Fluoroscopy 01/01/19 00:00 IMPRESSION: Lumbar puncture under fluoroscopy. No immediate complication. Lumbar Puncture 01/01/19 00:00 IMPRESSION: Lumbar puncture under fluoroscopy. No immediate complication. Chest X-Ray 01/08/19 06:00 IMPRESSION: NO ACUTE RADIOGRAPHIC FINDING IN THE CHEST. Status: Imported from PACS Assessment and Plan - Diagnosis (1) Probable septic meningitis Is this a current diagnosis for this admission?: Yes Plan: CSF - negative culture and negative serology for HSV Patient is still demonstrating symptoms of AMS and confusion Continue acyclovir (2) Acute metabolic encephalopathy Is this a current diagnosis for this admission?: Yes Plan: Encephalopathy is multifactorial -possibly due to viral meningitis versus chronic EtOH use and withdrawal versus prolonged exposure to sedation EEG showed diffuse abnormality without evidence of epilepsy Continue to monitor with every shift neuro assessments Head CT and MRI WNL, no neuro pathology Limit sedating medications -narcotics, benzodiazepines, etc (3) Acute kidney injury Is this a current diagnosis for this admission?: Yes Plan: Resolved (4) Leukocytosis Is this a current diagnosis for this admission?: Yes Plan: Relatively unchanged Leukocytosis likely secondary to suspected meningitis WBC increased slightly (11.4-->12) from yesterday Afebrile Other than confusion, relatively nontoxic-appearing Continue with daily CBC (5) Alcohol abuse Is this a current diagnosis for this admission?: Yes Plan: Patient admits to drinking 12 beers per day Chronic ETOH use for 30 years He is nearly 2 weeks since his last drink PRN Ativan and Haldol for agitation/withdrawal Daily p.o. thiamine and folate Plan for patient to attend [facility] following inpatient rehab Referred to case management (6) Hypernatremia Is this a current diagnosis for this admission?: Yes Plan: Resolved (7) Rhabdomyolysis Qualifiers: Rhabdomyolysis type: traumatic Encounter type: initial encounter Qualified Code(s): T79.6XXA - Traumatic ischemia of muscle, initial encounter Is this a current diagnosis for this admission?: Yes Plan: Resolved Patient found down at home, unknown downtime Initial CK over 1999 Treated with IVF (8) Paranoia Is this a current diagnosis for this admission?: Yes Plan: RESOLVED No more paranoid statements Per , the patient has made statements that he believes an ICU nurse threatened him and said she would throw him off the roof The patient is fixated on this one delusion He denies visual or auditory hallucinations states the patient is not having additional delusions, this is the only one The patient is otherwise completely appropriate PSYCH evaluated the patient and made medication recommendations - Time Time Spent with patient: 15-24 minutes Medications reviewed and adjusted accordingly: Yes Anticipated discharge: Acute Rehab Within: within 24 hours - Inpatient Certification Based on my medical assessment, after consideration of the patient's comorbidities, presenting symptoms, or acuity I expect that the services needed warrant INPATIENT care.: Yes I certify that my determination is in accordance with my understanding of Medicare's requirements for reasonable and necessary INPATIENT services [42 CFR 412.3e].: Yes Medical Necessity: Need For Continuous Telemetry Monitoring, Risk of Complication if Not Cared For in Hospital
[2019-01-12] MEDS: CLONAZEPAM 1 MG TABLET PO SCH (22:20)
[2019-01-13] MEDS: SUCRALFATE 1 GM TABLET PO SCH ×4 (08:33→21:41)
[2019-01-13] MEDS: PREDNISONE 10 MG TABLET PO SCH (09:25)
[2019-01-13] MEDS: METOPROLOL TARTRATE 50 MG TABLET PO SCH ×2 (09:25→21:41)
[2019-01-13] MEDS: HEPARIN SOD (PORCINE) 5,000 UNIT/ML 1 ML SYRINGE SUBCUT SCH ×2 (09:25→21:40)
[2019-01-13] MEDS: SERTRALINE HCL 50 MG TABLET PO SCH (09:25)
[2019-01-13] MEDS: VENLAFAXINE HCL 37.5 MG CAP.SR.24H PO SCH (09:25)
--- NOTE | 2019-01-13 14:56 | PDOC TRANSFER SUMMARY ---
General - Admit/Disc Date/PCP Admission Date/Primary Care Provider: 12/31/18 12:35 DORETHA CAMPOS MD Discharge Date: 01/14/19 - Discharge Diagnosis (1) Acute kidney injury Is this a current diagnosis for this admission?: Yes Summary: Resolved; prerenal. Creatinine has returned to baseline of 0.60. (2) Acute metabolic encephalopathy Is this a current diagnosis for this admission?: Yes Summary: Nearing baseline. Encephalopathy is multifactorial -possibly due to viral meningitis versus chronic EtOH use and withdrawal versus prolonged exposure to sedation EEG showed diffuse abnormality without evidence of epilepsy Head CT and MRI WNL, no neuro pathology (3) Alcohol abuse Is this a current diagnosis for this admission?: Yes Summary: Patient admits to drinking 12 beers per day Chronic ETOH use for 30 years; nearly 2 weeks since his last drink Patient was provided PRN Ativan and Haldol for agitation/withdrawal. He has been started on daily p.o. thiamine and folate; recommend to continue supplements post-discharge. Patient intends to attend [facility] following inpatient rehab (4) Hypernatremia Is this a current diagnosis for this admission?: Yes Summary: Resolved (5) Leukocytosis Is this a current diagnosis for this admission?: Yes Summary: Leukocytosis likely secondary to suspected meningitis. Possible related to IV steroids; have transitioned to p.o. prednisone for jori off steroids. WBC stable (11.4-->12). Patient remains afebrile and nontoxic-appearing. Blood cultures negative at 5 days. CSF fluid has no growth at 3 days. Wound culture shows nml skin adilia. No indications for continued antibiotics at this time. (6) Paranoia Is this a current diagnosis for this admission?: Yes Summary: Resolved. Secondary to acute metabolic encephalopathy, viral meningitis, ICU psychosis and/or steroid therapy. Mental health services were consulted; recommended decreasing Zoloft to 50 mg daily and adding Effexor 37.5 mg daily. (7) Probable septic meningitis Is this a current diagnosis for this admission?: Yes Summary: CSF - negative culture and negative serology for HSV Patient is still demonstrating symptoms of AMS and confusion; although this may be related to his chronic EtOH abuse. Patient was empirically treated with IV Rocephin, Vancomycin, and Acyclovir. (8) Rhabdomyolysis Is this a current diagnosis for this admission?: Yes Summary: Resolved Patient found down at home, unknown downtime Initial CK over 1999 Treated with IVF - Additional Information Resuscitation Status: Full Code Home Medications: Amlodipine Besylate/Benazepril [Amlodipine-Benazepril 10-40 mg] 1 cap PO DAILY 04/25/17 Clonazepam 0.5 mg PO DAILY 04/25/17 Budesonide/Formoterol Fumarate [Symbicort Hfa 160-4.5 Mcg Inhaler 6 gm] 1 puff IH Q12 12/31/18 Fluticasone/Vilanterol [Breo 200-25 Mcg Ellipta 14 Dose/Dpi] 1 inh IH Q12 12/31/18 Naproxen/Esomeprazole Mag [Vimovo Dr 500-20 mg Tablet] 1 each PO Q12 12/31/18 Sertraline HCl [Zoloft 50 mg Tablet] 150 mg PO DAILY 12/31/18 Tiotropium [place] [Spiriva Respimat] 1 puff IH BID 12/31/18 Trazodone HCl [Desyrel 50 mg Tablet] 100 mg PO QHS 12/31/18 History of Present Illness Admission Date/PCP: 12/31/18 12:35 DORETHA CAMPOS MD History of Present Illness: Per H&P by Dr. Taveras: NASH MORAN is a 58 year old male with a past medical history of COPD, hypertension, currently being worked up for possible rheumatoid arthritis and chronic alcohol abuse who was brought in due to acute confusion. Patient is on bedside. Patient was reportedly fine yesterday until last night when he reportedly complained that his these were hurting. He was then reported to be having an episode of confusion last night. This morning, patient was found on the floor minimally responsive and was also noted to be confused. EMS was called and he was noted to be very agitated and required multiple doses of ketamine. In the ER he was given p.o. doses of ketamine. His initial head CT is unremarkable. BMP is remarkable for acute renal failure and rhabdomyolysis. Multiple attempts to do a lumbar puncture by radiology where unsuccessful unfortunately. Patient's says that he only drinks 4 beers a day. However another family member did report that he drinks at least 10 cans of beer a day and that patient also uses amphetamine from time to time and after unrecalled recreational drugs. Nobody is able to determine when his last alcohol intake was. UDS and alcohol levels are unremarkable. Family denies any recent fever or chills. On encounter he appears to have a mild left facial droop which the family says they have noticed for 40 minutes prior to this encounter. Physical Exam Vital Signs: Temp Pulse Resp BP Pulse Ox 97.6 F 83 16 103/62 97 01/13/19 09:38 01/13/19 14:00 01/13/19 11:49 01/13/19 11:49 01/13/19 11:49 Intake & Output 01/12/19 01/13/19 01/14/19 06:59 06:59 06:59 Intake Total 567 1872 Balance 567 1872 Weight 84.5 kg 83.2 kg General appearance: PRESENT: no acute distress, cooperative, well-developed, well-nourished - Overweight Head exam: PRESENT: atraumatic, normocephalic Eye exam: PRESENT: conjunctiva pink, EOMI, PERRLA. ABSENT: scleral icterus Ear exam: PRESENT: normal external ear exam Mouth exam: PRESENT: moist, tongue midline Neck exam: ABSENT: carotid bruit, JVD, lymphadenopathy, thyromegaly Respiratory exam: PRESENT: clear to auscultation mandi, symmetrical, unlabored. ABSENT: rales, rhonchi, wheezes Cardiovascular exam: PRESENT: RRR, +S1, +S2. ABSENT: diastolic murmur, rubs, systolic murmur Pulses: PRESENT: normal dorsalis pedis pul Vascular exam: PRESENT: normal capillary refill GI/Abdominal exam: PRESENT: normal bowel sounds, soft. ABSENT: distended, guarding, mass, organolmegaly, rebound, tenderness Rectal exam: PRESENT: deferred Extremities exam: PRESENT: full ROM. ABSENT: calf tenderness, clubbing, pedal edema Musculoskeletal exam: PRESENT: ambulatory - With walker and unsteady gait; somewhat impulsive Neurological exam: PRESENT: alert, awake, oriented to person, oriented to place, oriented to time, oriented to situation, CN II-XII grossly intact, other - Repetitive. ABSENT: motor sensory deficit Psychiatric exam: PRESENT: appropriate affect, normal mood. ABSENT: homicidal ideation, suicidal ideation Skin exam: PRESENT: dry, intact, warm. ABSENT: cyanosis, rash Results Laboratory Results: 01/11/19 04:02 01/11/19 04:02 12/31/18 12/31/18 01/01/19 08:45 08:45 05:18 Creatine Kinase 8363 H 6942 H CK-MB (CK-2) 18.40 H Troponin I < 0.012 01/02/19 01/08/19 04:12 04:15 Creatine Kinase 2143 H 108 CK-MB (CK-2) Troponin I Impressions: Abdomen/Pelvis CT 12/31/18 00:00 IMPRESSION: Right lower lobe pneumonia. No acute finding in the abdomen or pelvis. Osseous findings as described Head CT 12/31/18 09:02 IMPRESSION: NORMAL BRAIN CT WITHOUT CONTRAST. EVIDENCE OF ACUTE STROKE: NO. Head MRI 12/31/18 12:55 IMPRESSION: NORMAL MRI OF THE BRAIN WITHOUT INTRAVENOUS GADOLINIUM CONTRAST. EVIDENCE OF ACUTE STROKE: NO. Guidance Fluoroscopy 01/01/19 00:00 IMPRESSION: Lumbar puncture under fluoroscopy. No immediate complication. Lumbar Puncture 01/01/19 00:00 IMPRESSION: Lumbar puncture under fluoroscopy. No immediate complication. Chest X-Ray 01/08/19 06:00 IMPRESSION: NO ACUTE RADIOGRAPHIC FINDING IN THE CHEST. Transfer Plan - Disposition Transfer Plan: Discharge to SNF for short-term rehab. - Time Spent with Patient Time spent with patient: Less than 30 Minutes Qualifiers - * PATIENT BEING DISCHARGED WITH ANY OF THE FOLLOWING DIAGNOSIS: No Acute Heart Failure Is this a Heart Failure Patient?: No Plan Discharge Plan: Discharge to SNF for short-term rehab; follow-up inpatient alcohol abuse rehabilitation [facility] is desired. Time Spent: Greater than 30 Minutes
[2019-01-13] MEDS: ACETAMINOPHEN 325 MG TABLET PO PRN (16:22)
[2019-01-13] MEDS: CLONAZEPAM 1 MG TABLET PO SCH (21:41)
[2019-01-14] MEDS: SUCRALFATE 1 GM TABLET PO SCH ×4 (10:03→22:34)
[2019-01-14] MEDS: HEPARIN SOD (PORCINE) 5,000 UNIT/ML 1 ML SYRINGE SUBCUT SCH ×2 (10:04→22:34)
[2019-01-14] MEDS: METOPROLOL TARTRATE 50 MG TABLET PO SCH ×2 (10:04→22:34)
[2019-01-14] MEDS: VENLAFAXINE HCL 37.5 MG CAP.SR.24H PO SCH (10:05)
[2019-01-14] MEDS: SERTRALINE HCL 50 MG TABLET PO SCH (10:05)
[2019-01-14] MEDS: PREDNISONE 10 MG TABLET PO SCH (10:05)
--- NOTE | 2019-01-14 20:59 | PDOC PROGRESS REPORT ---
Subjective Progress Note for:: 01/14/19 Subjective:: NASH MORAN is a 58 year old male with a past medical history of COPD, hypertension, currently being worked up for possible rheumatoid arthritis and chronic alcohol abuse who was brought in due to AMS believed to be related to acute alcohol intoxication. The patient was intubated for airway protection due to altered mental status. Patient was seen on afternoon rounds. He was found sitting up to the recliner, comfortably, on room air. He reports that he is feeling well today, but fatigued after working with physical therapy. He tells me he is hopeful to leave for rehab soon and confirms his intent to go to an inpatient treatment center following discharge from rehab. He denies fever, chills, headache, dizziness, chest pain, palpitations, dyspnea, orthopnea, cough, abdominal pain, nausea and vomiting. He has no other questions or concerns at this time. Reason For Visit: ACUTE ENCEPHALOPATHY,ACUTE RENAL FAILURE, Physical Exam Vital Signs: Temp Pulse Resp BP Pulse Ox 98.3 F 75 19 127/69 H 96 01/14/19 07:57 01/14/19 14:00 01/14/19 07:57 01/14/19 07:57 01/14/19 07:57 Intake & Output 01/13/19 01/14/19 01/15/19 06:59 06:59 06:59 Intake Total 1872 1290 690 Output Total 0 Balance 1872 1290 690 Weight 83.2 kg 85.3 kg General appearance: PRESENT: no acute distress, cooperative, obese, well- developed, well-nourished Head exam: PRESENT: atraumatic, normocephalic Eye exam: PRESENT: conjunctiva pink, EOMI, PERRLA. ABSENT: scleral icterus Ear exam: PRESENT: normal external ear exam Mouth exam: PRESENT: moist, tongue midline Neck exam: ABSENT: carotid bruit, JVD, lymphadenopathy, thyromegaly Respiratory exam: PRESENT: clear to auscultation mandi, symmetrical, unlabored. ABSENT: rales, rhonchi, wheezes Cardiovascular exam: PRESENT: RRR, +S1, +S2. ABSENT: diastolic murmur, rubs, systolic murmur Pulses: PRESENT: normal dorsalis pedis pul Vascular exam: PRESENT: normal capillary refill GI/Abdominal exam: PRESENT: normal bowel sounds, soft. ABSENT: distended, guarding, mass, organolmegaly, rebound, tenderness Rectal exam: PRESENT: deferred Extremities exam: PRESENT: full ROM. ABSENT: calf tenderness, clubbing, pedal edema Musculoskeletal exam: PRESENT: ambulatory - w/ front wheeled walker; unsteady gait Neurological exam: PRESENT: alert, awake, oriented to person, oriented to place, oriented to time, oriented to situation, CN II-XII grossly intact. ABSENT: motor sensory deficit Psychiatric exam: PRESENT: appropriate affect, normal mood. ABSENT: homicidal ideation, suicidal ideation Skin exam: PRESENT: dry, intact, warm. ABSENT: cyanosis, rash Results Laboratory Results: 01/11/19 04:02 01/11/19 04:02 12/31/18 12/31/18 01/01/19 08:45 08:45 05:18 Creatine Kinase 8363 H 6942 H CK-MB (CK-2) 18.40 H Troponin I < 0.012 01/02/19 01/08/19 04:12 04:15 Creatine Kinase 2143 H 108 CK-MB (CK-2) Troponin I Impressions: Abdomen/Pelvis CT 12/31/18 00:00 IMPRESSION: Right lower lobe pneumonia. No acute finding in the abdomen or pelvis. Osseous findings as described Head CT 12/31/18 09:02 IMPRESSION: NORMAL BRAIN CT WITHOUT CONTRAST. EVIDENCE OF ACUTE STROKE: NO. Head MRI 12/31/18 12:55 IMPRESSION: NORMAL MRI OF THE BRAIN WITHOUT INTRAVENOUS GADOLINIUM CONTRAST. EVIDENCE OF ACUTE STROKE: NO. Guidance Fluoroscopy 01/01/19 00:00 IMPRESSION: Lumbar puncture under fluoroscopy. No immediate complication. Lumbar Puncture 01/01/19 00:00 IMPRESSION: Lumbar puncture under fluoroscopy. No immediate complication. Chest X-Ray 01/08/19 06:00 IMPRESSION: NO ACUTE RADIOGRAPHIC FINDING IN THE CHEST. Assessment and Plan - Diagnosis (1) Acute kidney injury Is this a current diagnosis for this admission?: Yes Plan: Resolved (2) Acute metabolic encephalopathy Is this a current diagnosis for this admission?: Yes Plan: Resolved. Encephalopathy is multifactorial -possibly due to viral meningitis versus chronic EtOH use and withdrawal versus prolonged exposure to sedation EEG showed diffuse abnormality without evidence of epilepsy Continue to monitor with every shift neuro assessments Head CT and MRI WNL, no neuro pathology Limit sedating medications -narcotics, benzodiazepines, etc (3) Alcohol abuse Is this a current diagnosis for this admission?: Yes Plan: Patient admits to drinking 12 beers per day Chronic ETOH use for 30 years PRN Ativan and Haldol for agitation/withdrawal Continue daily p.o. thiamine and folate Plan for patient to attend [facility] following inpatient rehab Referred to case management (4) Hypernatremia Is this a current diagnosis for this admission?: Yes Plan: Resolved (5) Leukocytosis Is this a current diagnosis for this admission?: Yes Plan: Stable; 11.4-->12 Afebrile, nontoxic appearing, negative cultures. No indications for continued antibiotics. Will monitor for development of specific s/sx of infection to prompt antibiotic treatment. (6) Paranoia Is this a current diagnosis for this admission?: Yes Plan: Resolved. PSYCH evaluated the patient and made medication recommendations (7) Probable septic meningitis Is this a current diagnosis for this admission?: Yes Plan: Resolved. CSF - negative culture and negative serology for HSV Have completed course of antibiotics; acyclovir is discontinued. (8) Rhabdomyolysis Qualifiers: Rhabdomyolysis type: traumatic Encounter type: initial encounter Qualified Code(s): T79.6XXA - Traumatic ischemia of muscle, initial encounter Is this a current diagnosis for this admission?: Yes Plan: Resolved Patient found down at home, unknown downtime Initial CK over 1999 Treated with IVF - Time Time Spent with patient: Less than 15 minutes Medications reviewed and adjusted accordingly: Yes Anticipated discharge: SNF Within: when bed available
[2019-01-14] MEDS: CLONAZEPAM 1 MG TABLET PO SCH (22:34)
[2019-01-15] MEDS: SUCRALFATE 1 GM TABLET PO SCH ×3 (08:00→16:29)
[2019-01-15] MEDS: SERTRALINE HCL 50 MG TABLET PO SCH (09:41)
[2019-01-15] MEDS: VENLAFAXINE HCL 37.5 MG CAP.SR.24H PO SCH (09:41)
[2019-01-15] MEDS: PREDNISONE 10 MG TABLET PO SCH (09:42)
[2019-01-15] MEDS: HEPARIN SOD (PORCINE) 5,000 UNIT/ML 1 ML SYRINGE SUBCUT SCH (09:42)
[2019-01-15] MEDS: METOPROLOL TARTRATE 50 MG TABLET PO SCH (09:43)
[2019-01-15 15:42] VITALS: BP 106/56
== END 2019-01-15 18:23 | DRG 682 ==
LOC: ER 08:54 → EH 12:35 → ICU 23:00 → 3N 01-08 03:05
PROVIDERS: ADMIT Internal Medicine; ATTEND Internal Medicine
PROC: 00JU3ZZ Inspection of Spinal Canal, Percutaneous Approach (ICD-10-PCS; principal; 2018-12-31)
PROC: 0BH17EZ Insertion of Endotracheal Airway into Trachea, Via Natural or Artificial Opening (ICD-10-PCS; 2018-12-31)
PROC: 5A1955Z Respiratory Ventilation, Greater than 96 Consecutive Hours (ICD-10-PCS; 2018-12-31)
PROC: 009U3ZX Drainage of Spinal Canal, Percutaneous Approach, Diagnostic (ICD-10-PCS; 2019-01-01)
PROC: B01BZZZ Fluoroscopy of Spinal Cord (ICD-10-PCS; 2019-01-01)
DX: N17.9 Acute kidney failure, unspecified (principal); G00.9 Bacterial meningitis, unspecified; J18.9 Pneumonia, unspecified organism; G93.41 Metabolic encephalopathy; E87.0 Hyperosmolality and hypernatremia; M62.82 Rhabdomyolysis; F10.239 Alcohol dependence with withdrawal, unspecified; I10 Essential (primary) hypertension; J44.9 Chronic obstructive pulmonary disease, unspecified; K21.9 Gastro-esophageal reflux disease without esophagitis; E86.0 Dehydration; F22 Delusional disorders; M06.9 Rheumatoid arthritis, unspecified; F17.210 Nicotine dependence, cigarettes, uncomplicated; Y90.0 Blood alcohol level of less than 20 mg/100 ml; Z79.51 Long term (current) use of inhaled steroids; Z79.899 Other long term (current) drug therapy
CPT/HCPCS: 31500; 36415; 36600; 62270; 70450; 70551; 71045; 74176; 77003; 80048; 80053; 80202; 80307; 81001; 82140; 82271; 82375; 82550; 82553; 82565; 82803; 82945; 82962; 83605; 83735; 83930; 84100; 84157; 84478; 84484; 85025; 85027; 85610; 87040; 87070; 87205; 87529; 89050; 93005; 93010; 94002; 94003; 94660; 94799; 95819; 96361; 96374; 96375; 96376; 99291; J0133; J0360; J0696; J1100; J1200; J1630; J1644; J2060; J2250; J2704; J3010; J3230; J3360; J3370; J3490; J7030; J7050; J7060; J7512; J7620; S0164

== ENCOUNTER 2019-11-21 14:00 | Emergency (ER) | payer BC, OTHER ==
[2019-11-21] MEDS ORDERED: KETOROLAC TROMETHAMINE INJ/PF 30 MG/1 ML SDV IV ONE (14:13)
[2019-11-21] MEDS ORDERED: ONDANSETRON HCL INJ/PF 4 MG/2 ML SDV IV ONE (14:14)
--- NOTE | 2019-11-21 14:15 | ER Document Report ---
ED Medical Screen (RME) - General Chief Complaint: Back Pain Stated Complaint: BACK PAIN,VOMITING Time Seen by Provider: 11/21/19 14:06 Primary Care Provider: DORETHA CAMPOS MD [Primary Care Provider] - Follow up as needed Mode of Arrival: Wheelchair Information source: Patient Notes: Patient is a 59-year-old male with multiple comorbidities presenting to the emergency department chief complaint of right flank pain that began 3 days ago. Patient reports that he has associated nausea, eating and drinking makes the pain worse. He denies the pain radiating anywhere, states it stays right over the right flank area. Denies any dysuria, urinary frequency or hematuria. He reports that he still has his gallbladder and has never had a kidney stone. He does report a history of chronic back pain, he states this feels nothing like his usual back pain and he feels much different which is why he came to the emergency department. Patient does not appear to be in any acute distress. Tenderness to palpation to right flank area. Abdomen soft, nontender. I have greeted and performed a rapid initial assessment of this patient. A comprehensive ED assessment and evaluation of the patient, analysis of test results and completion of the medical decision making process will be conducted by additional ED providers. I have specifically instructed the patient or fam clara members with the patient to immediately return to any nursing staff should anything change in the patient's condition or with their chief complaint. TRAVEL OUTSIDE OF THE [place] IN LAST 30 DAYS: No - Related Data Allergies/Adverse Reactions: No Known Allergies Allergy (Verified 11/21/19 14:07) Past Medical History - Past Medical History Cardiac Medical History: Reports: Hx Hypertension Pulmonary Medical History: Reports: Hx Asthma, Hx COPD Renal/ Medical History: Denies: Hx Peritoneal Dialysis Malignancy Medical History: Reports Hx Skin Cancer - face GI Medical History: Reports: Hx Gastroesophageal Reflux Disease Psychiatric Medical History: Reports: Hx Depression - Immunizations Immunizations up to date: Yes Hx Diphtheria, Pertussis, Tetanus Vaccination: Yes Doctor's Discharge - Discharge Referrals: DORETHA CAMPOS MD [Primary Care Provider] - Follow up as needed
--- NOTE | 2019-11-21 15:30 | ER Document Report ---
ED General - General Chief Complaint: Back Pain Stated Complaint: BACK PAIN,VOMITING Time Seen by Provider: 11/21/19 14:06 Primary Care Provider: DORETHA CAMPOS MD [Primary Care Provider] - Follow up as needed Mode of Arrival: Ambulatory Information source: Patient Notes: Patient presents with right flank pain for the past 3 days. Patient states pain is been off and on but worsened today. Patient states that pain is been steady today although occasionally becomes much more severe. Patient does complain of some nausea. No fever. Patient denies any urinary symptoms. Patient does have chronic back pain although states that this pain is different from his usual chronic back pain. TRAVEL OUTSIDE OF THE [place] IN LAST 30 DAYS: No - HPI Onset: Other - 3 days Onset/Duration: Worse Quality of pain: Sharp Pain Level: 3 Associated symptoms: Nausea. denies: Nonproductive cough, Productive cough, Yana rrhea, Fever, Vomiting Exacerbated by: Movement Relieved by: Denies Similar symptoms previously: No Recently seen / treated by doctor: No - Related Data Allergies/Adverse Reactions: No Known Allergies Allergy (Verified 11/21/19 14:07) Past Medical History - General Information source: Patient - Social History Smoking Status: Current Every Day Smoker Frequency of alcohol use: None Drug Abuse: None Lives with: Spouse/Significant other Family History: Reviewed & Not Pertinent Patient has suicidal ideation: No Patient has homicidal ideation: No - Past Medical History Cardiac Medical History: Reports: Hx Hypertension Pulmonary Medical History: Reports: Hx Asthma, Hx COPD Renal/ Medical History: Denies: Hx Peritoneal Dialysis Malignancy Medical History: Reports Hx Skin Cancer - face GI Medical History: Reports: Hx Gastroesophageal Reflux Disease Musculoskeletal Medical History: Reports Hx Arthritis Psychiatric Medical History: Reports: Hx Depression Surgical Hx: Negative - Immunizations Immunizations up to date: Yes Hx Diphtheria, Pertussis, Tetanus Vaccination: Yes Review of Systems - Review of Systems Constitutional: No symptoms reported. denies: Fever EENT: No symptoms reported Cardiovascular: No symptoms reported. denies: Chest pain Respiratory: No symptoms reported. denies: Cough, Short of breath Gastrointestinal: Nausea. denies: Abdominal pain, Diarrhea, Vomiting Genitourinary: Flank pain. denies: Dysuria, Hematuria Male Genitourinary: No symptoms reported Musculoskeletal: Back pain Skin: No symptoms reported Hematologic/Lymphatic: No symptoms reported Neurological/Psychological: No symptoms reported Physical Exam - Vital signs Vitals: Temp Pulse Resp BP Pulse Ox 97.4 F 86 17 124/99 H 96 11/21/19 14:06 11/21/19 14:06 11/21/19 14:06 11/21/19 14:06 11/21/19 14:06 - General General appearance: Appears well, Alert In distress: None - HEENT Head: Normocephalic, Atraumatic Eyes: Normal Conjunctiva: Normal Nasal: Normal Mouth/Lips: Normal Neck: Normal, Supple - Respiratory Respiratory status: No respiratory distress Chest status: Nontender Breath sounds: Normal. No: Rales, Rhonchi, Stridor Chest palpation: Normal - Cardiovascular Rhythm: Regular Heart sounds: S1 appreciated, S2 appreciated - Abdominal Inspection: Normal Distension: No distension Bowel sounds: Normal Tenderness: Nontender Organomegaly: No organomegaly - Back Back: CVA tenderness - right - Extremities General upper extremity: Normal inspection, Normal ROM General lower extremity: Normal inspection, Normal ROM - Neurological Neuro grossly intact: Yes Cognition: Normal [place] Coma Scale Eye Opening: Spontaneous Alex Coma Scale Verbal: Oriented Alex Coma Scale Motor: Obeys Commands [place] Coma Scale Total: 15 - Psychological Associated symptoms: Normal affect, Normal mood - Skin Skin Temperature: Warm Skin Moisture: Dry Skin Color: Normal Course - Re-evaluation Re-evalutation: 11/21/19 16:27 Patient without any fever or leukocytosis. Patient does have elevation in his BUN and urine appears concentrated worrisome for some mild dehydration. Will give patient 1 L of fluids. Patient sleeping, arouses easily to voice. Pain is improved at this time. Will give patient prescription for nausea medication and lidocaine patches to go home his flank tenderness. Patient encouraged to follow-up with his primary doctor for recheck. The patient presents with low back pain without signs of spinal cord compression, cauda equina syndrome, infection, aneurysm, or other serious etiology. The patient is neurologically intact. Given the extremely risk of these diagnoses further testing and evaluation for these possibilities does not appear to be indicated at this time. Patient has been instructed to return if the symptoms worsen or change in any way. The patient was evaluated during the global Covid 19 pandemic. - Vital Signs Vital signs: Temp Pulse Resp BP Pulse Ox 97.6 F 86 11 L 122/55 L 95 11/21/19 15:00 11/21/19 14:06 11/21/19 16:01 11/21/19 16:01 11/21/19 16:01 - Laboratory Result Diagrams: 11/21/19 15:15 11/21/19 15:15 Laboratory results interpreted by me: 11/21/19 11/21/19 15:15 15:15 RBC 4.03 L Hgb 13.2 L RDW 15.3 H Lymph % (Auto) 12.9 L BUN 39 H Labs- Entire Visit 11/21/19 11/21/19 11/21/19 15:15 15:15 15:15 WBC 8.1 RBC 4.03 L Hgb 13.2 L Hct 38.1 MCV 95 MCH 32.8 MCHC 34.7 RDW 15.3 H Plt Count 235 Lymph % (Auto) 12.9 L [place] % (Auto) 7.0 Eos % (Auto) 2.3 Baso % (Auto) 0.6 Absolute Neuts (auto) 6.2 Absolute Lymphs (auto) 1.0 Absolute Monos (auto) 0.6 Absolute Eos (auto) 0.2 Absolute Basos (auto) 0.1 Seg Neutrophils % 77.2 Sodium 137.1 Potassium 4.9 Chloride 107 Carbon Dioxide 25 Anion Gap 5 BUN 39 H Creatinine 0.90 Est GFR ( Amer) > 60 Est GFR (MDRD) Non-Af > 60 Glucose 94 Calcium 9.3 Total Bilirubin 0.3 Direct Bilirubin 0.0 Neonat Total Bilirubin Not Reportable Neonat Direct Bilirubin Not Reportable Neonat Indirect Bili Not Reportable AST 26 ALT 24 Alkaline Phosphatase 107 Total Protein 6.8 Albumin 4.2 Lipase 263.9 Urine Color YELLOW Urine Appearance CLEAR Urine pH 5.0 Ur Specific [place] 1.024 Urine Protein NEGATIVE Urine Glucose (UA) NEGATIVE Urine Ketones NEGATIVE Urine Blood NEGATIVE Urine Nitrite NEGATIVE Urine Bilirubin NEGATIVE Urine Urobilinogen NEGATIVE Ur Leukocyte Esterase NEGATIVE Urine WBC (Auto) 0 Urine RBC (Auto) 0 Squamous Epi Cells Auto <1 Urine Mucus (Auto) OCC Urine Ascorbic Acid NEGATIVE - Diagnostic Test Radiology reviewed: Reports reviewed Discharge - Discharge Clinical Impression: Dehydration, Flank pain Condition: Stable Disposition: HOME, SELF-CARE Instructions: Antinausea Medication ([facility]), Flank Pain ([facility]), Low Back Pain ([facility]) Additional Instructions: Return immediately for any new or worsening symptoms Followup with your primary care provider, call tomorrow to make a followup appointment Prescriptions: Lidocaine [Lidoderm 5% (700 mg) Transdermal Patch] 1 patch TP DAILY PRN #10 adh..patch PRN Reason: Ondansetron [Zofran Odt 4 mg Tablet] 1 tab PO Q6H PRN #12 tab.rapdis PRN Reason: Referrals: DORETHA CAMPOS MD [Primary Care Provider] - Follow up as needed
[2019-11-21 15:34] LABS: ABSOLUTE BASOPHILS # (AUTO) 0.1 10^3/uL (0.0-0.2); ABSOLUTE EOSINOPHILS # (AUTO) 0.2 10^3/uL (0.0-0.6); ABSOLUTE MONOCYTES (AUTO) 0.6 10^3/uL (0.1-1.4); ABSOLUTE NEUT (AUTO) 6.2 10^3/uL (1.7-8.2); BASOPHILS % (AUTO) 0.6 % (0-2); EOSINOPHILS % (AUTO) 2.3 % (0-6); HEMATOCRIT 38.1 % (37.9-51.0); HEMOGLOBIN 13.2 g/dL (13.5-17.0); LYMPHOCYTES % (AUTO) 12.9 % (13-45); MEAN CORPUSCULAR HEMOGLOBIN 32.8 pg (27.0-33.4); MEAN CORPUSCULAR HGB CONC 34.7 g/dL (32.0-36.0); MEAN CORPUSCULAR VOLUME 95 fl (80-97); PLATELET COUNT 235 10^3/uL (150-450); RED BLOOD COUNT 4.03 10^6/uL (4.35-5.55); RED CELL DISTRIBUTION WIDTH 15.3 % (11.5-14.0); SEGMENTED NEUTROPHILS % (AUTO) 77.2 % (42-78); TOTAL CELLS COUNTED % (AUTO) 100 %; WHITE BLOOD COUNT 8.1 10^3/uL (4.0-10.5)
[2019-11-21 15:38] LABS: APPEARANCE,URINE CLEAR; BILIRUBIN,URINE NEGATIVE (NEGATIVE); COLOR,URINE YELLOW; GLUCOSE, URINE NEGATIVE (NEGATIVE); KETONES,URINE NEGATIVE (NEGATIVE); LEUKOCYTE ESTERASE,URINE NEGATIVE (NEGATIVE); NITRITE,URINE NEGATIVE (NEGATIVE); PROTEIN,URINE NEGATIVE (NEGATIVE); URINE SPECIFIC GRAVITY 1.024; UROBILINOGEN,URINE NEGATIVE mg/dL (<2.0)
[2019-11-21 15:51] LABS: ALBUMIN 4.2 g/dL (3.5-5.0); ALKALINE PHOSPHATASE 107 U/L (38-126); ANION GAP 5 (5-19); ASPARTATE AMINO TRANSFERASE 26 U/L (17-59); BILIRUBIN,TOTAL 0.3 mg/dL (0.2-1.3); BLOOD UREA NITROGEN 39 mg/dL (7-20); CALCIUM 9.3 mg/dL (8.4-10.2); CARBON DIOXIDE 25 mmol/L (22-30); CHLORIDE 107 mmol/L (98-107); GLUCOSE 94 mg/dL (75-110); POTASSIUM 4.9 mmol/L (3.6-5.0); TOTAL PROTEIN 6.8 g/dL (6.3-8.2)
--- NOTE | 2019-11-21 16:07 | RADIOLOGY REPORT (SQ) ---
EXAM DESCRIPTION: CT ABD/PELVIS NO ORAL OR IV IMAGES COMPLETED DATE/TIME: 11/21/2019 3:52 pm REASON FOR STUDY: r flank pain COMPARISON: 12/31/2018 TECHNIQUE: CT scan of the abdomen and pelvis performed without intravenous or oral contrast. Images reviewed with lung, soft tissue, and bone windows. Reconstructed coronal and sagittal MPR images revi ewed. All images stored on PACS. All CT scanners at this facility use dose modulation, iterative reconstruction, and/or weight based d osing when appropriate to reduce radiation dose to as low as reasonably achievable (ALARA). [facility]: Dose Right [facility]: CareDose [facility]: Dose Right [facility]: Teradose 4D [facility]: Smart CONSTRVCT RADIATION DOSE: CT Rad equipment meets quality standard of care and radiation dose reduction techniq ues were employed. CTDIvol: 7.8 mGy. DLP: 462 mGy-cm.mGy. LIMITATIONS: None. FINDINGS: LOWER CHEST: No significant findings. No nodules or infiltrates. NON-CONTRASTED LIVER, SPLEEN, ADRENALS: Evaluation limited by lack of IV contrast. No identified sign ificant masses. PANCREAS: No masses. No peripancreatic inflammatory changes. GALLBLADDER: No identified stones by CT criteria. No inflammatory changes to suggest cholecystitis. RIGHT KIDNEY AND URETER: No suspicious masses. Assessment limited by lack of IV contrast. No signif icant calcifications. No hydronephrosis or hydroureter. LEFT KIDNEY AND URETER: No suspicious masses. Assessment limited by lack of IV contrast. No signifi cant calcifications. No hydronephrosis or hydroureter. AORTA AND RETROPERITONEUM: No aneurysm. No retroperitoneal masses or adenopathy. BOWEL AND PERITONEAL CAVITY: No obvious masses or inflammatory changes. No free fluid. APPENDIX: Normal. PELVIS, BLADDER, AND ABDOMINAL WALL:No abnormal masses. No free fluid. Bladder normal. BONES: Nothing acute. OTHER: No other significant finding. IMPRESSION: NO SIGNIFICANT OR ACUTE PROCESS IN THE ABDOMEN OR PELVIS. COMMENT: Quality ID # [id number]: Final reports with documentation of one or more dose reduction techniques (e.g., Automated exposure control, adjustment of the mA and/or kV according to patient size, use of iterative reconstruction technique) TECHNICAL DOCUMENTATION: JOB ID: [id number] 2010 [employer]- All Rights Reserved Reading location - IP/workstation name: [email or web address]
[2019-11-21] MEDS ORDERED: NORMAL SALINE 1000 ML 1,000 ML IV ONE (16:22)
[2019-11-21 17:35] VITALS: BP 102/58
--- NOTE | 2019-11-22 09:06 | EKG REPORT ---
SEVERITY:- NORMAL ECG - SINUS RHYTHM : Confirmed by: Carolina Valenzuela MD 22-Nov-2019 09:06:18
== END 2019-11-21 17:33 | disposition home or self-care (01) ==
LOC: ER 14:00
DX: R10.9 Unspecified abdominal pain (principal); E86.0 Dehydration; R11.0 Nausea; M54.9 Dorsalgia, unspecified; G89.29 Other chronic pain; F17.200 Nicotine dependence, unspecified, uncomplicated; I10 Essential (primary) hypertension; J44.9 Chronic obstructive pulmonary disease, unspecified; Z87.19 Personal history of other diseases of the digestive system
CPT/HCPCS: 93005; 99284; 96361; 96374; 96375; 36415; 83690; 85025; 80053; 81001; 74176; 93010; J1885; J2405; J7030

== ENCOUNTER 2020-01-05 09:55 | Inpatient (IN) | payer BC ==
[2020-01-05] MEDS ORDERED: ZIPRASIDONE MESYLATE INJ/PF 20 MG SDV IM ONE (10:30)
[2020-01-05] MEDS ORDERED: LORAZEPAM 1 MG TABLET PO ONE (10:30)
--- NOTE | 2020-01-05 10:33 | ER Document Report ---
ED General - General Chief Complaint: Altered Mental Status Stated Complaint: SHORT OF BREATH Time Seen by Provider: 01/05/20 10:01 Primary Care Provider: DORETHA CAMPOS MD [Primary Care Provider] - Follow up as needed Notes: 59-year-old male says "I have lost my mind and gone knots." He is pacing around the room. He says he short of breath right now but that not actually his presenting complaint. Is not been sleeping well has been delusional hallucinating and says that he had to be "in a medically induced coma" last time he was here in order to control his behavior. No SI no HI. I was called to the room because the nurses were uncomfortable with his behavior and felt threatened. TRAVEL OUTSIDE OF THE [place] IN LAST 30 DAYS: No - Related Data Allergies/Adverse Reactions: No Known Allergies Allergy (Verified 01/05/20 10:10) Home Medications: zoloft, unknown bp med, klonopin Past Medical History - General Information source: Patient - Social History Smoking Status: Current Every Day Smoker Smoking Education Provided: Yes - The patient ED visit today was directly related to their abuse of tobacco. Frequency of alcohol use: former Drug Abuse: Prescription drugs Family History: Reviewed & Not Pertinent Patient has homicidal ideation: No - Past Medical History Cardiac Medical History: Reports: Hx Hypertension Pulmonary Medical History: Reports: Hx Asthma, Hx COPD Renal/ Medical History: Denies: Hx Peritoneal Dialysis Malignancy Medical History: Reports Hx Skin Cancer - face GI Medical History: Reports: Hx Gastroesophageal Reflux Disease Musculoskeletal Medical History: Reports Hx Arthritis Psychiatric Medical History: Reports: Hx Depression - Immunizations Immunizations up to date: Yes Hx Diphtheria, Pertussis, Tetanus Vaccination: Yes Review of Systems - Review of Systems Notes: REVIEW OF SYSTEMS GEN: Denies fever, chills, weight loss ENT: Denies sore throat, nasal discharge, ear pain EYES: Denies blurry vision, eye pain, discharge CV: Denies chest pain, palpitations, edema RESP: Denies cough, shortness of breath, wheezing GI: Denies abdominal pain, nausea, vomiting, diarrhea MSK: Denies joint pain/swelling, edema, SKIN: Denies rash, skin lesions LYMPH: Denies swollen glands/lymph nodes NEURO: Denies headache, focal weakness or numbness, dizziness PSYCH: Marychuy and delusions PHYSICAL EXAMINATION General: No acute distress, well-nourished Head: Atraumatic, normocephalic ENT: Mouth normal, oropharynx moist, no exudates or tonsillar enlargement Eyes: Conjunctiva normal, pupils equal, lids normal Neck: No JVD, supple, no guarding CVS: Normal rate, regular rhythm, no murmurs Resp: No resp distress, equal and normal breath sounds bilaterally GI: Nondistended, soft, no tenderness to palpation, no rebound or guarding Ext: No deformities, no edema, normal range of motion in upper and lower ext Back: No CVA or midline TTP Skin: No rash, warm Lymphatic: No lymphadeopathy noted Neuro: Awake, alert. Face symmetric. GCS 15. psychiatric: Pacing around the room animated pressured speech Physical Exam - Vital signs Vitals: Temp 98.4 F 01/05/20 10:11 Course - Re-evaluation Re-evalutation: 01/05/20 10:32 Acute maniashortness of breath is likely secondary to this but will check EKG and chest x-ray as well as basic psych labs. The patient will require urgent psychiatric evaluation, and intramuscular drugs to control behavior and for staff safety. Given Geodon and Ativan. Moved to [facility] area with sitter. Will place on IVC. 01/05/20 13:19 Significant for hyperkalemia and acute kidney injury with prerenal pattern. Moved back to [facility]. Started fluids treated for hyperkalemia. Will discuss with hospitalist for admission 01/05/20 13:[address] Baldwin. Moved to room 1. Required some supplemental oxygen secondary to oversedation which is likely due to renal impairment and the meds he was given. He stable from an airway standpoint will be admitted to a monitored bed for his renal failure. Added CK ordered fluids. - Vital Signs Vital signs: Temp Pulse Resp BP Pulse Ox 98.4 F 75 20 100/50 L 92 01/05/20 10:18 01/05/20 13:18 01/05/20 10:18 01/05/20 13:18 01/05/20 13:18 - Laboratory Result Diagrams: 01/05/20 10:55 01/05/20 10:55 Laboratory results interpreted by me: 01/05/20 01/05/20 10:55 10:55 WBC 13.9 H RBC 4.03 L Hgb 13.1 L RDW 14.8 H Lymph % (Auto) 9.8 L Absolute Neuts (auto) 11.4 H Seg Neutrophils % 81.9 H Potassium 6.1 H* BUN 61 H Creatinine 2.90 H Est GFR ( Amer) 27 L Est GFR (MDRD) Non-Af 23 L Salicylates < 1.0 L Acetaminophen < 10 L Critical Care Note - Critical Care Note Total time excluding time spent on procedures (mins): 31 Comments: The above patient is critically ill. Not including procedures, but including direct re-evaluations, speaking with patient and/or consultants, interpreting results, and documenting, I spent the total amount of minute listed listed above on critical care time Discharge - Discharge Clinical Impression: Marychuy, Hyperkalemia Condition: Fair Disposition: ADMITTED INPATIENT Admitting Provider: Nicolasa (Hospitalist) Unit Admitted: Telemetry Referrals: DORETHA CAMPOS MD [Primary Care Provider] - Follow up as needed
[2020-01-05 11:33] LABS: ABSOLUTE BASOPHILS # (AUTO) 0.1 10^3/uL (0.0-0.2); ABSOLUTE EOSINOPHILS # (AUTO) 0.1 10^3/uL (0.0-0.6); ABSOLUTE LYMPHOCYTES (AUTO) 1.4 10^3/uL (0.5-4.7); ABSOLUTE NEUT (AUTO) 11.4 10^3/uL (1.7-8.2); BASOPHILS % (AUTO) 0.5 % (0-2); EOSINOPHILS % (AUTO) 0.6 % (0-6); HEMATOCRIT 38.4 % (37.9-51.0); HEMOGLOBIN 13.1 g/dL (13.5-17.0); LYMPHOCYTES % (AUTO) 9.8 % (13-45); MEAN CORPUSCULAR HEMOGLOBIN 32.5 pg (27.0-33.4); MEAN CORPUSCULAR HGB CONC 34.2 g/dL (32.0-36.0); MEAN CORPUSCULAR VOLUME 95 fl (80-97); MONOCYTES % (AUTO) 7.2 % (3-13); PLATELET COUNT 314 10^3/uL (150-450); RED BLOOD COUNT 4.03 10^6/uL (4.35-5.55); RED CELL DISTRIBUTION WIDTH 14.8 % (11.5-14.0); SEGMENTED NEUTROPHILS % (AUTO) 81.9 % (42-78); TOTAL CELLS COUNTED % (AUTO) 100 %; WHITE BLOOD COUNT 13.9 10^3/uL (4.0-10.5)
--- NOTE | 2020-01-05 12:23 | RADIOLOGY REPORT (SQ) ---
EXAM DESCRIPTION: CHEST SINGLE VIEW IMAGES COMPLETED DATE/TIME: 01/05/2020 12:07 pm REASON FOR STUDY: sob COMPARISON: AP view of the chest from 01/08/2019. EXAM PARAMETERS: NUMBER OF VIEWS: One view. TECHNIQUE: An AP view of the chest was obtained. RADIATION DOSE: NA LIMITATIONS: None. FINDINGS: LUNGS AND PLEURA: Low inspiratory lung volumes without a superimposed consolidation, sizea ble pleural effusion or pneumothorax. MEDIASTINUM AND HILAR STRUCTURES: No mediastinal or hilar contour abnormality. HEART AND VASCULAR STRUCTURES: The cardiac silhouette and pulmonary vasculature are within normal driver its. BONES: Chronic fractures of the posterior right 8th and 9th ribs. HARDWARE: None in the chest. OTHER: No other finding. IMPRESSION: Low inspiratory lung volumes without a superimposed acute cardiopulmonary process. TECHNICAL DOCUMENTATION: JOB ID: [id number] 2010 [employer]- All Rights Reserved Reading location - IP/workstation name: [email or web address]
[2020-01-05 12:43] LABS: ALBUMIN 4.4 g/dL (3.5-5.0); ALKALINE PHOSPHATASE 126 U/L (38-126); ANION GAP 12 (5-19); ASPARTATE AMINO TRANSFERASE 44 U/L (17-59); BILIRUBIN,DIRECT 0.3 mg/dL (0.0-0.4); BILIRUBIN,TOTAL 0.6 mg/dL (0.2-1.3); BLOOD UREA NITROGEN 61 mg/dL (7-20); CALCIUM 9.2 mg/dL (8.4-10.2); CARBON DIOXIDE 26 mmol/L (22-30); CHLORIDE 101 mmol/L (98-107); GLUCOSE 96 mg/dL (75-110); TOTAL PROTEIN 7.2 g/dL (6.3-8.2)
[2020-01-05 12:50] LABS: ACETAMINOPHEN < 10 ug/mL (10-30); ALCOHOL < 10 mg/dL (NONE DETECTED); POTASSIUM 6.1 mmol/L (3.6-5.0); SALICYLATE < 1.0 mg/dL (2.0-20.0)
[2020-01-05] MEDS ORDERED: SODIUM BICARBONATE 8.4% INJ 50 MEQ/50 ML DISP.SYRIN IV ONE (13:20)
[2020-01-05] MEDS ORDERED: ALBUTEROL SULFATE 0.083% NEB 2.5 MG/3 ML AMPUL NEB ONE (13:20)
[2020-01-05] MEDS ORDERED: FUROSEMIDE 40 MG TABLET PO ONE (13:20)
[2020-01-05] MEDS ORDERED: RINGERS SOLUTION,LACTATED 1,000 ML IV ONE (13:20)
[2020-01-05] MEDS ORDERED: CALCIUM GLUCONATE 1000 MG/10 ML INJ IV ONE (13:20)
[2020-01-05] MEDS ORDERED: DEXTROSE 50%-WATER 25 GM/50 ML DISP.SYRIN IV ONE (13:25)
[2020-01-05] MEDS ORDERED: INSULIN REG, HUMAN 100 UNIT/ML 3 ML VIAL (PYX) IV ONE (13:25)
[2020-01-05] MEDS ORDERED: NORMAL SALINE 1000 ML 1,000 ML IV ONE (14:02)
[2020-01-05] MEDS ORDERED: IPRATROPIUM/ALBUTEROL 0.5-2.5 MG/3 ML AMPUL NEB PRN (14:05)
--- NOTE | 2020-01-05 16:16 | PDOC H&P ---
History of Present Illness Admission Date/PCP: 01/05/20 13:53 DORETHA CAMPOS MD History of Present Illness: NASH MORAN is a 59 year old male who was initially on a psychiatric hold but was converted to the medical room. The circumstances of his initial presentation are by no means clear. By the time I saw the patient he was in no shape to provide any kind of a history. He had received large doses of a couple of sedating medications and was passed out for snoring in the bed. He had been involuntarily committed, but the circumstances surrounding that are uncertain at this time. Apparently he was in the room pacing and having hallucinations and the medical staff were afraid of him, so he got an antipsychotic and some Ativan. When he settled down they were able to draw some blood, and they found that his potassium, BUN, and creatinine were all elevated. Past Medical History Cardiac Medical History: Reports: Hypertension Pulmonary Medical History: Reports: Asthma, Chronic Obstructive Pulmonary Disease (COPD) Malignancy Medical History: Reports: Skin Cancer - face GI Medical History: Reports: Gastroesophageal Reflux Disease Musculoskeltal Medical History: Reports: Arthritis Psychiatric Medical History: Reports: Depression Social History Smoking Status: Current Every Day Smoker Electronic Cigarette use?: No Frequency of Alcohol Use: Heavy Hx Recreational Drug Use: No Drugs: None Hx Prescription Drug Abuse: No Family History Family History: Reviewed & Not Pertinent Parental Family History Reviewed: No - Unable to obtain Children Family History Reviewed: No - Unable to obtain Sibling(s) Family History Reviewed.: No - Unable to obtain Medication/Allergy Home Medications: Budesonide/Formoterol Fumarate [Symbicort HFA 160-4.5 mcg Inhaler 6 gm] 1 puff IH Q12 12/31/18 Fluticasone/Vilanterol [Breo 200-25 Mcg Ellipta 14 Dose/Dpi] 1 inh IH Q12 12/31/18 Sertraline HCl [Zoloft 50 mg Tablet] 150 mg PO DAILY 12/31/18 Tiotropium [place] [Spiriva Respimat] 1 puff IH BID 12/31/18 Acetaminophen [Tylenol 325 mg Tablet] 975 mg PO Q6HP PRN tablet 01/15/19 Clonazepam [Klonopin 1 mg Tablet] 0.5 mg PO QHS #30 tablet 01/15/19 Ipratropium/Albuterol Sulfate [Duoneb 3 ml Ampul] 3 ml NEB RTQ4HP PRN #30 vial.neb 01/15/19 Metoprolol Tartrate [Lopressor 50 mg Tablet] 50 mg PO Q12 #60 tablet 01/15/19 Sucralfate [Carafate 1 gm Tablet] 1 gm PO ACHS #120 tablet 01/15/19 Venlafaxine HCl ER [Effexor Xr 37.5 mg Cap.sr] 37.5 mg PO DAILY #30 cap.sr.24h 01/15/19 Lidocaine [Lidoderm 5% (700 mg) Transdermal Patch] 1 patch TP DAILY PRN #10 adh..patch 11/21/19 Ondansetron [Zofran Odt 4 mg Tablet] 1 tab PO Q6H PRN #12 tab.rapdis 11/21/19 Allergies/Adverse Reactions: No Known Allergies Allergy (Verified 01/05/20 10:10) Review of Systems ROS unobtainable: Due to mental status Physical Exam Vital Signs: Temp Pulse Resp BP Pulse Ox 98.4 F 75 14 109/67 100 01/05/20 10:18 01/05/20 13:18 01/05/20 14:01 01/05/20 14:01 01/05/20 14:01 Intake & Output 01/04/20 01/05/20 01/06/20 06:59 06:59 06:59 Intake Total 1000 Balance 1000 Weight 80.286 kg General appearance: PRESENT: no acute distress - Somnolent, maintaining his airway, disheveled, obese Head exam: PRESENT: atraumatic, normocephalic Eye exam: PRESENT: EOMI - Sluggish, PERRLA - Sluggish. ABSENT: conjunctival injection, nystagmus, scleral icterus Ear exam: PRESENT: normal external ear exam Mouth exam: PRESENT: dry mucosa, neck supple Throat exam: ABSENT: post pharyngeal erythema Neck exam: PRESENT: full ROM. ABSENT: JVD, lymphadenopathy, meningismus, thyrom egaly Respiratory exam: PRESENT: clear to auscultation mandi, symmetrical, unlabored. ABSENT: accessory muscle use, chest wall tenderness, crackles, prolonged expiratory phas, retraction, rhonchi, wheezes Cardiovascular exam: PRESENT: RRR, +S1, +S2 Pulses: PRESENT: normal carotid pulses Vascular exam: PRESENT: normal capillary refill GI/Abdominal exam: PRESENT: normal bowel sounds, soft. ABSENT: guarding, rebound, tenderness Extremities exam: ABSENT: clubbing, pedal edema Musculoskeletal exam: PRESENT: normal inspection. ABSENT: deformity Neurological exam: PRESENT: altered Skin exam: PRESENT: dry - A little sweaty, warm Results Laboratory Results: 01/05/20 10:55 01/05/20 10:55 01/05/20 01/05/20 10:55 10:55 WBC 13.9 H RBC 4.03 L Hgb 13.1 L Hct 38.4 MCV 95 MCH 32.5 MCHC 34.2 RDW 14.8 H Plt Count 314 Seg Neutrophils % 81.9 H Sodium 139.2 Potassium 6.1 H* Chloride 101 Carbon Dioxide 26 Anion Gap 12 BUN 61 H Creatinine 2.90 H Est GFR ( Amer) 27 L Glucose 96 Calcium 9.2 Total Bilirubin 0.6 AST 44 Alkaline Phosphatase 126 Total Protein 7.2 Albumin 4.4 Lipase 56.3 01/05/20 01/05/20 10:55 10:55 Creatine Kinase 1198 H CK-MB (CK-2) 11.20 H Impressions: Chest X-Ray 01/05/20 10:02 IMPRESSION: Low inspiratory lung volumes without a superimposed acute cardiopulmonary process. Assessment and Plan - Diagnosis (1) Hyperkalemia Is this a current diagnosis for this admission?: Yes Plan: He received fluids, insulin, glucose, and calcium. We will repeat his labs later on and keep him on telemetry. (2) Marychuy Is this a current diagnosis for this admission?: Yes Plan: He has been involuntarily committed. Behavioral health has been consulted. (3) Acute kidney injury Is this a current diagnosis for this admission?: Yes Plan: Appears prerenal. He is gotten some IV fluids, which we will continue. We will monitor his urine output and his electrolytes. (4) Acute metabolic encephalopathy Is this a current diagnosis for this admission?: Yes Plan: There is a toxic component to this as well. He got an antipsychotic and a benzodiazepine during his manic episode. That currently has him fairly well sedated. He is protecting his airway. We will monitor him closely. Previously noted interventions for his potassium and his renal failure are noted. (5) Alcohol abuse Is this a current diagnosis for this admission?: Yes Plan: The extent of his alcohol use is not known. Will try to determine this. We will monitor him for signs of withdrawal. (6) Dehydration Is this a current diagnosis for this admission?: Yes Plan: IV fluids as previously noted. Will monitor urine output. - Time Time Spent with patient: 35 or more minutes - Inpatient Certification Based on my medical assessment, after consideration of the patient's comorbidities, presenting symptoms, or acuity I expect that the services needed warrant INPATIENT care.: Yes I certify that my determination is in accordance with my understanding of Medicare's requirements for reasonable and necessary INPATIENT services [42 CFR 412.3e].: Yes Medical Necessity: Significant Comorbidiites Make Outpatient Treatment Too Risky, Need Close Monitoring Due to Risk of Patient Decompensation, Need For IV Fluids, Need For Continuous Telemetry Monitoring, Need for Neurological Checks, Risk of Complication if Not Cared For in Hospital
[2020-01-05] MEDS: NORMAL SALINE 1000 ML 1,000 ML IV PRN (16:52)
--- NOTE | 2020-01-05 18:11 | PSYCHOLOGICAL NOTE ---
Psych Note - Psych Note Date seen by psych provider: 01/05/20 Time seen by psych provider: 17:30 - Attempted Psych Note: Reason for Consult: possibly manic Patient presents to the ED with complaint of shortness of breath and being unable to concentrate. Onset yesterday. Patient states his made him come. Patient is sweating profusely. Patient states he was admitted a year ago for the same. Patient is currently unable to engage in evaluation; he was provided m edications and is currently snoring and unable to awaken. At this time, the patient has been medically admitted. There is currently no IVC paperwork on the patient's chart. The patient's presentation is reportedly similar to last year. Patient was admitted last year on 12/31/2018 for Acute metabolic encephalopathy, Leukocytosis, Acute kidney injury, Rhabdomyolysis, Hypernatremia and Alcohol abuse. Clinician notes the attending physicians felt the encephalopathy was multifactorial -possibly due to viral meningitis versus chronic EtOH use and withdrawal versus prolonged exposure to sedation. The behavioral health team requests a re-consult once the patient is medically stabilized to assist in determining if his presentation is medical in nature or psychiatric. The patient does have a history of alcohol abuse and was seen by the behaviour health team prior to going to a SNF during the 12/31/2018 visit. The patient identified wanting to continue working with the social workers at the SNF for possible inpatient residential substance abuse treatment. It is unknown if the patient followed through with this plan. It is noted that if the patient's presentation is in connection to withdrawal this time and he is suffering from delirium, the patient will be unable to go to a detox facility such as [facility] and/or the [facility] as they are unable to facilitate medical detox (delirium). Dr. Bonilla was consulted on the care and management of this patient.
--- NOTE | 2020-01-05 18:20 | EKG REPORT ---
SEVERITY:- OTHERWISE NORMAL ECG - SINUS RHYTHM BORDERLINE LEFT AXIS DEVIATION : Confirmed by: Ovidio Shukla MD 05-Jan-2020 18:20:13
[2020-01-05] MEDS: HEPARIN SOD (PORCINE) 5,000 UNIT/ML 1 ML VIAL SUBCUT SCH (23:10)
[2020-01-06 06:53] LABS: HEMATOCRIT 35.7 % (37.9-51.0); HEMOGLOBIN 12.1 g/dL (13.5-17.0); MEAN CORPUSCULAR HEMOGLOBIN 32.3 pg (27.0-33.4); MEAN CORPUSCULAR VOLUME 95 fl (80-97); PLATELET COUNT 238 10^3/uL (150-450); RED BLOOD COUNT 3.75 10^6/uL (4.35-5.55); RED CELL DISTRIBUTION WIDTH 14.8 % (11.5-14.0); WHITE BLOOD COUNT 8.9 10^3/uL (4.0-10.5)
[2020-01-06 07:13] LABS: ANION GAP 7 (5-19); BLOOD UREA NITROGEN 47 mg/dL (7-20); CALCIUM 8.7 mg/dL (8.4-10.2); CARBON DIOXIDE 23 mmol/L (22-30); CHLORIDE 108 mmol/L (98-107); GLUCOSE 84 mg/dL (75-110); POTASSIUM 5.6 mmol/L (3.6-5.0)
[2020-01-06] MEDS: HEPARIN SOD (PORCINE) 5,000 UNIT/ML 1 ML VIAL SUBCUT SCH ×3 (07:22→21:06)
[2020-01-06 08:06] LABS: APPEARANCE,URINE CLEAR; BILIRUBIN,URINE NEGATIVE (NEGATIVE); COLOR,URINE STRAW; GLUCOSE, URINE NEGATIVE (NEGATIVE); KETONES,URINE TRACE mg/dL (NEGATIVE); LEUKOCYTE ESTERASE,URINE NEGATIVE (NEGATIVE); NITRITE,URINE NEGATIVE (NEGATIVE); PROTEIN,URINE NEGATIVE (NEGATIVE); URINE SPECIFIC GRAVITY 1.014; UROBILINOGEN,URINE NEGATIVE mg/dL (<2.0)
[2020-01-06 08:26] LABS: URINE AMPHETAMINES SCREEN NEGATIVE; URINE BARBITURATES SCREEN NEGATIVE; URINE BENZODIAZEPINES SCREEN NEGATIVE; URINE COCAINE SCREEN NEGATIVE; URINE MARIJUANA (THC) SCREEN NEGATIVE; URINE METHADONE SCREEN NEGATIVE; URINE PHENCYCLIDINE SCREEN NEGATIVE
[2020-01-06] MEDS: NORMAL SALINE 1000 ML 1,000 ML IV PRN (09:56)
--- NOTE | 2020-01-06 15:04 | PDOC PROGRESS REPORT ---
Subjective Progress Note for:: 01/06/20 Subjective:: No adverse events overnight. He is awake and alert today. He has some psychomotor agitation. His renal function has returned to normal. He has been eating and drinking without difficulty. Reason For Visit: TOXIC ENCEPHALOPATHY,HYPERKALEMIA,PRAVEEN,DEHYDRATION Physical Exam Vital Signs: Temp Pulse Resp BP Pulse Ox 98.3 F 92 18 135/65 H 97 01/06/20 11:09 01/06/20 14:00 01/06/20 11:09 01/06/20 11:09 01/06/20 11:09 Intake & Output 01/05/20 01/06/20 01/07/20 06:59 06:59 06:59 Intake Total 3480 730 Output Total 1100 450 Balance 2380 280 Weight 59.5 kg General appearance: PRESENT: no acute distress, cooperative, disheveled Respiratory exam: PRESENT: clear to auscultation mandi, symmetrical, unlabored. ABSENT: accessory muscle use, chest wall tenderness, crackles, prolonged expiratory phas, rhonchi, tachypnea, wheezes Cardiovascular exam: PRESENT: RRR, +S1, +S2 Pulses: PRESENT: normal carotid pulses Vascular exam: PRESENT: normal capillary refill GI/Abdominal exam: PRESENT: normal bowel sounds, soft. ABSENT: distended, guarding, rebound, tenderness Extremities exam: ABSENT: clubbing, pedal edema Musculoskeletal exam: PRESENT: normal inspection. ABSENT: deformity Neurological exam: PRESENT: alert, awake, oriented to person, oriented to place, oriented to situation Psychiatric exam: PRESENT: agitated, unusual affect Focused psych exam: PRESENT: internal stimuli, pressured speech, psychomotor agitation Skin exam: PRESENT: dry, warm Results Laboratory Results: 01/06/20 06:03 01/06/20 06:03 01/06/20 01/06/20 01/06/20 06:03 06:03 07:50 WBC 8.9 RBC 3.75 L Hgb 12.1 L Hct 35.7 L MCV 95 MCH 32.3 MCHC 34.0 RDW 14.8 H Plt Count 238 Sodium 137.7 Potassium 5.6 H Chloride 108 H Carbon Dioxide 23 Anion Gap 7 BUN 47 H Creatinine 1.20 Est GFR ( Amer) > 60 Glucose 84 Calcium 8.7 Urine Color STRAW Urine Appearance CLEAR Urine pH 6.0 Ur Specific [place] 1.014 Urine Protein NEGATIVE Urine Glucose (UA) NEGATIVE Urine Ketones TRACE H Urine Blood SMALL H Urine Nitrite NEGATIVE Ur Leukocyte Esterase NEGATIVE Urine WBC (Auto) 0 Urine RBC (Auto) 0 01/05/20 01/05/20 10:55 10:55 Creatine Kinase 1198 H CK-MB (CK-2) 11.20 H Impressions: Chest X-Ray 01/05/20 10:02 IMPRESSION: Low inspiratory lung volumes without a superimposed acute cardiopulmonary process. Assessment and Plan - Diagnosis (1) Hyperkalemia Is this a current diagnosis for this admission?: Yes Plan: Resolved (2) Marychuy Is this a current diagnosis for this admission?: Yes Plan: He is medically cleared for psychiatric evaluation. (3) Acute kidney injury Is this a current diagnosis for this admission?: Yes Plan: Resolved (4) Acute metabolic encephalopathy Is this a current diagnosis for this admission?: Yes Plan: Resolved (5) Alcohol abuse Is this a current diagnosis for this admission?: Yes Plan: We will monitor him for signs of withdrawal. (6) Dehydration Is this a current diagnosis for this admission?: Yes Plan: Resolved. We will discontinue his IV fluids. - Time Time Spent with patient: 15-24 minutes
--- NOTE | 2020-01-06 15:27 | PSYCHOLOGICAL NOTE ---
Psych Note - Psych Note Date seen by psych provider: 01/06/20 Time seen by psych provider: 14:15 - [id number] collateral from . [id number] evaluation with patient. Psych Note: Patient is a 59 year old male who presented to the Emergency Department yesterday morning via POV for SOB, inability to concentrate and confusion for the past couple days. Patient told medical staff his made him come. Medical documentation from triage noted patient was sweating profusely. His oxygen levels were 88-90% and he was put on 2L O2 NC. Documentation noted while he was sleeping (in ED prior to being admitted) he moved about frequently and switched multiple positions. Also noted was him shrugging his shoulders in "a tick like fashion" multiple times. He was subsequently admitted to hospitalist services for hyperkalemia, cameron, acute kidney injury, acute metabolic encephalopathy, alcohol abuse and dehydration. This clinician evaluated patient 01/09/2019 for alcohol detox. At that time he had noted drinking the past 30-40 years, daily and had been drinking seltzer dri nks at that time. He also admitted to using Benzodiazepines (Klonopin). Patient endorsed a desire for detox so linked him with [facility]. He had been on Zoloft 100MG QD during that visit which was decreased to 50MG QAM and added Effexor 37/5MG QD. Patient denied any alcohol use or drug use since getting out ot [facility] about a year ago. He kept saying "give me a drug test" and was made aware one had already been collected. He stated "I came to the ED because I felt like I was losing my mind and couldn't concentrate." He was able to list his medications: Methotrexate and Folic Acid for arthritis, Atorvastatin, Amlodipine, Baclofen QID for back pain, was supposed to be on Vimovo but his insurance was funny about it so he is taking Naproxen and Primidone separately. He noted he goes to [facility] for his back pain issues. Patient stated he had a bone density test 2 months ago and has osteoporosis. When asked about the Cyclobenzaprine he said that was recently added (12/21/2019). When asked if he was taking the Baclofen and Cyclobenzaprine together he said yes. He was educated how these are the same class of medication and are sedative. He commented "I'm not a doctor I didn't know I was just taking the medication prescribed to me." When confronted about his and son finding medications in his pill bottle that were not the prescription he talked about his Zoloft specifically, how he is prescribed 150MG QD, his noted a pill bottle with 60 pills filled 20 days ago but he had been doubling up then tripling up on his 50MG to make correct dose when he ran out of the 100MG. He did not reply one way or the other with reference to the hydrocodone found, Prozac pill and other half pills. 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 When challenged about his description, 's description and medical team's observation of behaviors suggests withdrawal from benzodiazepines or opiates he still was adamant he had not been using medications other then what is prescribed. Informed him he should get rid of any ol or expires medications and allow someone to at least assist in administration of medications. Also encouraged him to follow through with what his PCM Dr. Lucero recommends in terms of treatments. Patient noted hallucinations of seeing things on the TV (very racial issues and Trump) when he woke up yesterday, He denied any of this today. Patient was alert and oriented to self, person, place, time and situation. Mood was euthymic with congruent affect. He denied current SI/HI and these were never presenting concerns. Patient did not appear to be responding to internal stimuli as evidenced by fair eye contact and answering questions appropriately when addressed. Thought processes were linear and organized. Conversational speech was within normal limits for rate, tone and prosody. Intellectual abilities are estimated to be average. Insight, judgment and impulse control were fair as evidenced by being engaged and carrying on dialogue conversation. From [id number] obtained collateral from patient's Nat Arriaga ([phone]). She stated patient did go to [facility] last year and spent a few days there. She stated she is unaware of any follow up they may have connected him to. stated he has not drank since then (to her knowledge). She stated the present episode was observed the night before last when he was 2.5 hours late getting home from work. She described it as "almost tweaking, real jittery, nonstop frantic movement, then he said his back and stomach hurt, he dry heaved, when he was sitting or laying down his arms and legs moved constantly, he paced around, rolled over and over in bed, and went outside in his underwear a couple times." identified "he's had smaller episodes over the last few months, they were milder, where it took him awhile to settle himself down." stated "when he sleeps he slings his legs around and doesn't get settled." She acknowledged her and their son went through his medications to provide list to hospital and they found hydrocodone in one bottle (it was not a hydrocodone bottle), 1 Prozac pill and a few other half pills that they had not identified. She reported patient's PCM is Dr. Lucero and that is his only provider. She noted Dr. Lucero has tried to get patient to get involved with AA or other treatment/supports but patient "won't do any of it." stated they have grandchildren that visit frequently and a handicapped child so he needs to get help. Review of prescribed medications in Hotlist via patient's pharmacy the only psy chiatric medication listed is Zoloft 50MG QAM that was filled on 12/16/2019. Earlier in the year it looks like he was on 100MG QAM. Diagnosis: AMS Concerns for Benzodiazepine or Opioid withdrawal based on 's report of presentation, patient's report of problems and medical staff observation History of Alcohol and Benzodiazepine Use (went to [facility] about this time last year, he maintain he has been sober since). Impression/Plan: Patient is cleared from acute psychiatric services. Today he presented linear and organized, able to engage and carry on dialogue conversation and not altered. Patient demonstrated inconsistent presentation as evidenced by good memory related to last year's events and prescribed medications but not about how he takes his current regimen and what all he has in terms of medications at his home (in fact he avoided this questioning). Recommendation for outpatient mental health therapy and medication management. Recommendation for Neurology follow up. Encouraged patient to listen to his PCM Dr. Lucero who has already tried to link him to supports. Psychoeducated patient about Baclofen and Flexeril being the same kind of medications which are sedative and should not be taken together (he said he was). was instructed to lock up any and all medications that are outdated, old, and she said they had. Consulted with Dr. Bonilla regarding the management and care of patient. Attending Hospitalist will be made aware tomorrow afternoon.
[2020-01-07] MEDS: HEPARIN SOD (PORCINE) 5,000 UNIT/ML 1 ML VIAL SUBCUT SCH (05:12)
[2020-01-07 06:57] LABS: HEMATOCRIT 37.9 % (37.9-51.0); HEMOGLOBIN 12.9 g/dL (13.5-17.0); MEAN CORPUSCULAR HEMOGLOBIN 32.5 pg (27.0-33.4); MEAN CORPUSCULAR HGB CONC 34.1 g/dL (32.0-36.0); MEAN CORPUSCULAR VOLUME 95 fl (80-97); PLATELET COUNT 228 10^3/uL (150-450); RED BLOOD COUNT 3.98 10^6/uL (4.35-5.55); RED CELL DISTRIBUTION WIDTH 14.7 % (11.5-14.0); WHITE BLOOD COUNT 5.7 10^3/uL (4.0-10.5)
[2020-01-07 07:20] LABS: ANION GAP 6 (5-19); BLOOD UREA NITROGEN 29 mg/dL (7-20); CARBON DIOXIDE 23 mmol/L (22-30); CHLORIDE 107 mmol/L (98-107); GLUCOSE 91 mg/dL (75-110); POTASSIUM 5.4 mmol/L (3.6-5.0)
[2020-01-07 13:09] VITALS: BP 135/71
--- NOTE | 2020-01-07 17:11 | PDOC DISCHARGE SUMMARY ---
Impression - Admit/DC Date/PCP Admission Date/Primary Care Provider: 01/05/20 13:53 DORETHA CAMPOS MD Discharge Date: 01/07/20 - Discharge Diagnosis (1) Hyperkalemia Is this a current diagnosis for this admission?: Yes (2) [place] Is this a current diagnosis for this admission?: Yes (3) Acute kidney injury Is this a current diagnosis for this admission?: Yes (4) Acute metabolic encephalopathy Is this a current diagnosis for this admission?: Yes (5) Alcohol abuse Is this a current diagnosis for this admission?: Yes (6) Dehydration Is this a current diagnosis for this admission?: Yes - Additional Information Resuscitation Status: Full Code Discharge Diet: Cardiac Discharge Activity: Activity As Tolerated Referrals: DORETHA CAMPOS MD [Primary Care Provider] - 01/19/20 1:30 pm () Home Medications: Sertraline HCl [Zoloft 50 mg Tablet] 50 mg PO DAILY 12/31/18 Alendronate Sodium 70 mg PO RUGGIERO@1000 01/05/20 Amlodipine Besylate/Benazepril [Amlodipine-Benazepril 10-40 mg] 1 cap PO DAILY 01/05/20 Atorvastatin Calcium [Lipitor 40 mg Tablet] 40 mg PO QHS 01/05/20 Baclofen [Baclofen 20 mg Tablet] 20 mg PO QIDP PRN 01/05/20 Cyclobenzaprine HCl [Flexeril 10 mg Tablet] 10 mg PO TID 01/05/20 Folic Acid [Folvite 1 mg Tablet] 1 mg PO DAILY 01/05/20 Methotrexate Sodium [Rheumatrex 2.5 mg Tablet] 20 mg PO RUGGIERO@1000 01/05/20 Naproxen 500 mg PO BID 01/05/20 Omeprazole 20 mg PO DAILY 01/05/20 Trazodone HCl [Desyrel 50 mg Tablet] 100 mg PO QHS 01/05/20 History of Present Illiness History of Present Illness: NASH MORAN is a 59 year old male who was initially on a psychiatric hold but was converted to the medical room. The circumstances of his initial presentation are by no means clear. By the time I saw the patient he was in no shape to provide any kind of a history. He had received large doses of a couple of sedating medications and was passed out for snoring in the bed. He had been involuntarily committed, but the circumstances surrounding that are uncertain at this time. Apparently he was in the room pacing and having hallucinations and the medical staff were afraid of him, so he got an antipsychotic and some Ativan. When he settled down they were able to draw some blood, and they found that his potassium, BUN, and creatinine were all elevated. Hospital Course Hospital Course: His renal failure and his electrolyte disturbances corrected quickly. He seemed a little hypomanic yesterday, but he was very calm and interactive today. He was seen by behavioral health and cleared from acute psychiatric services. They recommended that he follow-up as an outpatient for alcohol and substance abuse issues. He is giving us a different story that his was giving the ER. He did not require any new home medications. His labs and examination were reassuring and he was discharged in stable condition. Physical Exam Vital Signs: Temp Pulse Resp BP Pulse Ox 97.8 F 85 16 135/71 H 97 01/07/20 13:03 01/07/20 13:03 01/07/20 13:03 01/07/20 13:03 01/07/20 13:03 Intake & Output 01/06/20 01/07/20 01/08/20 06:59 06:59 06:59 Intake Total 3480 2730 Output Total 1100 1075 Balance 2380 1655 Weight 59.5 kg 59.6 kg General appearance: PRESENT: no acute distress, cooperative, disheveled Respiratory exam: PRESENT: clear to auscultation mandi, symmetrical, unlabored. ABSENT: accessory muscle use, chest wall tenderness, crackles, prolonged expiratory phas, rhonchi, tachypnea, wheezes Cardiovascular exam: PRESENT: RRR, +S1, +S2 Pulses: PRESENT: normal carotid pulses Vascular exam: PRESENT: normal capillary refill GI/Abdominal exam: PRESENT: normal bowel sounds, soft. ABSENT: distended, guarding, rebound, tenderness Extremities exam: ABSENT: clubbing, pedal edema Musculoskeletal exam: PRESENT: normal inspection. ABSENT: deformity Neurological exam: PRESENT: alert, awake, oriented to person, oriented to place, oriented to situation Psychiatric exam: PRESENT: Appropriate affect, normal mood Skin exam: PRESENT: dry, warm Results Laboratory Results: WBC 5.7 10^3/uL (4.0-10.5) 01/07/20 06:01 RBC 3.98 10^6/uL (4.35-5.55) L 01/07/20 06:01 Hgb 12.9 g/dL (13.5-17.0) L 01/07/20 06:01 Hct 37.9 % (37.9-51.0) 01/07/20 06:01 MCV 95 fl (80-97) 01/07/20 06:01 MCH 32.5 pg (27.0-33.4) 01/07/20 06:01 MCHC 34.1 g/dL (32.0-36.0) 01/07/20 06:01 RDW 14.7 % (11.5-14.0) H 01/07/20 06:01 Plt Count 228 10^3/uL (150-450) 01/07/20 06:01 Lymph % (Auto) 9.8 % (13-45) L 01/05/20 10:55 [place] % (Auto) 7.2 % (3-13) 01/05/20 10:55 Eos % (Auto) 0.6 % (0-6) 01/05/20 10:55 Baso % (Auto) 0.5 % (0-2) 01/05/20 10:55 Absolute Neuts (auto) 11.4 10^3/uL (1.7-8.2) H 01/05/20 10:55 Absolute Lymphs (auto) 1.4 10^3/uL (0.5-4.7) 01/05/20 10:55 Absolute Monos (auto) 1.0 10^3/uL (0.1-1.4) 01/05/20 10:55 Absolute Eos (auto) 0.1 10^3/uL (0.0-0.6) 01/05/20 10:55 Absolute Basos (auto) 0.1 10^3/uL (0.0-0.2) 01/05/20 10:55 Seg Neutrophils % 81.9 % (42-78) H 01/05/20 10:55 Sodium 136.1 mmol/L (137-145) L 01/07/20 06:01 Potassium 5.4 mmol/L (3.6-5.0) H 01/07/20 06:01 Chloride 107 mmol/L (98-107) 01/07/20 06:01 Carbon Dioxide 23 mmol/L (22-30) 01/07/20 06:01 Anion Gap 6 (5-19) 01/07/20 06:01 BUN 29 mg/dL (7-20) H 01/07/20 06:01 Creatinine 0.84 mg/dL (0.52-1.25) 01/07/20 06:01 Est GFR ( Amer) > 60 (>60) 01/07/20 06:01 Est GFR (MDRD) Non-Af > 60 (>60) 01/07/20 06:01 Glucose 91 mg/dL (75-110) 01/07/20 06:01 POC Glucose 123 mg/dL (70-110) H 01/05/20 15:07 Calcium 9.0 mg/dL (8.4-10.2) 01/07/20 06:01 Total Bilirubin 0.6 mg/dL (0.2-1.3) 01/05/20 10:55 Direct Bilirubin 0.3 mg/dL (0.0-0.4) 01/05/20 10:55 Neonat Total Bilirubin Not Reportable 01/05/20 10:55 Neonat Direct Bilirubin Not Reportable 01/05/20 10:55 Neonat Indirect Bili Not Reportable 01/05/20 10:55 AST 44 U/L (17-59) 01/05/20 10:55 ALT 28 U/L (<50) 01/05/20 10:55 Alkaline Phosphatase 126 U/L (38-126) 01/05/20 10:55 Creatine Kinase 1198 U/L (55-170) H 01/05/20 10:55 CK-MB (CK-2) 11.20 ng/mL (<4.55) H 01/05/20 10:55 Total Protein 7.2 g/dL (6.3-8.2) 01/05/20 10:55 Albumin 4.4 g/dL (3.5-5.0) 01/05/20 10:55 Lipase 56.3 U/L (23-300) 01/05/20 10:55 Urine Color STRAW 01/06/20 07:50 Urine Appearance CLEAR 01/06/20 07:50 Urine pH 6.0 (5.0-9.0) 01/06/20 07:50 Ur Specific [place] 1.014 05/27/20 07:50 Urine Protein NEGATIVE mg/dL (NEGATIVE) 01/06/20 07:50 Urine Glucose (UA) NEGATIVE mg/dL (NEGATIVE) 01/06/20 07:50 Urine Ketones TRACE mg/dL (NEGATIVE) H 01/06/20 07:50 Urine Blood SMALL (NEGATIVE) H 01/06/20 07:50 Urine Nitrite NEGATIVE (NEGATIVE) 01/06/20 07:50 Urine Bilirubin NEGATIVE (NEGATIVE) 01/06/20 07:50 Urine Urobilinogen NEGATIVE mg/dL (<2.0) 01/06/20 07:50 Ur Leukocyte Esterase NEGATIVE (NEGATIVE) 01/06/20 07:50 Urine WBC (Auto) 0 /HPF 01/06/20 07:50 Urine RBC (Auto) 0 /HPF 01/06/20 07:50 Urine Mucus (Auto) RARE /LPF 01/06/20 07:50 Urine Ascorbic Acid NEGATIVE (NEGATIVE) 01/06/20 07:50 Salicylates < 1.0 mg/dL (2.0-20.0) L 01/05/20 10:55 Urine Opiates Screen NEGATIVE 01/06/20 07:50 Urine Methadone Screen NEGATIVE 01/06/20 07:50 Acetaminophen < 10 ug/mL (10-30) L 01/05/20 10:55 Ur Barbiturates Screen NEGATIVE 01/06/20 07:50 Ur Phencyclidine Scrn NEGATIVE 01/06/20 07:50 Ur Amphetamines Screen NEGATIVE 01/06/20 07:50 U Benzodiazepines Scrn NEGATIVE 01/06/20 07:50 Urine Cocaine Screen NEGATIVE 01/06/20 07:50 U Marijuana (THC) Screen NEGATIVE 01/06/20 07:50 Serum Alcohol < 10 mg/dL (NONE DETECTED) 01/05/20 10:55 01/05/20 10:55 CK-MB (CK-2) 11.20 H Impressions: Chest X-Ray 01/05/20 10:02 IMPRESSION: Low inspiratory lung volumes without a superimposed acute cardiopulmonary process. Plan Time Spent: Greater than 30 Minutes Stroke Is this a Stroke Patient?: No Acute Heart Failure - Is this a Heart Failure Patient?: No
== END 2020-01-07 13:57 | disposition home or self-care (01) | DRG 640 ==
LOC: ER 09:55 → EH 13:53 → 3S 21:22
PROVIDERS: ADMIT Family Medicine; ATTEND Family Medicine
DX: E87.5 Hyperkalemia (principal); G93.41 Metabolic encephalopathy; G92 Toxic encephalopathy; F30.9 Manic episode, unspecified; N17.9 Acute kidney failure, unspecified; F10.10 Alcohol abuse, uncomplicated; E86.0 Dehydration; I10 Essential (primary) hypertension; J44.9 Chronic obstructive pulmonary disease, unspecified; K21.9 Gastro-esophageal reflux disease without esophagitis; F17.210 Nicotine dependence, cigarettes, uncomplicated; Z79.899 Other long term (current) drug therapy; Z85.828 Personal history of other malignant neoplasm of skin
CPT/HCPCS: 36415; 71045; 80048; 80076; 80307; 81001; 82550; 82553; 82962; 83690; 85025; 85027; 93005; 93010; 94640; 96374; 99291; J0610; J1644; J1815; J3486; J3490; J7030